=== PATIENT | male | born 1940 | race Caucasian/White ===

== ENCOUNTER 2017-01-05 16:29 | Inpatient (IN) | payer MEDICARE, MEDICAID ==
[2017-01-05] MEDS: Piperacillin/Tazobactam 2.25 GM in Sodium Chloride 0.9% 50 ML IV SCH ×2 (18:51→23:57)
[2017-01-05] MEDS ORDERED: Nitroglycerin 0.4 MG Tab.SL SL PRN (18:53)
[2017-01-05] MEDS ORDERED: Acetaminophen 500 MG Tab PO PRN (18:54)
[2017-01-05] MEDS ORDERED: Vancomycin 1.7 GM in Sodium Chloride 0.9% 500 ML IV ONE (19:00)
[2017-01-05] MEDS: Furosemide 20 MG/2 ML VIAL IVPUSH SCH (23:52)
[2017-01-06] MEDS: Carvedilol 3.125 MG Tab PO SCH ×3 (00:01→19:30)
--- NOTE | 2017-01-06 00:30 | HP ---
This is an admission history and physical for a patient who was admitted directly from clinic today. Source of information came from the patient's spouse and from the patient himself. CHIEF COMPLAINT: Weakness, lightheadedness, and occasional slurred speech. HISTORY OF PRESENT ILLNESS: The patient has known bladder cancer. He has had hematuria with lesions cauterized by his urologist, an indwelling Gruber was in place for a period of time, and when it was removed, he redeveloped his hematuria and his urologist is aware of this. He had seen Dr. Barros in clinic for a UTI in late October 2016 and was treated with Cipro antibiotic. He did well for a couple of weeks, returned to clinic, I saw him about a week ago, and he has was complaining of head cold-type symptoms. We placed him on Ceftin for probable acute on chronic sinusitis at that time, and he came back in for his one- week followup because he was developing worsening dizziness and weakness. The patient had labs and x-rays performed in clinic, and he had significant abnormalities requiring him to be admitted to the hospital. SOCIAL HISTORY: The patient is an active smoker as is his spouse. He uses alcohol socially. ALLERGIES: HE HAS NO KNOWN DRUG ALLERGIES. HE HAS NO LATEX ALLERGIES. PAST MEDICAL HISTORY: Medical/surgical history is positive for a 1. Left middle cerebral artery CVA. 2. Carotid stenosis with endarterectomy. 3. History of colon polyps. 4. History of bladder cancer with persisting hematuria. 5. Chronic renal insufficiency. 6. COPD. 7. History of abdominal aortic aneurysm. 8. 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 9. A history of hypertension. MEDICATIONS: Current medications upon admission to the hospital are Coreg 3.125 b.i.d., aspirin 81 mg p.o. daily, nitroglycerin 0.4 mg sublingual p.r.n., and Ceftin 500 mg p.o. b.i.d. REVIEW OF SYSTEMS: GENERAL/VITAL SIGNS: The patient admits to fatigue, but he has had no fever or weight loss. His weight has been steady at approximately 145 to 148 pounds. HEENT: Eyes, he reports no vision changes. ENT, reports that his head cold has improved. There is no longer any nasal congestion, sore throat, or ear fullness. CARDIOVASCULAR: He denies any chest pain or palpitations. However, he does have some dyspnea on exertion. RESPIRATORY: No coughing or wheezing, but he does get short of breath with exertion. GI: No nausea, vomiting, diarrhea, constipation, heartburn, or rectal bleeding. : No dysuria; however, he continues with kevon hematuria, sometimes passing clots. MUSCULOSKELETAL: No complaints of specific joint inflammation or limitations in motion. SKIN: No rashes or sores. NEUROLOGIC: No complaints of focal weakness or headache. PSYCHIATRIC: No complaints of depression. PHYSICAL EXAMINATION: GENERAL: A thin elderly male, appears chronically ill. He is in no acute distress. VITALS SIGNS: Vital signs while in clinic show the patient to be afebrile with pulse of 88, respirations of 18, blood pressure of 118/52, and an oxygen saturation of 100%. HEENT: His eyes show pale conjunctivae. He is anicteric. EOMI. PERRLA. Ears, nose, and throat shows his nose to be clear. He does have a scar from his old basal cancer surgery. His ears show normal TMs bilaterally. Throat is clear without signs of thrush. NECK: Symmetrical. No bruits. No thyromegaly. No JVD. LYMPH: Normal. No adenopathy. LUNGS: Clear. HEART: Regular rate and rhythm. No murmurs, rubs, or gallops. No S3. No S4. ABDOMEN: Soft. No mass. Nontender. No organomegaly. BACK: No CVA or cord tenderness. SKIN: No rashes, sores, or lesions; however, he is pale. EXTREMITIES: No clubbing or cyanosis. He does have some mild edema of both his upper and lower extremities. NEUROLOGIC: No focal deficits noted at this time. He has no nystagmus. His Barany is negative. PSYCHIATRIC: He has normal judgment and insight. He is oriented. His memory is intact. His mood is appropriate. ASSESSMENT: 1. Sepsis. 2. Severe anemia secondary to hematuria from bladder cancer. 3. Coronary artery disease. 4. Chronic obstructive pulmonary disease. 5. Chronic renal sufficiency. 6. Active smoker. 7. History of abdominal aortic aneurysm. PLAN: In clinic, a chest x-ray was done, showed no acute changes. Vital signs were done, again no acute changes. CBC was performed showed a hemoglobin of 4.7, his white count was 7.3, his platelet count was 277. On a manual differential, the slabber light noticed that there was bacteria in his blood. His CMP was performed, showed normal electrolytes, normal liver function, total protein was normal, but albumin was slightly low at 3.1. His creatinine was 1.6, slightly higher than his baseline of approximately 1.3. His urine was sent for culture. His blood was sent for culture. A urinalysis just showed kevon blood with negative nitrites, negative leukocytes. The patient will be admitted for IV antibiotics. He will be admitted for blood transfusions. We will be careful not to put him in heart failure. We will monitor EKG before and after he completes his transfusions. We will give him Lasix after his units of blood are given. Once the patient is transfused, hopefully he will feel better enough, we will ambulate him more, and we will monitor his antibiotic levels of vancomycin and monitor his renal functioning to make sure we do not affect it with his vancomycin. Dr. Szymanski will be covering for me, the case was discussed with him, and hopefully the patient will be able to be discharged in a reasonably short amount of time and get him back to his baseline level. THOMAS/CHAIM
[2017-01-06] MEDS: Furosemide 20 MG/2 ML VIAL IVPUSH SCH (06:00)
[2017-01-06] MEDS: Piperacillin/Tazobactam 2.25 GM in Sodium Chloride 0.9% 50 ML IV SCH ×3 (06:01→19:31)
[2017-01-06] MEDS: Lactobacillus Acidophilus/Lactobacillus Sporogenes (Probiotic) Tab PO SCH (08:30)
[2017-01-06] MEDS: Fluticasone/Salmeterol 250-50 MCG Inhalation Powder 14/Diskus INH SCH ×2 (08:31→19:31)
--- NOTE | 2017-01-06 08:31 | CR ---
DATE OF SERVICE: 01/05/2017 CLINICAL DATA: Acute bronchitis, unspecified. PA AND LATERAL CHEST Comparison is made to a prior exam dated 02/16/2016. The patient is status post median sternotomy. The heart size is normal. The lungs are hyperexpanded. There is pleural thickening in the posterior aspect of the left costophrenic angle. The lungs otherwise clear. No pneumothorax. No areas of consolidation. No significant changes from the prior study. IMPRESSION: No evidence of acute intrathoracic disease. [id number] [facility]
--- NOTE | 2017-01-06 08:34 | CR ---
DATE OF SERVICE: 01/05/2017 CLINICAL DATA: Chronic sinusitis, unspecified. PARANASAL SINUSES The paranasal sinuses are clear. No air-fluid levels. No osseous abnormalities. IMPRESSION: Negative exam. [id number] MTDD
[2017-01-06] MEDS: Acetaminophen/Codeine 300-30 MG Tab PO PRN ×2 (15:51→21:22)
--- NOTE | 2017-01-06 17:03 | PCM.PN ---
- General Info Date of Service: 01/06/17 Subjective Update: Pt claims that he is felling better today. appears more energetic now than past few weeks. Feeding well. On further questioning. Pt claims that he has had hematuria for past 2 months since his urinary catheter was removed 2 months ago , but bleeding has got worse in the past 1 month. No pelvic pain or discomfort. Most of his care is from [facility] and his Urologist is Dr. Mullen. Functional Status: Reports: tolerating diet, ambulating, urinating - Review of Systems General: Reports: Weakness, Fatigue, Malaise. Denies: Fever HEENT: Reports: visual changes. Denies: headaches Pulmonary: Reports: shortness of breath. Denies: cough, sputum, hemoptysis, wheezing Cardiovascular: Reports: Dyspnea on Exertion. Denies: Chest Pain, Palpitations Gastrointestinal: Denies: Decreased appetite, Hematochezia, Melena, Nausea, Vomiting Genitourinary: Reports: hematuria. Denies: dysuria, frequency Musculoskeletal: Denies: shoulder pain, joint pain, joint swelling Skin: Denies: pruritis, rash - Patient Data Vitals - most recent: Last Vital Signs Temp 97.9 F 01/06/17 11:47 Pulse 104 H 01/06/17 11:47 Resp 12 01/06/17 11:47 BP 98/68 01/06/17 11:47 Pulse Ox 99 01/06/17 11:47 Weight - most recent: 64.864 kg I&O - last 24 hours: Intake & Output 01/06/17 01/06/17 01/06/17 06:59 14:59 22:59 Intake Total 752 0 Output Total 2300 Balance -1548 0 Lab Results last 24 hrs: Laboratory Results - last 24 hr 01/05/17 01/05/17 01/05/17 Range/Units 16:35 16:35 16:35 WBC 7.3 (4.0-11.0) K/uL RBC 2.06 L (4.50-6.50) M/uL Hgb 4.7 L* D (13.0-18.0) g/dL Hct 16.0 L* D (40.0-54.0) % MCV 78 (76-96) fL MCH 22.8 L D (27.0-32.0) pg MCHC 29.4 L (31.0-35.0) g/dL RDW 16.6 H (11.0-16.0) % Plt Count 277 D (150-400) K/uL MPV 8.6 (6.0-10.0) fL Neut % (Auto) (45.0-70.0) % Lymph % (Auto) (20.0-40.0) % Cole % (Auto) (3.0-10.0) % Eos % (Auto) (1.0-5.0) % Baso % (Auto) (0.0-0.5) % Neut # (Auto) (2.00-7.50) K/uL Lymph # (Auto) (1.50-4.00) K/uL Cole # (Auto) (0.20-0.80) K/uL Eos # (Auto) (0.04-0.40) K/uL Baso # (Auto) (0.02-0.10) K/uL Add Manual Diff Yes Neutrophils % (Manual) 64.0 (45.0-70.0) % Lymphocytes % (Manual) 25.0 (20.0-40.0) % Monocytes % (Manual) 10.0 (3.0-10.0) % Eosinophils % (Manual) 1.0 (1.0-5.0) % Differential Comment Hypochromasia Moderate H Poikilocytosis Few Anisocytosis Moderate H Microcytosis Moderate H Macrocytosis Few Target Cells Few H Stomatocytes Few Elliptocytes Few H ESR 75 H (0-20) mm/hr Sodium 142 (136-145) mmol/L Potassium 4.8 (3.5-5.1) mmol/L Chloride 107 (98-107) mmol/L Carbon Dioxide 21.3 (21.0-32.0) mmol/L Anion Gap 18.5 H (5.0-15.0) mmol/L BUN 36 H D (8-26) mg/dL Creatinine 1.64 H D (0.70-1.30) mg/dL Est Cr Clr Drug Dosing 2.24 mL/min Estimated GFR (MDRD) 41 L (>60) MLS/MIN BUN/Creatinine Ratio 22.0 (6-25) Glucose 118 H D (74-100) mg/dL Lactic Acid (0.90-1.70) mmol/L Calcium 9.0 (8.5-10.1) mg/dL Total Bilirubin 0.5 (0.0-1.0) mg/dL AST 18 (15-37) U/L ALT 16 (12-78) U/L Alkaline Phosphatase 76 (46-116) U/L Total Protein 6.7 (6.4-8.2) g/dL Albumin 3.1 L (3.4-5.0) g/dL Globulin 3.6 (2.2-4.2) g/dL Albumin/Globulin Ratio 0.9 (0.8-2.0) Urine Color Red Urine Appearance Cloudy (CLEAR) Urine pH 5.5 (5.0-8.0) Ur Specific [place] 1.020 (1.003-1.030) Urine Protein >=300 H (NEGATIVE) mg/dL Urine Glucose (UA) Negative (NEGATIVE) mg/dL Urine Ketones Negative (NEGATIVE) mg/dL Urine Occult Blood Large H (NEGATIVE) Urine Nitrite Negative (NEGATIVE) Urine Bilirubin Negative (NEGATIVE) Urine Urobilinogen 0.2 (0.2-1.0) E.U./dL Ur Leukocyte Esterase Negative (NEGATIVE) Urine RBC >100 H /HPF Urine WBC 0-5 H /HPF Vancomycin Trough (5.0-10.0) ug/mL Blood Type Gel Antibody Screen Crossmatch 01/05/17 01/05/17 01/06/17 Range/Units 16:40 19:15 07:20 WBC 6.9 (4.0-11.0) K/uL RBC 3.09 L (4.50-6.50) M/uL Hgb 7.8 L D (13.0-18.0) g/dL Hct 24.0 L D (40.0-54.0) % MCV 78 (76-96) fL MCH 25.2 L (27.0-32.0) pg MCHC 32.5 (31.0-35.0) g/dL RDW 15.9 (11.0-16.0) % Plt Count 217 D (150-400) K/uL MPV 9.0 (6.0-10.0) fL Neut % (Auto) 61.3 (45.0-70.0) % Lymph % (Auto) 20.8 (20.0-40.0) % Cole % (Auto) 14.2 H (3.0-10.0) % Eos % (Auto) 3.3 (1.0-5.0) % Baso % (Auto) 0.4 (0.0-0.5) % Neut # (Auto) 4.21 (2.00-7.50) K/uL Lymph # (Auto) 1.43 L (1.50-4.00) K/uL Cole # (Auto) 0.98 H (0.20-0.80) K/uL Eos # (Auto) 0.23 (0.04-0.40) K/uL Baso # (Auto) 0.03 (0.02-0.10) K/uL Add Manual Diff Neutrophils % (Manual) (45.0-70.0) % Lymphocytes % (Manual) (20.0-40.0) % Monocytes % (Manual) (3.0-10.0) % Eosinophils % (Manual) (1.0-5.0) % Differential Comment Hypochromasia Poikilocytosis Anisocytosis Microcytosis Macrocytosis Target Cells Stomatocytes Elliptocytes ESR (0-20) mm/hr Sodium (136-145) mmol/L Potassium (3.5-5.1) mmol/L Chloride (98-107) mmol/L Carbon Dioxide (21.0-32.0) mmol/L Anion Gap (5.0-15.0) mmol/L BUN (8-26) mg/dL Creatinine (0.70-1.30) mg/dL Est Cr Clr Drug Dosing mL/min Estimated GFR (MDRD) (>60) MLS/MIN BUN/Creatinine Ratio (6-25) Glucose (74-100) mg/dL Lactic Acid 1.48 (0.90-1.70) mmol/L Calcium (8.5-10.1) mg/dL Total Bilirubin (0.0-1.0) mg/dL AST (15-37) U/L ALT (12-78) U/L Alkaline Phosphatase (46-116) U/L Total Protein (6.4-8.2) g/dL Albumin (3.4-5.0) g/dL Globulin (2.2-4.2) g/dL Albumin/Globulin Ratio (0.8-2.0) Urine Color Urine Appearance (CLEAR) Urine pH (5.0-8.0) Ur Specific [place] (1.003-1.030) Urine Protein (NEGATIVE) mg/dL Urine Glucose (UA) (NEGATIVE) mg/dL Urine Ketones (NEGATIVE) mg/dL Urine Occult Blood (NEGATIVE) Urine Nitrite (NEGATIVE) Urine Bilirubin (NEGATIVE) Urine Urobilinogen (0.2-1.0) E.U./dL Ur Leukocyte Esterase (NEGATIVE) Urine RBC /HPF Urine WBC /HPF Vancomycin Trough (5.0-10.0) ug/mL Blood Type A POSITIVE Gel Antibody Screen Negative Crossmatch See Detail 01/06/17 01/06/17 01/06/17 Range/Units 07:20 07:20 14:53 WBC 6.9 (4.0-11.0) K/uL RBC 3.34 L (4.50-6.50) M/uL Hgb 8.7 L (13.0-18.0) g/dL Hct 26.4 L (40.0-54.0) % MCV 79 (76-96) fL MCH 26.0 L (27.0-32.0) pg MCHC 33.0 (31.0-35.0) g/dL RDW 16.3 H (11.0-16.0) % Plt Count 185 (150-400) K/uL MPV 9.2 (6.0-10.0) fL Neut % (Auto) 51.6 (45.0-70.0) % Lymph % (Auto) 28.1 (20.0-40.0) % Cole % (Auto) 16.7 H (3.0-10.0) % Eos % (Auto) 3.0 (1.0-5.0) % Baso % (Auto) 0.6 H (0.0-0.5) % Neut # (Auto) 3.56 (2.00-7.50) K/uL Lymph # (Auto) 1.94 (1.50-4.00) K/uL Cole # (Auto) 1.15 H (0.20-0.80) K/uL Eos # (Auto) 0.21 (0.04-0.40) K/uL Baso # (Auto) 0.04 (0.02-0.10) K/uL Add Manual Diff Neutrophils % (Manual) (45.0-70.0) % Lymphocytes % (Manual) (20.0-40.0) % Monocytes % (Manual) (3.0-10.0) % Eosinophils % (Manual) (1.0-5.0) % Differential Comment Hypochromasia Poikilocytosis Anisocytosis Microcytosis Macrocytosis Target Cells Stomatocytes Elliptocytes ESR (0-20) mm/hr Sodium 142 (136-145) mmol/L Potassium 4.2 (3.5-5.1) mmol/L Chloride 106 (98-107) mmol/L Carbon Dioxide 23.7 (21.0-32.0) mmol/L Anion Gap 16.5 H (5.0-15.0) mmol/L BUN 31 H (8-26) mg/dL Creatinine 1.47 H (0.70-1.30) mg/dL Est Cr Clr Drug Dosing 37.98 mL/min Estimated GFR (MDRD) 46 L (>60) MLS/MIN BUN/Creatinine Ratio 21.1 (6-25) Glucose 85 (74-100) mg/dL Lactic Acid (0.90-1.70) mmol/L Calcium 8.4 L (8.5-10.1) mg/dL Total Bilirubin (0.0-1.0) mg/dL AST (15-37) U/L ALT (12-78) U/L Alkaline Phosphatase (46-116) U/L Total Protein (6.4-8.2) g/dL Albumin (3.4-5.0) g/dL Globulin (2.2-4.2) g/dL Albumin/Globulin Ratio (0.8-2.0) Urine Color Urine Appearance (CLEAR) Urine pH (5.0-8.0) Ur Specific [place] (1.003-1.030) Urine Protein (NEGATIVE) mg/dL Urine Glucose (UA) (NEGATIVE) mg/dL Urine Ketones (NEGATIVE) mg/dL Urine Occult Blood (NEGATIVE) Urine Nitrite (NEGATIVE) Urine Bilirubin (NEGATIVE) Urine Urobilinogen (0.2-1.0) E.U./dL Ur Leukocyte Esterase (NEGATIVE) Urine RBC /HPF Urine WBC /HPF Vancomycin Trough 16.7 H (5.0-10.0) ug/mL Blood Type Gel Antibody Screen Crossmatch 01/06/17 Range/Units 14:53 WBC (4.0-11.0) K/uL RBC (4.50-6.50) M/uL Hgb (13.0-18.0) g/dL Hct (40.0-54.0) % MCV (76-96) fL MCH (27.0-32.0) pg MCHC (31.0-35.0) g/dL RDW (11.0-16.0) % Plt Count (150-400) K/uL MPV (6.0-10.0) fL Neut % (Auto) (45.0-70.0) % Lymph % (Auto) (20.0-40.0) % Cole % (Auto) (3.0-10.0) % Eos % (Auto) (1.0-5.0) % Baso % (Auto) (0.0-0.5) % Neut # (Auto) (2.00-7.50) K/uL Lymph # (Auto) (1.50-4.00) K/uL Cole # (Auto) (0.20-0.80) K/uL Eos # (Auto) (0.04-0.40) K/uL Baso # (Auto) (0.02-0.10) K/uL Add Manual Diff Neutrophils % (Manual) (45.0-70.0) % Lymphocytes % (Manual) (20.0-40.0) % Monocytes % (Manual) (3.0-10.0) % Eosinophils % (Manual) (1.0-5.0) % Differential Comment Hypochromasia Poikilocytosis Anisocytosis Microcytosis Macrocytosis Target Cells Stomatocytes Elliptocytes ESR (0-20) mm/hr Sodium (136-145) mmol/L Potassium (3.5-5.1) mmol/L Chloride (98-107) mmol/L Carbon Dioxide (21.0-32.0) mmol/L Anion Gap (5.0-15.0) mmol/L BUN (8-26) mg/dL Creatinine 1.56 H (0.70-1.30) mg/dL Est Cr Clr Drug Dosing 35.79 mL/min Estimated GFR (MDRD) 43 L (>60) MLS/MIN BUN/Creatinine Ratio (6-25) Glucose (74-100) mg/dL Lactic Acid (0.90-1.70) mmol/L Calcium (8.5-10.1) mg/dL Total Bilirubin (0.0-1.0) mg/dL AST (15-37) U/L ALT (12-78) U/L Alkaline Phosphatase (46-116) U/L Total Protein (6.4-8.2) g/dL Albumin (3.4-5.0) g/dL Globulin (2.2-4.2) g/dL Albumin/Globulin Ratio (0.8-2.0) Urine Color Urine Appearance (CLEAR) Urine pH (5.0-8.0) Ur Specific [place] (1.003-1.030) Urine Protein (NEGATIVE) mg/dL Urine Glucose (UA) (NEGATIVE) mg/dL Urine Ketones (NEGATIVE) mg/dL Urine Occult Blood (NEGATIVE) Urine Nitrite (NEGATIVE) Urine Bilirubin (NEGATIVE) Urine Urobilinogen (0.2-1.0) E.U./dL Ur Leukocyte Esterase (NEGATIVE) Urine RBC /HPF Urine WBC /HPF Vancomycin Trough (5.0-10.0) ug/mL Blood Type Gel Antibody Screen Crossmatch Med Orders - Current: Current Medications Acetaminophen (Tylenol Extra Strength) 1,000 mg PO Q6H PRN PRN Reason: Pain/Fever Acetaminophen/Codeine Phosphate (Tylenol With Codeine No.3 300mg/30mg) 1 tab PO Q6H PRN PRN Reason: Pain Last Admin: 01/06/17 15:51 Dose: 1 tab Carvedilol (Coreg) 3.125 mg PO BID [facility] Last Admin: 01/06/17 08:30 Dose: 3.125 mg Piperacillin Sod/Tazobactam (Sod 2.25 gm/ Sodium Chloride) 50 mls @ 100 mls/hr IV Q6H ELISSA Last Admin: 01/06/17 13:36 Dose: 100 mls/hr Vancomycin HCl 1 gm/ Sodium (Chloride) 250 mls @ 167 mls/hr IV Q12H [facility] Last Admin: 01/06/17 08:31 Dose: Not Given Lactobacillus Acidophilus (Acidolphilus Extra Strength) 1 tab PO DAILY [facility] Last Admin: 01/06/17 08:30 Dose: 1 tab Nitroglycerin (Nitrostat) 0.4 mg SL ASDIRECTED PRN PRN Reason: CHEST PAIN Fluticasone/Salmeterol (Advair Diskus 250-50) 1 puff INH BID [facility] Last Admin: 01/06/17 08:31 Dose: 1 puff Discontinued Medications Furosemide (Lasix) 20 mg IVPUSH ASDIRECTED [facility] Stop: 01/06/17 01:00 Last Admin: 01/06/17 06:00 Dose: 20 mg Vancomycin HCl 1.7 gm/ Sodium (Chloride) 500 mls @ 250 mls/hr IV ONETIME ONE Stop: 01/05/17 20:59 Last Admin: 01/05/17 20:33 Dose: 250 mls/hr - Exam General: alert, oriented HEENT: Pupils equal, Pupils reactive, EOMI, Mucous membr. moist/pink, Other ( tongue and mucus membrane are pink) Neck: supple Lungs: Clear to auscultation, Normal respiratory effort Cardiovascular: Regular Rate, Regular Rhythm Abdomen: bowel sounds present, soft, no tenderness, no distension Extremities: no edema Peripheral Pulses: 2+: radial (L), radial (R) Skin: warm, dry, intact Neurological: no new focal deficit Psy/Mental Status: alert, normal affect, normal mood - Problem List & Annotations (1) Gross hematuria SNOMED Code(s): 425728968 Code(s): R31.0 - GROSS HEMATURIA Status: Acute Current Visit: Yes (2) Symptomatic anemia SNOMED Code(s): 849644274 Code(s): D64.9 - ANEMIA, UNSPECIFIED Status: Acute Current Visit: Yes - Problem List Review Problem List Initiated/Reviewed/Updated: Yes - My Orders Last 24 Hours: My Active Orders 01/06/17 08:31 Transfuse PRBC [Transfuse Red Blood Cells] [COMM] Stat 01/06/17 14:43 Abdomen Pelvis wo Cont [CT] Routine 01/06/17 14:44 Bladder Irrigation [RC] ASDIRECTED 01/06/17 15:34 Acetaminophen/Codeine [Tylenol with Codeine No.3 300MG/30MG] 1 tab PO Q6H PRN 01/07/17 07:00 CBC WITH AUTO DIFF [HEME] Routine - Assessment Assessment:: Gross hematuria with symptomatic anemia - Plan Plan:: Pt's morning hemoglobin after 2 units of blood transfusion is 7.6. Pt continue to have kevon bloody urine. I have ordered one more unit of PRBC, as he is continuing to bleed. I did discuss patient's cause of anemia with pt and his spouse. We need to stop the bleed. 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 I did contact his Urologist's office at [facility] and discuss patient with the senior resident of Dr. Smith. His recommendation was to do bladder irrigation to get the urine clear and live the catheter in place for bladder decompression to see if it would cause some tamponading effect. Also wanted CT Urogram done. His creat is 1.[address] abdomen and pelvis was done, which appears normal. Have done bladder wash today. Will recheck his CBC in Am. I am not convinced that patient is in sepsis, he appears stable. Will wait for blood culture report before stopping the antibiotics.
[2017-01-06] MEDS: LORazepam 1 MG Tab PO PRN (19:03)
[2017-01-07] MEDS: Piperacillin/Tazobactam 2.25 GM in Sodium Chloride 0.9% 50 ML IV SCH ×2 (00:40→06:10)
[2017-01-07] MEDS: Carvedilol 3.125 MG Tab PO SCH ×2 (09:03→19:50)
[2017-01-07] MEDS: Lactobacillus Acidophilus/Lactobacillus Sporogenes (Probiotic) Tab PO SCH (09:04)
[2017-01-07] MEDS: Fluticasone/Salmeterol 250-50 MCG Inhalation Powder 14/Diskus INH SCH ×2 (09:05→19:53)
--- NOTE | 2017-01-07 09:16 | CT ---
Date of Service: 01/06/17 Clinical Data: Hematuria. UNENHANCED ABDOMEN AND PELVIC CT Multislice acquisition through the abdomen and pelvis without IV or oral contrast was performed. No priors. There are emphysematous changes in both lower lungs. There are linear densities in both lower lungs consistent with linear atelectasis or fibrosis. There are mild atelectatic changes in both lung bases with a small area of consolidation in the left lung base. Pneumonia cannot be excluded. There is also mild pleural thickening and pleural calcification in the left lower chest posteriorly. The unenhanced liver appears normal. No focal hepatic lesions. There is a small calcified gallstone within the gallbladder. No pericholecystic fluid. The spleen appears normal. The pancreas appears normal. The right and left adrenals appear normal. There is atrophy of the left kidney. No nephrocalcinosis or nephrolithiasis. No hydronephrosis or hydroureter. There is a Gurber catheter within the bladder. There is apparent diffuse thickening of the bladder wall. This may be related to nondistention. Cystitis or an infiltrating process should at least be considered. The prostate is mildly enlarged. There is a moderate amount of stool noted throughout the colon and rectum. There is mild diverticulosis of the descending and sigmoid colon. No evidence of diverticulitis. There is a fusiform aneurysm of the abdominal aorta measuring 4.0 cm in diameter. No evidence of leakage. No free air. No free fluid. No dilated loops of bowel. No adenopathy. IMPRESSION: 1. Cholelithiasis. 2. 4.0 cm abdominal aortic aneurysm. No evidence of leakage. 3. Gruber catheter within the bladder. There is apparent diffuse bladder wall thickening. This is probably secondary to nondistention. Cystitis or an infiltrating process should at least be considered. 4. Other findings as discussed above. [id number] [facility]
[2017-01-07] MEDS: LORazepam 1 MG Tab PO PRN (10:42)
--- NOTE | 2017-01-07 16:52 | PCM.PN ---
- General Info Date of Service: 01/07/17 Subjective Update: Pt claims he feels fine. No concerns. still having kevon bloody urine in the urobag. No fever or chills. tolerating diet well. Functional Status: Reports: pain controlled, tolerating diet, ambulating, urinating - Review of Systems General: Denies: Fever, Weakness, Fatigue HEENT: Denies: sinus congestion, rhinitis Pulmonary: Denies: shortness of breath, pleuritic chest pain, cough, sputum Cardiovascular: Denies: Palpitations, Lightheadedness Gastrointestinal: Denies: Hematochezia, Melena, Nausea, Vomiting Genitourinary: Reports: hematuria. Denies: dysuria, frequency, flank pain Musculoskeletal: Denies: joint pain, joint swelling Skin: Denies: pruritis, rash Neurological: Denies: Confusion, Dizziness Psychiatric: Denies: confusion, depression - Patient Data Vitals - most recent: Last Vital Signs Temp 97.5 F 01/07/17 08:00 Pulse 64 01/07/17 16:00 Resp 18 01/07/17 16:00 BP 116/54 L 01/07/17 16:00 Pulse Ox 100 01/07/17 16:00 Weight - most recent: 64.864 kg I&O - last 24 hours: Intake & Output 01/07/17 01/07/17 01/07/17 06:59 14:59 22:59 Intake Total 550 Output Total 1800 Balance -1250 Lab Results last 24 hrs: Laboratory Results - last 24 hr 01/07/17 01/07/17 01/07/17 Range/Units 07:05 07:05 07:05 WBC 7.7 (4.0-11.0) K/uL RBC 3.34 L (4.50-6.50) M/uL Hgb 8.7 L (13.0-18.0) g/dL Hct 26.4 L (40.0-54.0) % MCV 79 (76-96) fL MCH 26.0 L (27.0-32.0) pg MCHC 33.0 (31.0-35.0) g/dL RDW 16.4 H (11.0-16.0) % Plt Count 180 (150-400) K/uL MPV 9.6 (6.0-10.0) fL Neut % (Auto) 56.2 (45.0-70.0) % Lymph % (Auto) 21.3 (20.0-40.0) % [place] % (Auto) 17.2 H (3.0-10.0) % Eos % (Auto) 4.9 (1.0-5.0) % Baso % (Auto) 0.4 (0.0-0.5) % Neut # (Auto) 4.34 (2.00-7.50) K/uL Lymph # (Auto) 1.65 (1.50-4.00) K/uL [place] # (Auto) 1.33 H (0.20-0.80) K/uL Eos # (Auto) 0.38 (0.04-0.40) K/uL Baso # (Auto) 0.03 (0.02-0.10) K/uL Sodium 140 (136-145) mmol/L Potassium 4.1 (3.5-5.1) mmol/L Chloride 107 (98-107) mmol/L Carbon Dioxide 23.5 (21.0-32.0) mmol/L Anion Gap 13.6 (5.0-15.0) mmol/L BUN 28 H (8-26) mg/dL Creatinine 1.48 H (0.70-1.30) mg/dL Est Cr Clr Drug Dosing 37.72 mL/min Estimated GFR (MDRD) 46 L (>60) MLS/MIN BUN/Creatinine Ratio 18.9 (6-25) Glucose 88 (74-100) mg/dL Calcium 8.3 L (8.5-10.1) mg/dL Vancomycin Trough 6.9 (5.0-10.0) ug/mL Piter Results last 24 hrs: Microbiology 01/05/17 17:50 MRSA Surveillance Culture - Final Nares, Unspecified NO MRSA ISOLATED 01/05/17 17:40 Aerobic Blood Culture - Preliminary Blood NO GROWTH AFTER 1 DAY Anaerobic Blood Culture - Preliminary NO GROWTH AFTER 1 DAY 01/05/17 17:45 Aerobic Blood Culture - Preliminary Blood NO GROWTH AFTER 1 DAY Anaerobic Blood Culture - Preliminary NO GROWTH AFTER 1 DAY Med Orders - Current: Current Medications Acetaminophen (Tylenol Extra Strength) 1,000 mg PO Q6H PRN PRN Reason: Pain/Fever Last Admin: 01/06/17 20:10 Dose: 1,000 mg Acetaminophen/Codeine Phosphate (Tylenol With Codeine No.3 300mg/30mg) 1 tab PO Q6H PRN PRN Reason: Pain Last Admin: 01/06/17 21:22 Dose: 1 tab Hydrocodone Bitart/Acetaminophen ([place] 325-5 Mg) 1 tab PO TID PRN PRN Reason: Pain Carvedilol (Coreg) 3.125 mg PO BID [facility] Last Admin: 01/07/17 09:03 Dose: 3.125 mg Lactobacillus Acidophilus (Acidolphilus Extra Strength) 1 tab PO DAILY [facility] Last Admin: 01/07/17 09:04 Dose: 1 tab Lorazepam (Ativan) 1 mg PO Q8H PRN PRN Reason: anxiety Last Admin: 01/07/17 10:42 Dose: 1 mg Nitroglycerin (Nitrostat) 0.4 mg SL ASDIRECTED PRN PRN Reason: CHEST PAIN Fluticasone/Salmeterol (Advair Diskus 250-50) 1 puff INH BID [facility] Last Admin: 01/07/17 09:05 Dose: 1 puff Senna/Docusate Sodium (Senna Plus) 1 tab PO BEDTIME PRN PRN Reason: Constipation Discontinued Medications Furosemide (Lasix) 20 mg IVPUSH ASDIRECTED [facility] Stop: 01/06/17 01:00 Last Admin: 01/06/17 06:00 Dose: 20 mg Piperacillin Sod/Tazobactam (Sod 2.25 gm/ Sodium Chloride) 50 mls @ 100 mls/hr IV Q6H [facility] Last Admin: 01/07/17 06:10 Dose: 100 mls/hr Vancomycin HCl 1.7 gm/ Sodium (Chloride) 500 mls @ 250 mls/hr IV ONETIME ONE Stop: 01/05/17 20:59 Last Admin: 01/05/17 20:33 Dose: 250 mls/hr Vancomycin HCl 1 gm/ Sodium (Chloride) 250 mls @ 167 mls/hr IV Q12H [facility] Last Admin: 01/07/17 08:40 Dose: Not Given - Exam Quality Assessment: urine catheter (Kevon bloody urine) General: alert, oriented HEENT: Pupils equal, Pupils reactive, EOMI, Mucous membr. moist/pink Neck: supple Lungs: Clear to auscultation, Normal respiratory effort Cardiovascular: Regular Rate, Regular Rhythm Abdomen: bowel sounds present, soft, no tenderness, no distension Extremities: no edema Peripheral Pulses: 2+: radial (L), radial (R) Skin: warm, dry, intact Neurological: no new focal deficit Psy/Mental Status: alert, normal affect, normal mood - Problem List & Annotations (1) Gross hematuria SNOMED Code(s): 443786505 Code(s): R31.0 - GROSS HEMATURIA Status: Acute Current Visit: Yes (2) Symptomatic anemia SNOMED Code(s): 968926350 Code(s): D64.9 - ANEMIA, UNSPECIFIED Status: Acute Current Visit: Yes - Problem List Review Problem List Initiated/Reviewed/Updated: Yes - My Orders Last 24 Hours: My Active Orders 01/06/17 18:51 LORazepam [Ativan] 1 mg PO Q8H PRN 01/07/17 15:56 Acetaminophen/HYDROcodone [[place] 325-5 MG] 1 tab PO TID PRN 01/07/17 15:59 Docusate Sodium/Sennosides [Senna Plus] 1 tab PO BEDTIME PRN 01/08/17 07:00 CBC WITH AUTO DIFF [HEME] Routine - Assessment Assessment:: Gross hematuria with symptomatic anemia - Plan Plan:: Pt's morning hemoglobin after 2 units of blood transfusion is 7.6. Pt continue to have kevon bloody urine. I have ordered one more unit of PRBC, as he is continuing to bleed. I did discuss patient's cause of anemia with pt and his spouse. We need to stop the bleed. 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 I did contact his Urologist's office at [facility] and discuss patient with the senior resident of Dr. Smith. His recommendation was to do bladder irrigation to get the urine clear and live the catheter in place for bladder decompression to see if it would cause some tamponading effect. Also wanted CT Urogram done. His creat is 1.[address] abdomen and pelvis was done, which appears normal. Have done bladder wash today. Will recheck his CBC in Am. I am not convinced that patient is in sepsis, he appears stable. Will wait for blood culture report before stopping the antibiotics. 01/07/17:Pt claims he feels fine, has been tolerating diet well. Has been having bloody urine in the urobag. His hemoglobin is at 8.7 today stable. No concerns. Pt's Son is here. Concerned about his bleeding. Prefer to have him transferred to [facility] for further care. I did call Dr. Celis, Urologist semiconductor equipment technician at [facility]. He declines to accept patient. Hence After discussing with family, called at [facility]. Dr. Christopher is concerned about cauterizing the badder due to the friable nature of the tissue from high grade cancer. Prefers to wait for few days with catheter and see if it improves. Advised to call back on Tuesday. So, at this point, will monitor patient over the weekend here. and repeat CBC in Am to check his hemoglobin. I have stopped his vancomycin and zosyn at this point. As he does not have any signs of sepsis and his blood cultures are negative.
[2017-01-08] MEDS: Acetaminophen/HYDROcodone 325-5 MG Tab PO PRN (08:10)
[2017-01-08] MEDS: Lactobacillus Acidophilus/Lactobacillus Sporogenes (Probiotic) Tab PO SCH (08:10)
[2017-01-08] MEDS: Carvedilol 3.125 MG Tab PO SCH ×2 (08:11→19:59)
[2017-01-08] MEDS: Fluticasone/Salmeterol 250-50 MCG Inhalation Powder 14/Diskus INH SCH ×2 (08:16→19:59)
[2017-01-08] MEDS: Oxybutynin 5 MG Tab.ER PO SCH (09:53)
--- NOTE | 2017-01-08 10:47 | PCM.PN ---
- General Info Date of Service: 01/08/17 Subjective Update: Pt calims he feel fine. he still continues to have bloody urine. Ridley draining well. He does complain of bladder spasms on and off. No abdominal pain. No fever or chills. His hemoglobin is down today at 7.9. Functional Status: Reports: tolerating diet, ambulating, urinating (with ridley in place) - Review of Systems General: Denies: Fever, Weakness, Fatigue HEENT: Denies: glasses, visual changes Cardiovascular: Denies: Chest Pain, Palpitations, Lightheadedness Gastrointestinal: Denies: Nausea, Vomiting Genitourinary: Reports: hematuria. Denies: dysuria, frequency Musculoskeletal: Denies: neck pain, shoulder pain, foot pain, joint pain Skin: Denies: pruritis, rash Neurological: Denies: Confusion, Dizziness Psychiatric: Denies: confusion, depression - Patient Data Vitals - most recent: Last Vital Signs Temp 97.5 F 01/08/17 08:00 Pulse 64 01/08/17 08:11 Resp 20 01/08/17 08:00 BP 112/45 L 01/08/17 08:11 Pulse Ox 99 01/08/17 08:00 Weight - most recent: 64.864 kg I&O - last 24 hours: Intake & Output 01/07/17 01/08/17 01/08/17 22:59 06:59 14:59 Intake Total 780 150 Output Total 1250 475 Balance -470 -325 Lab Results last 24 hrs: Laboratory Results - last 24 hr 01/08/17 Range/Units 08:00 WBC 9.0 (4.0-11.0) K/uL RBC 3.05 L (4.50-6.50) M/uL Hgb 7.9 L (13.0-18.0) g/dL Hct 24.7 L (40.0-54.0) % MCV 81 (76-96) fL MCH 25.9 L (27.0-32.0) pg MCHC 32.0 (31.0-35.0) g/dL RDW 17.1 H (11.0-16.0) % Plt Count 174 (150-400) K/uL MPV 9.2 (6.0-10.0) fL Neut % (Auto) 67.5 (45.0-70.0) % Lymph % (Auto) 16.8 L (20.0-40.0) % [place] % (Auto) 12.8 H (3.0-10.0) % Eos % (Auto) 2.6 (1.0-5.0) % Baso % (Auto) 0.3 (0.0-0.5) % Neut # (Auto) 6.06 (2.00-7.50) K/uL Lymph # (Auto) 1.51 (1.50-4.00) K/uL [place] # (Auto) 1.15 H (0.20-0.80) K/uL Eos # (Auto) 0.23 (0.04-0.40) K/uL Baso # (Auto) 0.03 (0.02-0.10) K/uL Piter Results last 24 hrs: Microbiology 01/05/17 17:40 Aerobic Blood Culture - Preliminary Blood NO GROWTH AFTER 2 DAYS Anaerobic Blood Culture - Preliminary NO GROWTH AFTER 2 DAYS 01/05/17 17:45 Aerobic Blood Culture - Preliminary Blood NO GROWTH AFTER 2 DAYS Anaerobic Blood Culture - Preliminary NO GROWTH AFTER 2 DAYS 01/05/17 16:35 Urine Culture - Final Urine, Voided MIXED DELFINO SUGGESTIVE OF CONTAMINATION. 01/05/17 17:50 MRSA Surveillance Culture - Final Nares, Unspecified NO MRSA ISOLATED Med Orders - Current: Current Medications Acetaminophen (Tylenol Extra Strength) 1,000 mg PO Q6H PRN PRN Reason: Pain/Fever Last Admin: 01/06/17 20:10 Dose: 1,000 mg Acetaminophen/Codeine Phosphate (Tylenol With Codeine No.3 300mg/30mg) 1 tab PO Q6H PRN PRN Reason: Pain Last Admin: 01/06/17 21:22 Dose: 1 tab Hydrocodone Bitart/Acetaminophen ([place] 325-5 Mg) 1 tab PO TID PRN PRN Reason: Pain Last Admin: 01/08/17 08:10 Dose: 1 tab Carvedilol (Coreg) 3.125 mg PO BID [facility] Last Admin: 01/08/17 08:11 Dose: 3.125 mg Lactobacillus Acidophilus (Acidolphilus Extra Strength) 1 tab PO DAILY [facility] Last Admin: 01/08/17 08:10 Dose: 1 tab Lorazepam (Ativan) 1 mg PO Q8H PRN PRN Reason: anxiety Last Admin: 01/07/17 10:42 Dose: 1 mg Nitroglycerin (Nitrostat) 0.4 mg SL ASDIRECTED PRN PRN Reason: CHEST PAIN Oxybutynin Chloride (Oxybutynin Er) 15 mg PO DAILY [facility] Last Admin: 01/08/17 09:53 Dose: 15 mg Fluticasone/Salmeterol (Advair Diskus 250-50) 1 puff INH BID [facility] Last Admin: 01/08/17 08:16 Dose: 1 puff Senna/Docusate Sodium (Senna Plus) 1 tab PO BEDTIME PRN PRN Reason: Constipation Discontinued Medications Furosemide (Lasix) 20 mg IVPUSH ASDIRECTED [facility] Stop: 01/06/17 01:00 Last Admin: 01/06/17 06:00 Dose: 20 mg Piperacillin Sod/Tazobactam (Sod 2.25 gm/ Sodium Chloride) 50 mls @ 100 mls/hr IV Q6H [facility] Last Admin: 01/07/17 06:10 Dose: 100 mls/hr Vancomycin HCl 1.7 gm/ Sodium (Chloride) 500 mls @ 250 mls/hr IV ONETIME ONE Stop: 01/05/17 20:59 Last Admin: 01/05/17 20:33 Dose: 250 mls/hr Vancomycin HCl 1 gm/ Sodium (Chloride) 250 mls @ 167 mls/hr IV Q12H [facility] Last Admin: 01/07/17 08:40 Dose: Not Given - Exam General: alert, oriented HEENT: Pupils equal, Pupils reactive, EOMI, Mucous membr. moist/pink Neck: supple Lungs: Clear to auscultation, Normal respiratory effort Cardiovascular: Regular Rate, Regular Rhythm Abdomen: bowel sounds present, soft, no tenderness, no distension, other (Kevon bloody urine) (Male) Exam: Other (ridley draining bloody urine) Skin: warm, dry, intact Neurological: no new focal deficit - Problem List & Annotations (1) Gross hematuria SNOMED Code(s): 362318862 Code(s): R31.0 - GROSS HEMATURIA Status: Acute Current Visit: Yes (2) Symptomatic anemia SNOMED Code(s): 350117642 Code(s): D64.9 - ANEMIA, UNSPECIFIED Status: Acute Current Visit: Yes - Problem List Review Problem List Initiated/Reviewed/Updated: Yes - My Orders Last 24 Hours: My Active Orders 01/07/17 15:56 Acetaminophen/HYDROcodone [[place] 325-5 MG] 1 tab PO TID PRN 01/07/17 15:59 Docusate Sodium/Sennosides [Senna Plus] 1 tab PO BEDTIME PRN 01/07/17 17:46 Dietary Supplements [RC] BIDMEALS 01/08/17 09:45 Oxybutynin [Oxybutynin ER] 15 mg PO DAILY - Assessment Assessment:: Gross hematuria with symptomatic anemia - Plan Plan:: Pt's morning hemoglobin after 2 units of blood transfusion is 7.6. Pt continue to have kevon bloody urine. I have ordered one more unit of PRBC, as he is continuing to bleed. I did discuss patient's cause of anemia with pt and his spouse. We need to stop the bleed. 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 I did contact his Urologist's office at [facility] and discuss patient with the senior resident of Dr. Smith. His recommendation was to do bladder irrigation to get the urine clear and live the catheter in place for bladder decompression to see if it would cause some tamponading effect. Also wanted CT Urogram done. His creat is 1.[address] abdomen and pelvis was done, which appears normal. Have done bladder wash today. Will recheck his CBC in Am. I am not convinced that patient is in sepsis, he appears stable. Will wait for blood culture report before stopping the antibiotics. 01/07/17:Pt claims he feels fine, has been tolerating diet well. Has been having bloody urine in the urobag. His hemoglobin is at 8.7 today stable. No concerns. Pt's Son is here. Concerned about his bleeding. Prefer to have him transferred to [facility] for further care. I did call Dr. Celis, Urologist practice professional at [facility]. He declines to accept patient. Hence After discussing with family, called at [facility]. Dr. Christopher is concerned about cauterizing the badder due to the friable nature of the tissue from high grade cancer. Prefers to wait for few days with catheter and see if it improves. Advised to call back on Tuesday. So, at this point, will monitor patient over the weekend here. and repeat CBC in Am to check his hemoglobin. I have stopped his vancomycin and zosyn at this point. As he does not have any signs of sepsis and his blood cultures are negative. 01/09/16 Pt's still continue to have gross hematuria. His hemoglobin has dropped from 8.7 yesterday to 7.9 today. he has been having bladder spasms. have started him on detrol LA 15mg daily. Will try contacting 's office on Tuesday, as his hemoglobin has continued to drop. Might need Urology intervention. Otherwise he has been tolerating diet and ambulation. Will repeat CBC in am.
[2017-01-08] MEDS: Acetaminophen/Codeine 300-30 MG Tab PO PRN (14:07)
[2017-01-08] MEDS: LORazepam 1 MG Tab PO PRN (18:35)
[2017-01-08] MEDS ORDERED: Sodium Chloride 0.9% 10 ML Syringe FLUSH PRN (20:01)
[2017-01-09] MEDS: Oxybutynin 5 MG Tab.ER PO SCH (08:07)
[2017-01-09] MEDS: Carvedilol 3.125 MG Tab PO SCH ×2 (08:08→19:42)
[2017-01-09] MEDS: Fluticasone/Salmeterol 250-50 MCG Inhalation Powder 14/Diskus INH SCH ×2 (08:08→20:15)
[2017-01-09] MEDS: Lactobacillus Acidophilus/Lactobacillus Sporogenes (Probiotic) Tab PO SCH (08:08)
[2017-01-09] MEDS: Acetaminophen/Codeine 300-30 MG Tab PO PRN ×2 (09:20→19:43)
--- NOTE | 2017-01-09 10:50 | PCM.PN ---
- General Info Date of Service: 01/09/17 Subjective Update: Pt has been doing well. Afebrile. Had some irritation around the catheter insertion site. Also there has been some mild bleeding at the insertion site. Urine is draining still bloody. No fever or chills. Tolerating diet well. His hemoglobin is 8.3 today. Functional Status: Reports: pain controlled, tolerating diet, ambulating, urinating (with ridley has bloody urine) - Review of Systems General: Reports: Weakness, Fatigue. Denies: Fever HEENT: Denies: sinus congestion, visual changes Pulmonary: Denies: shortness of breath, pleuritic chest pain, cough, sputum, wheezing Cardiovascular: Denies: Chest Pain, Lightheadedness Gastrointestinal: Denies: Nausea, Vomiting Genitourinary: Reports: hematuria. Denies: dysuria, frequency Musculoskeletal: Denies: joint pain, joint swelling Skin: Denies: pruritis, rash - Patient Data Vitals - most recent: Last Vital Signs Temp 98.0 F 01/09/17 08:00 Pulse 70 01/09/17 08:08 Resp 20 01/09/17 08:00 BP 121/50 L 01/09/17 08:08 Pulse Ox 99 01/09/17 08:00 Weight - most recent: 64.864 kg I&O - last 24 hours: Intake & Output 01/08/17 01/09/17 01/09/17 22:59 06:59 14:59 Intake Total 2160 450 Output Total 500 900 Balance 1660 -450 Lab Results last 24 hrs: Laboratory Results - last 24 hr 01/09/17 Range/Units 08:05 WBC 9.4 (4.0-11.0) K/uL RBC 3.18 L (4.50-6.50) M/uL Hgb 8.3 L (13.0-18.0) g/dL Hct 26.2 L (40.0-54.0) % MCV 82 (76-96) fL MCH 26.1 L (27.0-32.0) pg MCHC 31.7 (31.0-35.0) g/dL RDW 18.3 H (11.0-16.0) % Plt Count 210 D (150-400) K/uL MPV 9.6 (6.0-10.0) fL Neut % (Auto) 56.7 (45.0-70.0) % Lymph % (Auto) 24.4 (20.0-40.0) % [place] % (Auto) 14.4 H (3.0-10.0) % Eos % (Auto) 4.0 (1.0-5.0) % Baso % (Auto) 0.5 (0.0-0.5) % Neut # (Auto) 5.33 (2.00-7.50) K/uL Lymph # (Auto) 2.30 (1.50-4.00) K/uL [place] # (Auto) 1.36 H (0.20-0.80) K/uL Eos # (Auto) 0.38 (0.04-0.40) K/uL Baso # (Auto) 0.05 (0.02-0.10) K/uL Piter Results last 24 hrs: Microbiology 01/05/17 17:40 Aerobic Blood Culture - Preliminary Blood NO GROWTH AFTER 3 DAYS Anaerobic Blood Culture - Preliminary NO GROWTH AFTER 3 DAYS 01/05/17 17:45 Aerobic Blood Culture - Preliminary Blood NO GROWTH AFTER 3 DAYS Anaerobic Blood Culture - Preliminary NO GROWTH AFTER 3 DAYS Med Orders - Current: Current Medications Acetaminophen (Tylenol Extra Strength) 1,000 mg PO Q6H PRN PRN Reason: Pain/Fever Last Admin: 01/06/17 20:10 Dose: 1,000 mg Acetaminophen/Codeine Phosphate (Tylenol With Codeine No.3 300mg/30mg) 1 tab PO Q6H PRN PRN Reason: Pain Last Admin: 01/09/17 09:20 Dose: 1 tab Hydrocodone Bitart/Acetaminophen ([place] 325-5 Mg) 1 tab PO TID PRN PRN Reason: Pain Last Admin: 01/08/17 08:10 Dose: 1 tab Carvedilol (Coreg) 3.125 mg PO BID [facility] Last Admin: 01/09/17 08:08 Dose: 3.125 mg Lactobacillus Acidophilus (Acidolphilus Extra Strength) 1 tab PO DAILY [facility] Last Admin: 01/09/17 08:08 Dose: 1 tab Lorazepam (Ativan) 1 mg PO Q8H PRN PRN Reason: anxiety Last Admin: 01/08/17 18:35 Dose: 1 mg Nitroglycerin (Nitrostat) 0.4 mg SL ASDIRECTED PRN PRN Reason: CHEST PAIN Oxybutynin Chloride (Oxybutynin Er) 15 mg PO DAILY [facility] Last Admin: 01/09/17 08:07 Dose: 15 mg Fluticasone/Salmeterol (Advair Diskus 250-50) 1 puff INH BID [facility] Last Admin: 01/09/17 08:08 Dose: 1 puff Senna/Docusate Sodium (Senna Plus) 1 tab PO BEDTIME PRN PRN Reason: Constipation Sodium Chloride (Saline Flush) 10 ml FLUSH BID PRN PRN Reason: Other Discontinued Medications Furosemide (Lasix) 20 mg IVPUSH ASDIRECTED [facility] Stop: 01/06/17 01:00 Last Admin: 01/06/17 06:00 Dose: 20 mg Piperacillin Sod/Tazobactam (Sod 2.25 gm/ Sodium Chloride) 50 mls @ 100 mls/hr IV Q6H [facility] Last Admin: 01/07/17 06:10 Dose: 100 mls/hr Vancomycin HCl 1.7 gm/ Sodium (Chloride) 500 mls @ 250 mls/hr IV ONETIME ONE Stop: 01/05/17 20:59 Last Admin: 01/05/17 20:33 Dose: 250 mls/hr Vancomycin HCl 1 gm/ Sodium (Chloride) 250 mls @ 167 mls/hr IV Q12H [facility] Last Admin: 01/07/17 08:40 Dose: Not Given - Exam General: alert, oriented HEENT: Pupils equal, Pupils reactive, EOMI, Mucous membr. moist/pink Neck: supple Lungs: Clear to auscultation, Normal respiratory effort Cardiovascular: Regular Rate, Regular Rhythm Abdomen: bowel sounds present, soft, no tenderness, no distension (Male) Exam: Other (Urobag still draining bloody urine) Extremities: no edema - Problem List & Annotations (1) Gross hematuria SNOMED Code(s): 481222251 Code(s): R31.0 - GROSS HEMATURIA Status: Acute Current Visit: Yes (2) Symptomatic anemia SNOMED Code(s): 727055613 Code(s): D64.9 - ANEMIA, UNSPECIFIED Status: Acute Current Visit: Yes - Problem List Review Problem List Initiated/Reviewed/Updated: Yes - My Orders Last 24 Hours: My Active Orders 01/08/17 09:45 Oxybutynin [Oxybutynin ER] 15 mg PO DAILY 01/08/17 20:00 Convert IV to Saline Lock [OM.PC] Routine 01/08/17 20:01 Sodium Chloride 0.9% [Saline Flush] 10 ml FLUSH BID PRN 01/10/17 07:00 CBC WITH AUTO DIFF [HEME] Routine - Assessment Assessment:: Gross hematuria with symptomatic anemia - Plan Plan:: Pt's morning hemoglobin after 2 units of blood transfusion is 7.6. Pt continue to have kevon bloody urine. I have ordered one more unit of PRBC, as he is continuing to bleed. I did discuss patient's cause of anemia with pt and his spouse. We need to stop the bleed. 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 I did contact his Urologist's office at [facility] and discuss patient with the senior resident of Dr. Smith. His recommendation was to do bladder irrigation to get the urine clear and live the catheter in place for bladder decompression to see if it would cause some tamponading effect. Also wanted CT Urogram done. His creat is 1.[address] abdomen and pelvis was done, which appears normal. Have done bladder wash today. Will recheck his CBC in Am. I am not convinced that patient is in sepsis, he appears stable. Will wait for blood culture report before stopping the antibiotics. 01/07/17:Pt claims he feels fine, has been tolerating diet well. Has been having bloody urine in the urobag. His hemoglobin is at 8.7 today stable. No concerns. Pt's Son is here. Concerned about his bleeding. Prefer to have him transferred to [facility] for further care. I did call Dr. Celis, Urologist construction rep at [facility]. He declines to accept patient. Hence After discussing with family, called at [facility]. Dr. Christopher is concerned about cauterizing the badder due to the friable nature of the tissue from high grade cancer. Prefers to wait for few days with catheter and see if it improves. Advised to call back on Tuesday. So, at this point, will monitor patient over the weekend here. and repeat CBC in Am to check his hemoglobin. I have stopped his vancomycin and zosyn at this point. As he does not have any signs of sepsis and his blood cultures are negative. 01/09/16 Pt's still continue to have gross hematuria. His hemoglobin has dropped from 8.7 yesterday to 7.9 today. he has been having bladder spasms. have started him on detrol LA 15mg daily. Will try contacting 's office on Tuesday, as his hemoglobin has continued to drop. Might need Urology intervention. Otherwise he has been tolerating diet and ambulation. Will repeat CBC in am. 01/09/17 Pt status is unchanged. No complaints form patient. His hemoglobin is stable at 8.3 today from 7.9 yesterday. still having bloody urine. Will try calling Dr. Christopher's office tomorrow for urology consultation, as he continue to bleed. Will repeat CBC in Am.
[2017-01-09] MEDS: Acetaminophen/HYDROcodone 325-5 MG Tab PO PRN (18:07)
[2017-01-09] MEDS: LORazepam 1 MG Tab PO PRN (18:08)
[2017-01-10] MEDS: Carvedilol 3.125 MG Tab PO SCH ×2 (07:46→20:01)
[2017-01-10] MEDS: Oxybutynin 5 MG Tab.ER PO SCH (07:48)
[2017-01-10] MEDS: Lactobacillus Acidophilus/Lactobacillus Sporogenes (Probiotic) Tab PO SCH (07:48)
[2017-01-10] MEDS: Fluticasone/Salmeterol 250-50 MCG Inhalation Powder 14/Diskus INH SCH ×2 (07:49→20:00)
[2017-01-10] MEDS: LORazepam 1 MG Tab PO PRN ×2 (07:49→11:22)
[2017-01-10] MEDS ORDERED: diphenhydrAMINE 50 MG Cap PO ONE (09:50)
[2017-01-10] MEDS ORDERED: Acetaminophen 325 MG Tab PO ONE (09:51)
--- NOTE | 2017-01-10 11:34 | PCM.PN ---
- General Info Date of Service: 01/10/17 Subjective Update: Pt claims he has had a good night. The urinary catheter has been bothering him, at times blood leaks around the urethra. Bladder spasms have improved with detrol LA.No fever or chills. Tolerating diet well. No complaints. Functional Status: Reports: pain controlled, tolerating diet, ambulating, urinating (bloody urine in the uorbag) - Review of Systems General: Denies: Fever, Weakness, Fatigue HEENT: Denies: headaches, visual changes Pulmonary: Denies: shortness of breath, pleuritic chest pain, cough, sputum Cardiovascular: Denies: Chest Pain, Lightheadedness Gastrointestinal: Denies: Abdominal pain, Hematochezia, Nausea, Vomiting Genitourinary: Reports: hematuria. Denies: dysuria, frequency, flank pain Musculoskeletal: Denies: joint pain, joint swelling Skin: Denies: pruritis, rash Neurological: Denies: Confusion, Dizziness - Patient Data Vitals - most recent: Last Vital Signs Temp 97.8 F 01/10/17 08:00 Pulse 59 L 01/10/17 08:00 Resp 16 01/10/17 08:00 BP 107/38 L 01/10/17 08:00 Pulse Ox 97 01/10/17 08:00 Weight - most recent: 64.864 kg I&O - last 24 hours: Intake & Output 01/09/17 01/10/17 01/10/17 22:59 06:59 14:59 Intake Total 2560 240 390 Output Total 1000 325 Balance 1560 -85 390 Lab Results last 24 hrs: Laboratory Results - last 24 hr 01/05/17 01/10/17 01/10/17 Range/Units 16:40 07:00 07:15 WBC 6.7 D (4.0-11.0) K/uL RBC 2.84 L (4.50-6.50) M/uL Hgb 7.3 L (13.0-18.0) g/dL Hct 23.6 L (40.0-54.0) % MCV 83 (76-96) fL MCH 25.7 L (27.0-32.0) pg MCHC 30.9 L (31.0-35.0) g/dL RDW 18.2 H (11.0-16.0) % Plt Count 170 (150-400) K/uL MPV 8.8 (6.0-10.0) fL Neut % (Auto) 50.5 (45.0-70.0) % Lymph % (Auto) 26.3 (20.0-40.0) % [place] % (Auto) 17.7 H (3.0-10.0) % Eos % (Auto) 5.0 (1.0-5.0) % Baso % (Auto) 0.5 (0.0-0.5) % Neut # (Auto) 3.36 (2.00-7.50) K/uL Lymph # (Auto) 1.75 (1.50-4.00) K/uL [place] # (Auto) 1.18 H (0.20-0.80) K/uL Eos # (Auto) 0.33 (0.04-0.40) K/uL Baso # (Auto) 0.03 (0.02-0.10) K/uL Blood Type A POSITIVE A POSITIVE Gel Antibody Screen Negative Negative Crossmatch See Detail See Detail Piter Results last 24 hrs: Microbiology 01/05/17 17:40 Aerobic Blood Culture - Preliminary Blood NO GROWTH AFTER 4 DAYS Anaerobic Blood Culture - Preliminary NO GROWTH AFTER 4 DAYS 01/05/17 17:45 Aerobic Blood Culture - Preliminary Blood NO GROWTH AFTER 4 DAYS Anaerobic Blood Culture - Preliminary NO GROWTH AFTER 4 DAYS Med Orders - Current: Current Medications Acetaminophen (Tylenol Extra Strength) 1,000 mg PO Q6H PRN PRN Reason: Pain/Fever Last Admin: 01/06/17 20:10 Dose: 1,000 mg Acetaminophen/Codeine Phosphate (Tylenol With Codeine No.3 300mg/30mg) 1 tab PO Q6H PRN PRN Reason: Pain Last Admin: 01/09/17 19:43 Dose: 1 tab Hydrocodone Bitart/Acetaminophen ([place] 325-5 Mg) 1 tab PO TID PRN PRN Reason: Pain Last Admin: 01/09/17 18:07 Dose: 1 tab Carvedilol (Coreg) 3.125 mg PO BID [facility] Last Admin: 01/10/17 07:46 Dose: 3.125 mg Furosemide (Lasix) 20 mg PO ASDIRECTED [facility] Stop: 01/12/17 10:01 Lactobacillus Acidophilus (Acidolphilus Extra Strength) 1 tab PO DAILY [facility] Last Admin: 01/10/17 07:48 Dose: 1 tab Lorazepam (Ativan) 1 mg PO Q8H PRN PRN Reason: anxiety Last Admin: 01/10/17 11:22 Dose: 1 mg Nitroglycerin (Nitrostat) 0.4 mg SL ASDIRECTED PRN PRN Reason: CHEST PAIN Oxybutynin Chloride (Oxybutynin Er) 15 mg PO DAILY [facility] Last Admin: 01/10/17 07:48 Dose: 15 mg Fluticasone/Salmeterol (Advair Diskus 250-50) 1 puff INH BID [facility] Last Admin: 01/10/17 07:49 Dose: 1 puff Senna/Docusate Sodium (Senna Plus) 1 tab PO BEDTIME PRN PRN Reason: Constipation Sodium Chloride (Saline Flush) 10 ml FLUSH BID PRN PRN Reason: Other Discontinued Medications Acetaminophen (Tylenol) 650 mg PO ONETIME ONE Stop: 01/10/17 09:52 Last Admin: 01/10/17 11:23 Dose: 650 mg Diphenhydramine HCl (Benadryl) 50 mg PO ONETIME ONE Stop: 01/10/17 09:51 Last Admin: 01/10/17 11:23 Dose: 50 mg Furosemide (Lasix) 20 mg IVPUSH ASDIRECTED [facility] Stop: 01/06/17 01:00 Last Admin: 01/06/17 06:00 Dose: 20 mg Piperacillin Sod/Tazobactam (Sod 2.25 gm/ Sodium Chloride) 50 mls @ 100 mls/hr IV Q6H [facility] Last Admin: 01/07/17 06:10 Dose: 100 mls/hr Vancomycin HCl 1.7 gm/ Sodium (Chloride) 500 mls @ 250 mls/hr IV ONETIME ONE Stop: 01/05/17 20:59 Last Admin: 01/05/17 20:33 Dose: 250 mls/hr Vancomycin HCl 1 gm/ Sodium (Chloride) 250 mls @ 167 mls/hr IV Q12H [facility] Last Admin: 01/07/17 08:40 Dose: Not Given - Exam General: alert, oriented HEENT: Pupils equal, Pupils reactive, EOMI, Mucous membr. moist/pink Neck: supple Lungs: Clear to auscultation, Normal respiratory effort Cardiovascular: Regular Rate, Regular Rhythm Abdomen: bowel sounds present, soft, no tenderness, no distension (Male) Exam: Other (ridley draining bloody urine) Extremities: no edema Peripheral Pulses: 2+: radial (L), radial (R), dorsalis pedis (L), dorsalis pedis (R) Skin: warm, intact - Problem List & Annotations (1) Gross hematuria SNOMED Code(s): 661990913 Code(s): R31.0 - GROSS HEMATURIA Status: Acute Current Visit: Yes (2) Symptomatic anemia SNOMED Code(s): 126016455 Code(s): D64.9 - ANEMIA, UNSPECIFIED Status: Acute Current Visit: Yes - Problem List Review Problem List Initiated/Reviewed/Updated: Yes - My Orders Last 24 Hours: My Active Orders 01/10/17 07:15 RED BLOOD CELLS LP [BBK] Routine TYPE AND SCREEN [BBK] Routine 01/10/17 10:00 Furosemide [Lasix] 20 mg PO ASDIRECTED - Assessment Assessment:: Gross hematuria with symptomatic anemia - Plan Plan:: Pt's morning hemoglobin after 2 units of blood transfusion is 7.6. Pt continue to have kevon bloody urine. I have ordered one more unit of PRBC, as he is continuing to bleed. I did discuss patient's cause of anemia with pt and his spouse. We need to stop the bleed. 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 I did contact his Urologist's office at [facility] and discuss patient with the senior resident of Dr. Smith. His recommendation was to do bladder irrigation to get the urine clear and live the catheter in place for bladder decompression to see if it would cause some tamponading effect. Also wanted CT Urogram done. His creat is 1.[address] abdomen and pelvis was done, which appears normal. Have done bladder wash today. Will recheck his CBC in Am. I am not convinced that patient is in sepsis, he appears stable. Will wait for blood culture report before stopping the antibiotics. 01/07/17:Pt claims he feels fine, has been tolerating diet well. Has been having bloody urine in the urobag. His hemoglobin is at 8.7 today stable. No concerns. Pt's Son is here. Concerned about his bleeding. Prefer to have him transferred to [facility] for further care. I did call Dr. Celis, Urologist professional system administrator at [facility]. He declines to accept patient. Hence After discussing with family, called at [facility]. Dr. Christopher is concerned about cauterizing the badder due to the friable nature of the tissue from high grade cancer. Prefers to wait for few days with catheter and see if it improves. Advised to call back on Tuesday. So, at this point, will monitor patient over the weekend here. and repeat CBC in Am to check his hemoglobin. I have stopped his vancomycin and zosyn at this point. As he does not have any signs of sepsis and his blood cultures are negative. 01/09/16 Pt's still continue to have gross hematuria. His hemoglobin has dropped from 8.7 yesterday to 7.9 today. he has been having bladder spasms. have started him on detrol LA 15mg daily. Will try contacting 's office on Tuesday, as his hemoglobin has continued to drop. Might need Urology intervention. Otherwise he has been tolerating diet and ambulation. Will repeat CBC in am. 01/09/17 Pt status is unchanged. No complaints form patient. His hemoglobin is stable at 8.3 today from 7.9 yesterday. still having bloody urine. Will try calling Dr. Christopher's office tomorrow for urology consultation, as he continue to bleed. Will repeat CBC in Am. 01/10/17 Pt feeling better. His hemoglobin has dropped down to 7.3 today, still having bloody urine in the urobag. As per plan, I did call [facility] in [place] and discuss patient with . His recommendation was to transfuse 4 more units of PRBC today and then have patient sent down to [facility] tomorrow morning for cystoscopy. Pt will be direct admit under him to [facility]. I have discussed his recommendation with Patient and he agrees. Transfusion started today. Will keep him NPO after midnight and will have family drive him down in the morning .
[2017-01-10] MEDS: Furosemide 20 MG Tab PO SCH ×3 (15:04→23:05)
[2017-01-11] MEDS: Furosemide 20 MG Tab PO SCH (02:17)
[2017-01-11] MEDS: Lactobacillus Acidophilus/Lactobacillus Sporogenes (Probiotic) Tab PO SCH (07:48)
[2017-01-11] MEDS: Oxybutynin 5 MG Tab.ER PO SCH (07:49)
[2017-01-11] MEDS: Fluticasone/Salmeterol 250-50 MCG Inhalation Powder 14/Diskus INH SCH (07:49)
[2017-01-11] MEDS: Carvedilol 3.125 MG Tab PO SCH (07:49)
--- NOTE | 2017-01-11 08:40 | PCM.DCSUM1 ---
Discharge Summary - Hospital Course HPI Initial Comments: Pt was admitted on 01/06/2017. he did receive 2units of PRBCs over night and his hemoglobin did go upto 7.6 on 01/07/17. Pt symptoms of weakness and shortness of breath had improve slightly . Patient continued to have bloody urine. As there was active bleeding and his hemoglobin was under 8GM, I did transfuse 1 more units of PRBC and his hemoglobin on 01/07/17 was 8.7gms. Pt continued to have gross hematuria. Hence I did contact ( Pt's Urologist at [facility]). Their recommendation was, patient is not a candidate for any major procedure or construction of urinary conduit. They advised me to do bladder irrigation and leave the urinary catheter in place for bladder decompression, which would cause some tamponading effect on bleeding. If the bleeding continues, advised to have him scoped by the nearest urologist in the area, there is no need to transfer patient to [place] for scoping. Bladder irrigation was done, pt continue to bleed, hence I did call Dr. Jacobsen at [facility] per family preference. He declined to accept patient. Hence I did call Dr. Chrisotpher at [facility] and discuss with him. His recommendation was to wait over the weekend and see if the bleeding stopped, otherwise would be happy to accept patient. On 01/08/17 pt's hemoglobin was7.9 and still bleeding, on 01.09.17 hemoglobin was up to 8.3 and bleeding. On 01/10/17 pt continued to bleed and his hemoglobin did drop to 7.3. At this point I did call [facility] and discuss with Dr. Antoine. His recommendation was to transfuse 4 units of PRBC over the day and send patient down to [facility] on 01/11/17 morning at 8 Am for procedure and admission. Pt did receive 4 units of PRBCs over the day. His hemoglobin is 13.4 and his BMP is normal with creatinine of 1.22 with GFR of 58. At this point patient has been transferred to [facility] Under care of Dr. Antoine in stable condition by BLS ambulance in stable condition. Brief History: Pt is a 76 year old male with High grade urothelial cancer of bladder and urethra, who presented to clinic with extreme weakness, shortness of breath and hematuria. On workup His hemoglobin was down to 4.7 with hemotocrit of 16. He has acute symptomatic anemia from blood loss secondary to hematuria. Hence admitted for Blood transfusion and monitoring of hematuria. Kindly see H&P for details. - Discharge Data Discharge Date: 01/11/17 Discharge Disposition: DC/Tfer to Acute Hospital 02 Condition: Good - Discharge Diagnosis/Problem(s) (1) Gross hematuria SNOMED Code(s): 879456567 ICD Code: R31.0 - GROSS HEMATURIA Status: Acute Current Visit: Yes (2) Symptomatic anemia SNOMED Code(s): 567892863 ICD Code: D64.9 - ANEMIA, UNSPECIFIED Status: Acute Current Visit: Yes - Discharge Plan Home Medications: Home Meds Carvedilol 3.125 mg PO BID 12/25/14 [History] Fluticasone/Salmeterol [Advair 250-50 Diskus] 1 puff INH BID 12/25/14 [History] Nitroglycerin [Nitrostat] 0.4 mg SL ASDIRECTED PRN 02/16/16 [History] Aspirin 81 mg PO DAILY 01/05/17 [History] - Discharge Summary/Plan Comment DC Time >30 min.: Yes Discharge Summary/Plan Comment: Pt transferred to [facility] under care of - General Info Date of Service: 01/11/17 Subjective Update: Pt claims he feels fine and very energetic today. No fever or chills. Urobag draining pinkish colored urine. He has been NPO since midnight. Functional Status: Reports: pain controlled, tolerating diet, ambulating, urinating (light pinkish urine in the urobag) - Review of Systems General: Denies: Fever, Weakness HEENT: Denies: headaches, visual changes Pulmonary: Denies: shortness of breath, cough, sputum Cardiovascular: Denies: Chest Pain, Lightheadedness Gastrointestinal: Denies: Nausea, Vomiting Genitourinary: Reports: hematuria. Denies: dysuria, frequency Musculoskeletal: Denies: joint pain, joint swelling Skin: Denies: pruritis, rash Neurological: Denies: Confusion, Dizziness - Patient Data Vitals - Most Recent: Last Vital Signs Temp 98.4 F 01/11/17 05:30 Pulse 61 01/11/17 05:30 Resp 16 01/11/17 05:30 BP 136/52 L 01/11/17 05:30 Pulse Ox 94 L 01/11/17 05:30 Weight - Most Recent: 64.864 kg I&O - Last 24 hours: Intake & Output 01/10/17 01/11/17 01/11/17 22:59 06:59 14:59 Intake Total 1680 1740 Output Total 2510 3250 Balance -830 -1510 Lab Results - Last 24 hrs: Laboratory Results - last 24 hr 01/05/17 01/10/17 01/11/17 Range/Units 16:40 07:15 06:45 WBC 9.3 D (4.0-11.0) K/uL RBC 4.93 (4.50-6.50) M/uL Hgb 13.5 D (13.0-18.0) g/dL Hct 40.0 D (40.0-54.0) % MCV 81 (76-96) fL MCH 27.4 (27.0-32.0) pg MCHC 33.8 (31.0-35.0) g/dL RDW 17.3 H (11.0-16.0) % Plt Count 158 (150-400) K/uL MPV 9.2 (6.0-10.0) fL Neut % (Auto) 63.4 (45.0-70.0) % Lymph % (Auto) 16.3 L (20.0-40.0) % [place] % (Auto) 15.7 H (3.0-10.0) % Eos % (Auto) 4.0 (1.0-5.0) % Baso % (Auto) 0.6 H (0.0-0.5) % Neut # (Auto) 5.91 (2.00-7.50) K/uL Lymph # (Auto) 1.52 (1.50-4.00) K/uL [place] # (Auto) 1.46 H (0.20-0.80) K/uL Eos # (Auto) 0.37 (0.04-0.40) K/uL Baso # (Auto) 0.06 (0.02-0.10) K/uL Sodium (136-145) mmol/L Potassium (3.5-5.1) mmol/L Chloride (98-107) mmol/L Carbon Dioxide (21.0-32.0) mmol/L Anion Gap (5.0-15.0) mmol/L BUN (8-26) mg/dL Creatinine (0.70-1.30) mg/dL Est Cr Clr Drug Dosing mL/min Estimated GFR (MDRD) (>60) MLS/MIN BUN/Creatinine Ratio (6-25) Glucose (74-100) mg/dL Calcium (8.5-10.1) mg/dL Blood Type A POSITIVE A POSITIVE Gel Antibody Screen Negative Negative Crossmatch See Detail See Detail 01/11/17 Range/Units 06:45 WBC (4.0-11.0) K/uL RBC (4.50-6.50) M/uL Hgb (13.0-18.0) g/dL Hct (40.0-54.0) % MCV (76-96) fL MCH (27.0-32.0) pg MCHC (31.0-35.0) g/dL RDW (11.0-16.0) % Plt Count (150-400) K/uL MPV (6.0-10.0) fL Neut % (Auto) (45.0-70.0) % Lymph % (Auto) (20.0-40.0) % [place] % (Auto) (3.0-10.0) % Eos % (Auto) (1.0-5.0) % Baso % (Auto) (0.0-0.5) % Neut # (Auto) (2.00-7.50) K/uL Lymph # (Auto) (1.50-4.00) K/uL [place] # (Auto) (0.20-0.80) K/uL Eos # (Auto) (0.04-0.40) K/uL Baso # (Auto) (0.02-0.10) K/uL Sodium 142 (136-145) mmol/L Potassium 4.2 (3.5-5.1) mmol/L Chloride 102 (98-107) mmol/L Carbon Dioxide 28.1 (21.0-32.0) mmol/L Anion Gap 16.1 H (5.0-15.0) mmol/L BUN 27 H (8-26) mg/dL Creatinine 1.22 (0.70-1.30) mg/dL Est Cr Clr Drug Dosing 45.76 mL/min Estimated GFR (MDRD) 58 L (>60) MLS/MIN BUN/Creatinine Ratio 22.1 (6-25) Glucose 95 (74-100) mg/dL Calcium 9.1 (8.5-10.1) mg/dL Blood Type Gel Antibody Screen Crossmatch LEX Results - Last 24 hrs: Microbiology 01/05/17 17:40 Aerobic Blood Culture - Final Blood NO GROWTH AFTER 5 DAYS Anaerobic Blood Culture - Final NO GROWTH AFTER 5 DAYS 01/05/17 17:45 Aerobic Blood Culture - Final Blood NO GROWTH AFTER 5 DAYS Anaerobic Blood Culture - Final NO GROWTH AFTER 5 DAYS Med Orders - Current: Current Medications Acetaminophen (Tylenol Extra Strength) 1,000 mg PO Q6H PRN PRN Reason: Pain/Fever Last Admin: 01/06/17 20:10 Dose: 1,000 mg Acetaminophen/Codeine Phosphate (Tylenol With Codeine No.3 300mg/30mg) 1 tab PO Q6H PRN PRN Reason: Pain Last Admin: 01/09/17 19:43 Dose: 1 tab Hydrocodone Bitart/Acetaminophen ([place] 325-5 Mg) 1 tab PO TID PRN PRN Reason: Pain Last Admin: 01/09/17 18:07 Dose: 1 tab Carvedilol (Coreg) 3.125 mg PO BID [facility] Last Admin: 01/11/17 07:49 Dose: 3.125 mg Furosemide (Lasix) 20 mg PO ASDIRECTED [facility] Stop: 01/12/17 10:01 Last Admin: 01/11/17 02:17 Dose: 20 mg Lactobacillus Acidophilus (Acidolphilus Extra Strength) 1 tab PO DAILY [facility] Last Admin: 01/11/17 07:48 Dose: Not Given Lorazepam (Ativan) 1 mg PO Q8H PRN PRN Reason: anxiety Last Admin: 01/10/17 11:22 Dose: 1 mg Nitroglycerin (Nitrostat) 0.4 mg SL ASDIRECTED PRN PRN Reason: CHEST PAIN Oxybutynin Chloride (Oxybutynin Er) 15 mg PO DAILY [facility] Last Admin: 01/11/17 07:49 Dose: Not Given Fluticasone/Salmeterol (Advair Diskus 250-50) 1 puff INH BID [facility] Last Admin: 01/11/17 07:49 Dose: 1 puff Senna/Docusate Sodium (Senna Plus) 1 tab PO BEDTIME PRN PRN Reason: Constipation Sodium Chloride (Saline Flush) 10 ml FLUSH BID PRN PRN Reason: Other Discontinued Medications Acetaminophen (Tylenol) 650 mg PO ONETIME ONE Stop: 01/10/17 09:52 Last Admin: 01/10/17 11:23 Dose: 650 mg Diphenhydramine HCl (Benadryl) 50 mg PO ONETIME ONE Stop: 01/10/17 09:51 Last Admin: 01/10/17 11:23 Dose: 50 mg Furosemide (Lasix) 20 mg IVPUSH ASDIRECTED [facility] Stop: 01/06/17 01:00 Last Admin: 01/06/17 06:00 Dose: 20 mg Piperacillin Sod/Tazobactam (Sod 2.25 gm/ Sodium Chloride) 50 mls @ 100 mls/hr IV Q6H [facility] Last Admin: 01/07/17 06:10 Dose: 100 mls/hr Vancomycin HCl 1.7 gm/ Sodium (Chloride) 500 mls @ 250 mls/hr IV ONETIME ONE Stop: 01/05/17 20:59 Last Admin: 01/05/17 20:33 Dose: 250 mls/hr Vancomycin HCl 1 gm/ Sodium (Chloride) 250 mls @ 167 mls/hr IV Q12H [facility] Last Admin: 01/07/17 08:40 Dose: Not Given - Exam General: Reports: alert, oriented HEENT: Reports: Pupils equal, Pupils reactive, EOMI, Mucous membr. moist/pink Neck: Reports: supple Lungs: Reports: Clear to auscultation, Normal respiratory effort Cardiovascular: Reports: Regular Rate, Regular Rhythm Abdomen: Reports: bowel sounds present, soft, no tenderness, no distension (Male) Exam: Other (urobag draining pinkish urine) Extremities: Reports: no edema, normal pulses Skin: Reports: warm, dry, intact *Q Meaningful Use (DIS) - VTE *Q VTE Criteria *Q: - Stroke *Q Stroke Criteria *Q: - AMI *Q AMI Criteria *Q:
[2017-01-11 09:05] VITALS: BP 140/59
== END 2017-01-11 08:13 | DRG 696 ==
LOC: LB.CLINIC 16:29 → LB.MS 17:25
PROVIDERS: ADMIT Family Medicine; ATTEND Internal Medicine
PROC: 30233N1 Transfusion of Nonautologous Red Blood Cells into Peripheral Vein, Percutaneous Approach (ICD-10-PCS; principal; 2017-01-05)
PROC: 30233N1 Transfusion of Nonautologous Red Blood Cells into Peripheral Vein, Percutaneous Approach (ICD-10-PCS; 2017-01-06)
PROC: 30233N1 Transfusion of Nonautologous Red Blood Cells into Peripheral Vein, Percutaneous Approach (ICD-10-PCS; 2017-01-10)
DX: R31.0 Gross hematuria (principal); D50.0 Iron deficiency anemia secondary to blood loss (chronic); J44.9 Chronic obstructive pulmonary disease, unspecified; J32.9 Chronic sinusitis, unspecified; C67.9 Malignant neoplasm of bladder, unspecified; I12.9 Hypertensive chronic kidney disease with stage 1 through stage 4 chronic kidney disease, or unspecified chronic kidney disease; N18.9 Chronic kidney disease, unspecified; R42 Dizziness and giddiness; D63.0 Anemia in neoplastic disease; F17.210 Nicotine dependence, cigarettes, uncomplicated; I65.29 Occlusion and stenosis of unspecified carotid artery; I25.10 Atherosclerotic heart disease of native coronary artery without angina pectoris; Z86.73 Personal history of transient ischemic attack (TIA), and cerebral infarction without residual deficits; J32.8 Other chronic sinusitis; Z85.828 Personal history of other malignant neoplasm of skin; Z79.82 Long term (current) use of aspirin; N32.89 Other specified disorders of bladder; R53.1 Weakness
CPT/HCPCS: 36415; 36430; 70220; 71020; 74176; 80048; 80053; 80202; 81001; 82565; 83605; 85025; 85651; 86850; 86900; 86901; 86920; 86922; 87040; 87086; 93005; A0425; A0429; A9270-GY; J1940; J2543; J3370; J7040; J7050; P9016

== ENCOUNTER 2017-08-24 13:19 | Inpatient (IN) | payer MEDICARE, MEDICAID ==
--- NOTE | 2017-08-24 15:09 | PCM.HP ---
H&P History of Present Illness - General Date of Service: 08/24/17 Admit Problem/Dx: Admission Diagnosis/Problem Admission Diagnosis/Problem Anemia due to blood loss Source of Information: Patient, Family, Old Records History Limitations: Reports: No Limitations - History of Present Illness Initial Comments - Free Text/Narative: This is a 77yo M here for feeling weak and repeat labs with a Hg of 5.4. Patient has been feeling weak for the past 2-3 days. He has love history of bleeding from the bladder post radiation therapy for bladder cancer. He has had prior blood transfusions for the same concern. He has been back to [facility] for this issue since his last hydrobaric treatment and ridley removal. Onset of Symptoms: Reports: Gradual Duration of Symptoms: Reports: Week(s):, Getting Worse Location: Reports: Generalized Severity: Moderate Improves with: Reports: None Worsens with: Reports: None Associated Symptoms: Reports: Weakness - Related Data Allergies/Adverse Reactions: Allergies Allergy/AdvReac Type Severity Reaction Status Date / Time diphenhydramine Allergy Agitation Verified 03/14/17 18:11 [From Benadryl] Home Medications: Home Meds Carvedilol 3.125 mg PO BID 12/25/14 [History] Fluticasone/Salmeterol [Advair 250-50 Diskus] 1 puff INH BID 12/25/14 [History] Nitroglycerin [Nitrostat] 0.4 mg SL ASDIRECTED PRN 02/16/16 [History] Albuterol [Ventolin HFA] 2 puff INH 5XDAY PRN 03/14/17 [History] Ferrous Sulfate 325 mg PO BID 03/14/17 [History] Folic Acid [Folic Acid] 1 mg PO DAILY 03/14/17 [History] Oxybutynin Chloride 5 mg PO BID 03/14/17 [History] Past Medical History HEENT History: Reports: Cataract, Other (See Below) Other HEENT History: hx sores in mouth Cardiovascular History: Reports: CAD, Stents, Syncope Respiratory History: Reports: COPD Gastrointestinal History: Reports: GERD Genitourinary History: Reports: Other (See Below) Other Genitourinary History: bladder cancer, has had blood in urine on and off for over a year. Musculoskeletal History: Reports: Arthritis, Other (See Below) Other Musculoskeletal History: CVA Neurological History: Reports: CVA Psychiatric History: Reports: None Oncologic (Cancer) History: Reports: Bladder Dermatologic History: Reports: Psoriasis, Other (See Below) Other Dermatologic History: Brown spots watching - Infectious Disease History Infectious Disease History: Reports: Chicken Pox, Measles, Mumps, Rubella - Past Surgical History Cardiovascular Surgical History: Reports: Aneurysm, Carotid Endarterectomy, Coronary Artery Bypass Respiratory Surgical History: Reports: None Neurological Surgical History: Reports: None Oncologic Surgical History: Reports: Other (See Below) Social & Family History - Family History Family Medical History: Noncontributory HEENT: Reports: Hearing Impairment Cardiac: Reports: CAD, Heart Murmur, OR, Stent Musculoskeletal: Reports: Arthritis, Back pain, Chronic, Osteoarthritis, Osteoporosis - Tobacco Use Smoking Status *Q: Current Every Day Smoker Years of Tobacco use: 60 Packs/Tins Daily: 1 Used Tobacco, but Quit: No Month Tobacco Last Used: december Second Hand Smoke Exposure: Yes - Alcohol Use Days Per Week of Alcohol Use: 1 Number of Drinks Per Day: 2 Total Drinks Per Week: 2 - Recreational Drug Use Recreational Drug Use: No H&P Review of Systems - Review of Systems: Review Of Systems: ROS reveals no pertinent complaints other than HPI. Exam - Exam Exam: See Below - Exam General: Alert, Oriented, Cooperative HEENT: PERRLA, Conjunctiva Clear Neck: Supple, Trachea Midline Lungs: Clear to Auscultation, Normal Respiratory Effort Cardiovascular: Regular Rate, Systolic Murmur GI/Abdominal Exam: Normal Bowel Sounds Extremities: Normal Inspection Peripheral Pulses: 2+: Dorsalis Pedis (L), Dorsalis Pedis (R) Skin: Dry, Intact, Cool Neurological: Cranial Nerves Intact, Reflexes Equal Bilateral Neuro Extensive - Mental Status: Alert, Oriented x3, Normal Mood/Affect, Memory Intact - Patient Data Lab Results Last 24 hrs: Laboratory Results - last 24 hr 08/24/17 Range/Units 13:23 WBC 6.4 (4.0-11.0) K/uL RBC 2.26 L (4.50-6.50) M/uL Hgb 5.4 L* D (13.0-18.0) g/dL Hct 18.2 L* D (40.0-54.0) % MCV 81 (76-96) fL MCH 23.9 L (27.0-32.0) pg MCHC 29.7 L (31.0-35.0) g/dL RDW 16.5 H (11.0-16.0) % Plt Count 280 D (150-400) K/uL MPV 8.7 (6.0-10.0) fL Neut % (Auto) 57.5 (45.0-70.0) % Lymph % (Auto) 25.4 (20.0-40.0) % [place] % (Auto) 15.7 H (3.0-10.0) % Eos % (Auto) 0.9 L (1.0-5.0) % Baso % (Auto) 0.5 (0.0-0.5) % Neut # (Auto) 3.69 (2.00-7.50) K/uL Lymph # (Auto) 1.63 (1.50-4.00) K/uL [place] # (Auto) 1.01 H (0.20-0.80) K/uL Eos # (Auto) 0.06 (0.04-0.40) K/uL Baso # (Auto) 0.03 (0.02-0.10) K/uL Result Diagrams: 08/24/17 13:23 *Q Meaningful Use (ADM) - VTE *Q VTE Criteria *Q: - Stroke *Q Stroke Criteria *Q: - AMI *Q AMI Criteria *Q: - Problem List (1) Anemia due to blood loss, chronic SNOMED Code(s): 989601132 ICD Code: D50.0 - IRON DEFICIENCY ANEMIA SECONDARY TO BLOOD LOSS (CHRONIC) Status: Acute Priority: High Current Visit: Yes (2) Hypotension SNOMED Code(s): 61239462 ICD Code: I95.9 - HYPOTENSION, UNSPECIFIED Status: Acute Priority: High Current Visit: No Onset Date: 02/16/16 Problem Details: 02/16/16 - Dizziness due to hypotension Qualifiers: Hypotension type: other hypotension type Qualified Code(s): I95.89 - Other hypotension Problem List Initiated/Reviewed/Updated: Yes Orders Last 24hrs: Active Orders 24 hr Category Date Time Status Patient Status [ADT] Routine ADT 08/24/17 15:03 Ordered Oxygen Therapy [RC] PRN Care 08/24/17 15:03 Ordered Vital Signs [RC] Q4H Care 08/24/17 15:03 Ordered Heart Healthy Diet [DIET] Diet 08/24/17 Dinner Ordered RED BLOOD CELLS LP [BBK] Routine Lab 08/24/17 15:03 Ordered TYPE AND SCREEN [BBK] Routine Lab 08/24/17 15:03 Ordered Furosemide [Lasix] Med 08/24/17 20:00 Ordered 20 mg IVPUSH TID Transfuse Red Blood Cells [COMM] Urgent Oth 08/24/17 15:03 Ordered Assessment/Plan Comment:: Patient admitted for telemetry and blood transfusion. Counseled on blood transfusion side effects and benefits. Discussed risks of fluid overload and use of lasix. Discussed f/u Hg and blood work after transfusions. Discussed f/u KIM as directed.
[2017-08-24] MEDS ORDERED: Nitroglycerin 0.4 MG Tab.SL SL PRN (15:18)
[2017-08-24] MEDS ORDERED: Albuterol 8 GM Inhaler INH PRN (15:18)
[2017-08-24] MEDS ORDERED: Acetaminophen/oxyCODONE 325-5 MG Tab PO PRN (16:14)
[2017-08-24] MEDS ORDERED: Carvedilol 3.125 MG Tab ONE (19:27)
[2017-08-24] MEDS ORDERED: Ferrous Sulfate 325 MG Tab ONE (19:27)
[2017-08-24] MEDS ORDERED: Furosemide 20 MG/2 ML VIAL ONE (19:28)
[2017-08-24] MEDS ORDERED: Oxybutynin 5 MG Tab ONE ×2 (19:28→23:00)
[2017-08-24] MEDS ORDERED: Non-Formulary Medication 1 Each (Fluticasone/Salmeterol [Advair 250-50] 1 PUFF) INH SCH (20:00)
[2017-08-24] MEDS ORDERED: Furosemide 20 MG/2 ML VIAL IVPUSH SCH (20:00)
[2017-08-24] MEDS: Ferrous Sulfate 325 MG Tab PO SCH (20:04)
[2017-08-24] MEDS: Doxycycline 100 MG Cap PO SCH (20:04)
[2017-08-24] MEDS: Carvedilol 3.125 MG Tab PO SCH (20:04)
[2017-08-24] MEDS: Oxybutynin 5 MG Tab PO SCH ×2 (20:05→23:01)
[2017-08-24] MEDS: Formoterol/Mometasone 200-5 MCG 8.8 GM Inhaler IH SCH (20:06)
[2017-08-24] MEDS ORDERED: Phenazopyridine 100 MG Tab PO PRN (23:09)
[2017-08-24] MEDS: Phenazopyridine 100 MG Tab ONE ×2 (23:13→23:38)
[2017-08-25] MEDS ORDERED: Carvedilol 3.125 MG Tab ONE (07:32)
[2017-08-25] MEDS ORDERED: Ferrous Sulfate 325 MG Tab ONE (07:32)
[2017-08-25] MEDS ORDERED: Folic Acid 1 MG Tab ONE (07:33)
[2017-08-25] MEDS ORDERED: Oxybutynin 5 MG Tab ONE (07:33)
[2017-08-25] MEDS ORDERED: Folic Acid 1 MG Tab PO SCH (08:00)
[2017-08-25] MEDS: Carvedilol 3.125 MG Tab PO SCH (08:34)
[2017-08-25] MEDS: Ferrous Sulfate 325 MG Tab PO SCH (08:34)
[2017-08-25] MEDS: Formoterol/Mometasone 200-5 MCG 8.8 GM Inhaler IH SCH (08:35)
[2017-08-25] MEDS: Oxybutynin 5 MG Tab PO SCH (08:35)
[2017-08-25] MEDS: Doxycycline 100 MG Cap PO SCH (08:35)
[2017-08-25 15:29] VITALS: BP 136/56
--- NOTE | 2017-08-25 16:21 | PCM.DCSUM1 ---
Discharge Summary - Discharge Data Discharge Date: 08/25/17 Discharge Disposition: Home, Self-Care 01 Condition: Good - Discharge Diagnosis/Problem(s) (1) Anemia due to blood loss, chronic SNOMED Code(s): 262581636 ICD Code: D50.0 - IRON DEFICIENCY ANEMIA SECONDARY TO BLOOD LOSS (CHRONIC) Status: Acute Priority: High Current Visit: Yes (2) Hypotension SNOMED Code(s): 05724076 ICD Code: I95.9 - HYPOTENSION, UNSPECIFIED Status: Acute Priority: High Current Visit: No Onset Date: 02/16/16 Problem Details: 02/16/16 - Dizziness due to hypotension Qualifiers: Hypotension type: other hypotension type Qualified Code(s): I95.89 - Other hypotension - Patient Instructions Diet: Regular Diet as Tolerated Activity: As Tolerated - Discharge Plan Home Medications: Home Meds Carvedilol 3.125 mg PO BID 12/25/14 [History] Fluticasone/Salmeterol [Advair 250-50 Diskus] 1 puff INH BID 12/25/14 [History] Nitroglycerin [Nitrostat] 0.4 mg SL ASDIRECTED PRN 02/16/16 [History] Albuterol [Ventolin HFA] 2 puff INH 5XDAY PRN 03/14/17 [History] Ferrous Sulfate 325 mg PO BID 03/14/17 [History] Folic Acid [Folic Acid] 1 mg PO DAILY 03/14/17 [History] Oxybutynin Chloride 5 mg PO BID 03/14/17 [History] Doxycycline Hyclate [Doxycycline Hyclate] 100 mg PO BID 08/24/17 [History] Forms: Take Home DC Nutrition Plan - Discharge Summary/Plan Comment Discharge Summary/Plan Comment: Counseled patient on blood loss from his hematuria. Patient and have plan to go to [place] today or tomorrow and see his Urologist. Discussed close monitoring of symptoms and anemia. F/u as directed in clinic and with his specialist. F/u Hg labs as directed. RTC or ER as needed if further symptoms or concerns. - Patient Data Vitals - Most Recent: Last Vital Signs Temp 36.3 C 08/25/17 15:29 Pulse 60 08/25/17 15:29 Resp 16 08/25/17 15:29 BP 136/56 L 12/07/17 15:29 Pulse Ox 60 L 08/25/17 12:25 Weight - Most Recent: 62.596 kg I&O - Last 24 hours: Intake & Output 08/25/17 08/25/17 08/25/17 06:59 14:59 22:59 Intake Total 0 0 390 Balance 0 0 390 Lab Results - Last 24 hrs: Laboratory Results - last 24 hr 08/24/17 08/25/17 Range/Units 15:03 07:05 Hgb 7.6 L D (13.0-18.0) g/dL Blood Type A POSITIVE Gel Antibody Screen Negative Crossmatch See Detail Med Orders - Current: Current Medications Albuterol (Ventolin Hfa) 8 gm INH 5XDAY PRN PRN Reason: Shortness of Breath Carvedilol (Coreg) 3.125 mg PO BID [facility] Last Admin: 08/25/17 08:34 Dose: 3.125 mg Doxycycline Hyclate (Vibramycin) 100 mg PO BID [facility] Last Admin: 08/25/17 08:35 Dose: 100 mg Ferrous Sulfate (Ferrous Sulfate) 325 mg PO BID [facility] Last Admin: 08/25/17 08:34 Dose: 325 mg Folic Acid (Folic Acid) 1 mg PO DAILY [facility] Last Admin: 08/25/17 08:34 Dose: 1 mg Mometasone Furoate/Formoterol Fumar (Dulera 200-5 Mcg) 2 puff IH BID [facility] Last Admin: 08/25/17 08:35 Dose: 2 puff Nitroglycerin (Nitrostat) 0.4 mg SL ASDIRECTED PRN PRN Reason: Pain Oxybutynin Chloride (Oxybutynin) 5 mg PO BID [facility] Last Admin: 08/25/17 08:35 Dose: 5 mg Oxycodone/Acetaminophen (Percocet 325-5 Mg) 1 tab PO Q4H PRN PRN Reason: Pain Last Admin: 08/24/17 22:55 Dose: 1 tab Phenazopyridine HCl (Pyridium) 100 mg PO DAILY PRN PRN Reason: Other Last Admin: 08/24/17 23:13 Dose: 100 mg Discontinued Medications Carvedilol (Coreg) Confirm Administered Dose 3.125 mg .ROUTE .STK-MED ONE Stop: 08/24/17 19:28 Last Admin: 08/24/17 20:02 Dose: Not Given Carvedilol (Coreg) Confirm Administered Dose 3.125 mg .ROUTE .ST-MED ONE Stop: 08/25/17 07:33 Last Admin: 08/25/17 08:04 Dose: Not Given Ferrous Sulfate (Ferrous Sulfate) Confirm Administered Dose 325 mg .ROUTE .STK- MED ONE Stop: 08/24/17 19:28 Last Admin: 08/24/17 20:02 Dose: Not Given Ferrous Sulfate (Ferrous Sulfate) Confirm Administered Dose 325 mg .ROUTE .ST- MED ONE Stop: 08/25/17 07:33 Last Admin: 08/25/17 08:04 Dose: Not Given Folic Acid (Folic Acid) Confirm Administered Dose 1 mg .ROUTE .ST-MED ONE Stop: 08/25/17 07:34 Last Admin: 08/25/17 08:04 Dose: Not Given Furosemide (Lasix) 20 mg IVPUSH TID ELISSA Stop: 08/24/17 23:59 Last Admin: 08/24/17 20:11 Dose: 20 mg Furosemide (Lasix) Confirm Administered Dose 20 mg .ROUTE .ST-MED ONE Stop: 08/24/17 19:29 Last Admin: 08/24/17 20:02 Dose: Not Given Oxybutynin Chloride (Oxybutynin) Confirm Administered Dose 5 mg .ROUTE .ST-MED ONE Stop: 08/24/17 19:29 Last Admin: 08/24/17 20:02 Dose: Not Given Oxybutynin Chloride (Oxybutynin) Confirm Administered Dose 5 mg .ROUTE .ST-MED ONE Stop: 08/24/17 23:01 Last Admin: 08/24/17 23:11 Dose: Not Given Oxybutynin Chloride (Oxybutynin) Confirm Administered Dose 5 mg .ROUTE .ST-MED ONE Stop: 08/25/17 07:34 Last Admin: 08/25/17 08:04 Dose: Not Given Phenazopyridine HCl (Pyridium) Confirm Administered Dose 100 mg .ROUTE .ST-MED ONE Stop: 08/24/17 23:07 Last Admin: 08/24/17 23:38 Dose: Not Given *Q Meaningful Use (DIS) - VTE *Q VTE Criteria *Q: - Stroke *Q Stroke Criteria *Q: - AMI *Q AMI Criteria *Q:
== END 2017-08-25 16:20 | disposition home or self-care (01) | DRG 812 ==
LOC: LB.BLOODTR 13:19 → LB.MS 15:03
PROVIDERS: ADMIT Family Medicine; ATTEND Family Medicine
PROC: 30233N1 Transfusion of Nonautologous Red Blood Cells into Peripheral Vein, Percutaneous Approach (ICD-10-PCS; principal; 2017-08-24)
DX: D50.0 Iron deficiency anemia secondary to blood loss (chronic) (principal); R31.9 Hematuria, unspecified; C67.9 Malignant neoplasm of bladder, unspecified; I95.9 Hypotension, unspecified; Z88.8 Allergy status to other drugs, medicaments and biological substances; Z79.899 Other long term (current) drug therapy; I25.10 Atherosclerotic heart disease of native coronary artery without angina pectoris; Z95.5 Presence of coronary angioplasty implant and graft; J44.9 Chronic obstructive pulmonary disease, unspecified; K21.9 Gastro-esophageal reflux disease without esophagitis; Z86.73 Personal history of transient ischemic attack (TIA), and cerebral infarction without residual deficits; M19.90 Unspecified osteoarthritis, unspecified site; F17.210 Nicotine dependence, cigarettes, uncomplicated
CPT/HCPCS: 36415; 36430; 85018; 85025; 86850; 86900; 86901; 86920; 86922; A9270-GY; J1940; P9016

== ENCOUNTER 2018-02-25 13:11 | Inpatient (IN) | payer MEDICARE, BC ==
[2018-02-25] MEDS ORDERED: Sodium Chloride 0.9% 10 ML Syringe FLUSH PRN (15:24)
--- NOTE | 2018-02-25 15:24 | EDM.PDOC ---
ED HPI GENERAL MEDICAL PROBLEM - General Chief Complaint: General Stated Complaint: WEAKNESS Time Seen by Provider: 02/25/18 14:00 Source of Information: Reports: Patient History Limitations: Reports: No Limitations - History of Present Illness INITIAL COMMENTS - FREE TEXT/NARRATIVE: According to spouse , patient has been weak and tired for the past few days. He has had hematuria for several years now from his Bladder cancer. concerned if he is weak from anemia. Pt needs help with ambulation. cannot walk by himself. Also pt had been scheduled for a followup CT urogram at [facility] yesterday and his Creat was 3.5, and hence he did not get the procedure done. Pt has had suprapubic discomfort. Pt has loss of appetite.No cough. No nausea or vomiting. No fever or chills. No other complaints Pelvic Pain Score (Numeric/FACES): 5 - Related Data Allergies Allergy/AdvReac Type Severity Reaction Status Date / Time diphenhydramine Allergy Agitation Verified 08/25/17 04:24 [From Jeremi] Home Meds: Home Meds Carvedilol 3.125 mg PO BID 12/25/14 [History] Fluticasone/Salmeterol [Advair 250-50 Diskus] 1 puff INH BID 12/25/14 [History] Nitroglycerin [Nitrostat] 0.4 mg SL ASDIRECTED PRN 02/16/16 [History] Albuterol [Ventolin HFA] 2 puff INH 5XDAY PRN 03/14/17 [History] Ferrous Sulfate 325 mg PO BID 03/14/17 [History] Folic Acid 1 mg PO DAILY 03/14/17 [History] Oxybutynin Chloride 5 mg PO BID 03/14/17 [History] Doxycycline Hyclate 100 mg PO BID 08/24/17 [History] Past Medical History HEENT History: Reports: Cataract, Other (See Below) Other HEENT History: hx sores in mouth Cardiovascular History: Reports: CAD, Stents, Syncope Respiratory History: Reports: COPD Gastrointestinal History: Reports: GERD Genitourinary History: Reports: Other (See Below) Other Genitourinary History: bladder cancer, has had blood in urine on and off for over a year. Musculoskeletal History: Reports: Arthritis, Other (See Below) Other Musculoskeletal History: CVA Neurological History: Reports: CVA Psychiatric History: Reports: None Oncologic (Cancer) History: Reports: Bladder Dermatologic History: Reports: Psoriasis, Other (See Below) Other Dermatologic History: Brown spots watching - Infectious Disease History Infectious Disease History: Reports: Chicken Pox, Measles, Mumps, Rubella - Past Surgical History Cardiovascular Surgical History: Reports: Aneurysm, Carotid Endarterectomy, Coronary Artery Bypass Respiratory Surgical History: Reports: None Neurological Surgical History: Reports: None Oncologic Surgical History: Reports: Other (See Below) Social & Family History - Family History Family Medical History: Noncontributory HEENT: Reports: Hearing Impairment Cardiac: Reports: CAD, Heart Murmur, CT, Stent Musculoskeletal: Reports: Arthritis, Back pain, Chronic, Osteoarthritis, Osteoporosis ED ROS GENERAL - Review of Systems Review Of Systems: See Below Constitutional: Reports: Weakness, Fatigue, Decreased Appetite. Denies: Fever, Chills, Diaphoresis HEENT: Denies: Rhinitis, Throat Pain, Throat Swelling Respiratory: Denies: Shortness of Breath, Wheezing, Pleuritic Chest Pain, Cough , Sputum Cardiovascular: Reports: Lightheadedness. Denies: Chest Pain, Dyspnea on Exertion, Syncope GI/Abdominal: Reports: Abdominal Pain, Anorexia. Denies: Difficulty Swallowing , Melena, Nausea, Vomiting : Reports: Hematuria, Incontinence. Denies: Dysuria, Frequency Musculoskeletal: Denies: Joint Pain, Joint Swelling Skin: Denies: Bruising, Pruritis, Rash Neurological: Denies: Dizziness, Headache, Numbness, Tingling ED EXAM, GENERAL - Physical Exam Exam: See Below Exam Limited By: No Limitations General Appearance: Alert, WD/WN, Thin, Other (Ill appearance) Eye Exam: Bilateral Eye: EOMI, PERRL Ears: Normal External Exam, Normal Canal, Hearing Grossly Normal, Normal TMs Ear Exam: Bilateral Ear: Auricle Normal, Canal Normal, TM normal Nose: Normal Inspection, Normal Mucosa, No Blood Throat/Mouth: Normal Inspection, Normal Lips, Normal Teeth, Normal Gums, Normal Oropharynx, Normal Voice, No Airway Compromise Head: Atraumatic, Normocephalic Neck: Normal Inspection, Supple, Non-Tender, Full Range of Motion Respiratory/Chest: No Respiratory Distress, Lungs Clear, Normal Breath Sounds, No Accessory Muscle Use, Chest Non-Tender Cardiovascular: Normal Peripheral Pulses, Regular Rate, Rhythm, No Edema, No Gallop, No JVD, No Murmur, No Rub Peripheral Pulses: 2+: Radial (L), Radial (R) GI/Abdominal: Normal Bowel Sounds, Soft, No Distention, No Mass, Pelvis Stable, Tender (suprapubic) Extremities: Normal Inspection, Normal Range of Motion, Non-Tender, Normal Capillary Refill, No Pedal Edema Neurological: Alert, Oriented, CN II-XII Intact, Normal Cognition Course - Vital Signs Text/Narrative:: Pt's CBC is stable. His hemoglobin is 9.3 which has been the best. He does have chronic hematuria and he has had transfusion several times in the past. His liver functions are normal, opther than low albumin. His Renal function shows normal electrolytes with Creat of 3.7 from 3.5 and BUN of 84 from 50 yesterday. It does appear like patient is is acute renal failure, which is of prerenal cause of decreased oral intake as his electrolytes and CBC are normal and does say he has not been eating well and has poor appetite.He did receive bolus of 500cc NS. will keep him on NS at 100cc/hr and will recheck BMP in am. Will continue his home meds. Pt and spouse understand and agree with plan. Last Recorded V/S: Last Vital Signs Temp 98.0 F 02/25/18 14:08 Pulse 88 02/25/18 14:08 Resp 16 02/25/18 14:08 BP 121/64 02/25/18 14:08 Pulse Ox 100 02/25/18 14:08 - Orders/Labs/Meds Orders: Active Orders 24 hr Category Date Time Status Patient Status [ADT] Routine ADT 02/25/18 15:25 Ordered Bedrest Bedside Commode [RC] ASDIRECTED Care 02/25/18 15:24 Ordered Height and Weight [RC] UPON Care 02/25/18 15:24 Ordered Intake and Output [RC] QSHIFT Care 02/25/18 15:27 Ordered Oxygen Therapy [RC] PRN Care 02/25/18 15:25 Ordered VTE/DVT Education [RC] Per Unit Routine Care 02/25/18 15:25 Ordered Vital Signs [RC] Q4H Care 02/25/18 15:25 Ordered Mechanical Soft Diet [DIET] Diet 02/25/18 Dinner Ordered BASIC METABOLIC PANEL,BMP [CHEM] Routine Lab 02/26/18 08:00 Ordered Sodium Chloride 0.9% @ 100 MLS/HR(1,000ml) Med 02/25/18 15:30 Ordered Sodium Chloride 0.9% [Normal Saline] 1,000 ml IV ASDIRECTED Sodium Chloride 0.9% [Normal Saline] 500 ml Med 02/25/18 15:30 Ordered IV .BOLUS Sodium Chloride 0.9% [Saline Flush] Med 02/25/18 15:24 Ordered 10 ml FLUSH ASDIRECTED PRN Peripheral IV Insertion Adult [OM.PC] Routine Oth 02/25/18 15:24 Ordered Resuscitation Status Routine Resus Stat 02/25/18 15:24 Ordered Medication Orders Sodium Chloride (Normal Saline) 500 mls @ 999 mls/hr IV .BOLUS ELISSA Sodium Chloride (Normal Saline) 1,000 mls @ 100 mls/hr IV ASDIRECTED ELISSA Sodium Chloride (Saline Flush) 10 ml FLUSH ASDIRECTED PRN PRN Reason: Keep Vein Open Labs: Laboratory Tests 02/25/18 02/25/18 Range/Units 14:10 14:10 WBC 9.7 (4.0-11.0) K/uL RBC 4.30 L (4.50-6.50) M/uL Hgb 9.7 L (13.0-18.0) g/dL Hct 30.6 L (40.0-54.0) % MCV 71 L (76-96) fL MCH 22.6 L (27.0-32.0) pg MCHC 31.7 (31.0-35.0) g/dL RDW 21.2 H (11.0-16.0) % Plt Count 312 (150-400) K/uL MPV 8.4 (6.0-10.0) fL Neut % (Auto) 71.4 H (45.0-70.0) % Lymph % (Auto) 17.7 L (20.0-40.0) % Bibb % (Auto) 9.8 (3.0-10.0) % Eos % (Auto) 0.9 L (1.0-5.0) % Baso % (Auto) 0.2 (0.0-0.5) % Neut # (Auto) 6.91 (2.00-7.50) K/uL Lymph # (Auto) 1.71 (1.50-4.00) K/uL [place]b # (Auto) 0.95 H (0.20-0.80) K/uL Eos # (Auto) 0.09 (0.04-0.40) K/uL Baso # (Auto) 0.02 (0.02-0.10) K/uL Sodium 136 (136-145) mmol/L Potassium 4.8 (3.5-5.1) mmol/L Chloride 101 (98-107) mmol/L Carbon Dioxide 21.1 (21.0-32.0) mmol/L Anion Gap 18.7 H (5.0-15.0) mmol/L BUN 84 H* (8-26) mg/dL Creatinine 3.73 H* (0.70-1.30) mg/dL Est Cr Clr Drug Dosing 14.66 mL/min Estimated GFR (MDRD) 16 L (>60) MLS/MIN BUN/Creatinine Ratio 22.5 (6-25) Glucose 86 (74-100) mg/dL Calcium 9.6 (8.5-10.1) mg/dL Total Bilirubin 0.5 (0.0-1.0) mg/dL AST 22 (15-37) U/L ALT 26 (12-78) U/L Alkaline Phosphatase 72 (46-116) U/L Total Protein 8.1 (6.4-8.2) g/dL Albumin 2.8 L (3.4-5.0) g/dL Globulin 5.3 H (2.2-4.2) g/dL Albumin/Globulin Ratio 0.5 L (0.8-2.0) Meds: Medications Generic Name Dose Route Start Last Admin Trade Name Freq PRN Reason Stop Dose Admin Sodium Chloride 500 mls @ 999 mls/hr 02/25/18 15:30 Normal Saline IV .BOLUS ELISSA Sodium Chloride 1,000 mls @ 100 mls/hr 02/25/18 15:30 Normal Saline IV ASDIRECTED ELISSA Sodium Chloride 10 ml 02/25/18 15:24 Saline Flush FLUSH ASDIRECTED PRN Keep Vein Open Departure - Departure Time of Disposition: 15:00 Disposition: Admitted As Inpatient 65 Condition: Fair Clinical Impression: Acute renal failure - Discharge Information Referrals: PCP,None [Primary Care Provider] - Forms: ED Department Discharge - Problem List & Annotations (1) Acute renal failure SNOMED Code(s): 40954208 Code(s): N17.9 - ACUTE KIDNEY FAILURE, UNSPECIFIED Status: Acute Current Visit: Yes (2) Gross hematuria SNOMED Code(s): 811410492 Code(s): R31.0 - GROSS HEMATURIA Status: Acute Current Visit: No - Problem List Review Problem List Initiated/Reviewed/Updated: Yes - My Orders Last 24 Hours: My Active Orders 02/25/18 15:24 Bedrest Bedside Commode [RC] ASDIRECTED Height and Weight [RC] UPON Sodium Chloride 0.9% [Saline Flush] 10 ml FLUSH ASDIRECTED PRN Peripheral IV Insertion Adult [OM.PC] Routine Resuscitation Status Routine 02/25/18 15:25 Patient Status [ADT] Routine Oxygen Therapy [RC] PRN VTE/DVT Education [RC] Per Unit Routine Vital Signs [RC] Q4H 02/25/18 15:27 Intake and Output [RC] QSHIFT 02/25/18 15:30 Sodium Chloride 0.9% @ 100 MLS/HR(1,000ml) Sodium Chloride 0.9% [Normal Saline] 1,000 ml IV ASDIRECTED Sodium Chloride 0.9% [Normal Saline] 500 ml IV .BOLUS 02/25/18 Dinner Mechanical Soft Diet [DIET] 02/26/18 08:00 BASIC METABOLIC PANEL,BMP [CHEM] Routine - Assessment/Plan Last 24 Hours: My Active Orders 02/25/18 15:24 Bedrest Bedside Commode [RC] ASDIRECTED Height and Weight [RC] UPON Sodium Chloride 0.9% [Saline Flush] 10 ml FLUSH ASDIRECTED PRN Peripheral IV Insertion Adult [OM.PC] Routine Resuscitation Status Routine 02/25/18 15:25 Patient Status [ADT] Routine Oxygen Therapy [RC] PRN VTE/DVT Education [RC] Per Unit Routine Vital Signs [RC] Q4H 02/25/18 15:27 Intake and Output [RC] QSHIFT 02/25/18 15:30 Sodium Chloride 0.9% @ 100 MLS/HR(1,000ml) Sodium Chloride 0.9% [Normal Saline] 1,000 ml IV ASDIRECTED Sodium Chloride 0.9% [Normal Saline] 500 ml IV .BOLUS 02/25/18 Dinner Mechanical Soft Diet [DIET] 02/26/18 08:00 BASIC METABOLIC PANEL,BMP [CHEM] Routine Assessment:: Acute renal failure- Prerenal Plan: Pt's CBC is stable. His hemoglobin is 9.3 which has been the best. He does have chronic hematuria and he has had transfusion several times in the past. His liver functions are normal, opther than low albumin. His Renal function shows normal electrolytes with Creat of 3.7 from 3.5 and BUN of 84 from 50 yesterday. It does appear like patient is is acute renal failure, which is of prerenal cause of decreased oral intake as his electrolytes and CBC are normal and does say he has not been eating well and has poor appetite.He did receive bolus of 500cc NS. will keep him on NS at 100cc/hr and will recheck BMP in am. Will continue his home meds. Pt and spouse understand and agree with plan.
[2018-02-25] MEDS ORDERED: Sodium Chloride 0.9% 500 ML IV SCH (15:30)
[2018-02-25] MEDS ORDERED: Albuterol 8 GM Inhaler INH PRN (15:58)
[2018-02-25] MEDS ORDERED: Nitroglycerin 0.4 MG Tab.SL SL PRN (15:58)
[2018-02-25] MEDS: Sodium Chloride 0.9% 1,000 ML IV SCH (16:20)
[2018-02-25] MEDS: Ferrous Sulfate 325 MG Tab PO SCH (20:39)
[2018-02-25] MEDS: Carvedilol 3.125 MG Tab PO SCH (20:39)
[2018-02-25] MEDS: DOXYCYCLINE HYCLATE 100 MG PO SCH (20:45)
[2018-02-25] MEDS: Non-Formulary Medication 1 Each (Fluticasone/Salmeterol [Advair 250-50] 1 PUFF) INH SCH (20:45)
[2018-02-25] MEDS: Oxybutynin 5 MG Tab PO SCH (20:46)
[2018-02-26] MEDS: Acetaminophen/HYDROcodone 325-10 MG Tab PO PRN ×3 (00:20→19:19)
[2018-02-26] MEDS: Sodium Chloride 0.9% 1,000 ML IV SCH ×4 (00:21→21:04)
[2018-02-26] MEDS: Oxybutynin 5 MG Tab PO SCH ×2 (08:14→19:19)
[2018-02-26] MEDS: Folic Acid 1 MG Tab PO SCH (08:14)
[2018-02-26] MEDS: Carvedilol 3.125 MG Tab PO SCH ×2 (08:14→19:22)
[2018-02-26] MEDS: Ferrous Sulfate 325 MG Tab PO SCH ×2 (08:14→20:00)
[2018-02-26] MEDS: DOXYCYCLINE HYCLATE 100 MG PO SCH ×2 (11:06→19:23)
[2018-02-26] MEDS: Non-Formulary Medication 1 Each (Fluticasone/Salmeterol [Advair 250-50] 1 PUFF) INH SCH ×2 (11:06→19:24)
--- NOTE | 2018-02-26 14:33 | PCM.PN ---
- General Info Date of Service: 02/26/18 Subjective Update: Pt claims he is feeling better today. has been tolerating oral diet well. Still on IV NS at 100cc/hr. his creat is down form 3.75 to 3.3 and BUN is improving. No complaints or concerns from patient. Functional Status: Denies: Pain Controlled, Tolerating Diet, Ambulating, Urinating - Review of Systems General: Reports: Weakness. Denies: Fever, Chills, Appetite HEENT: Denies: Glasses, Sinus Congestion, Visual Changes Pulmonary: Denies: Shortness of Breath, Cough, Sputum, Hemoptysis Cardiovascular: Denies: Chest Pain, Lightheadedness Gastrointestinal: Denies: Abdominal Pain, Constipation, Nausea, Vomiting Genitourinary: Reports: Hematuria (Chronic). Denies: Dysuria, Frequency Musculoskeletal: Denies: Joint Pain, Joint Swelling Skin: Denies: Bruising, Pruritis, Rash - Patient Data Vitals - Most Recent: Last Vital Signs Temp 98.9 F 02/26/18 12:00 Pulse 64 02/26/18 12:00 Resp 18 02/26/18 12:00 BP 97/51 L 02/26/18 12:00 Pulse Ox 96 02/26/18 12:00 Weight - Most Recent: 59.058 kg I&O - Last 24 Hours: Intake & Output 02/25/18 02/26/18 02/26/18 22:59 06:59 14:59 Intake Total 300 1200 Balance 300 1200 Lab Results Last 24 Hours: Laboratory Results - last 24 hr 02/25/18 02/26/18 Range/Units 14:10 08:30 Sodium 136 144 (136-145) mmol/L Potassium 4.8 4.9 (3.5-5.1) mmol/L Chloride 101 111 H (98-107) mmol/L Carbon Dioxide 21.1 20.9 L (21.0-32.0) mmol/L Anion Gap 18.7 H 17.0 H (5.0-15.0) mmol/L BUN 84 H* 75 H* (8-26) mg/dL Creatinine 3.73 H* 3.35 H* (0.70-1.30) mg/dL Est Cr Clr Drug Dosing 14.66 15.18 mL/min Estimated GFR (MDRD) 16 L 18 L (>60) MLS/MIN BUN/Creatinine Ratio 22.5 22.4 (6-25) Glucose 86 89 (74-100) mg/dL Calcium 9.6 9.1 (8.5-10.1) mg/dL Phosphorus 4.7 (2.5-4.9) mg/dL Magnesium 2.2 (1.8-2.4) mg/dL Total Bilirubin 0.5 (0.0-1.0) mg/dL AST 22 (15-37) U/L ALT 26 (12-78) U/L Alkaline Phosphatase 72 (46-116) U/L Total Protein 8.1 (6.4-8.2) g/dL Albumin 2.8 L (3.4-5.0) g/dL Globulin 5.3 H (2.2-4.2) g/dL Albumin/Globulin Ratio 0.5 L (0.8-2.0) Med Orders - Current: Current Medications Hydrocodone Bitart/Acetaminophen ([place] 325-10 Mg) 1 tab PO Q6H PRN PRN Reason: Pain Last Admin: 02/26/18 08:41 Dose: 1 tab Albuterol (Ventolin Hfa) 0 gm INH 5XDAY PRN PRN Reason: Shortness of Breath Carvedilol (Coreg) 3.125 mg PO BID [facility] Last Admin: 02/26/18 08:14 Dose: 3.125 mg Ferrous Sulfate (Ferrous Sulfate) 325 mg PO BID [facility] Last Admin: 02/26/18 08:14 Dose: 325 mg Folic Acid (Folic Acid) 1 mg PO DAILY [facility] Last Admin: 02/26/18 08:14 Dose: 1 mg Sodium Chloride (Normal Saline) 500 mls @ 999 mls/hr IV .BOLUS [facility] Last Admin: 02/25/18 15:20 Dose: 999 mls/hr Sodium Chloride (Normal Saline) 1,000 mls @ 100 mls/hr IV ASDIRECTED [facility] Last Admin: 02/26/18 11:11 Dose: 100 mls/hr Nitroglycerin (Nitrostat) 0.4 mg SL ASDIRECTED PRN PRN Reason: Pain Non-Formulary Medication (Doxycycline Hyclate [Doxycycline Hyclate]) 100 mg PO BID [facility] Last Admin: 02/26/18 11:06 Dose: Not Given Non-Formulary Medication (Fluticasone/Salmeterol [Advair 250-50]) 1 puff INH BID [facility] Last Admin: 02/26/18 11:06 Dose: Not Given Oxybutynin Chloride (Oxybutynin) 5 mg PO BID [facility] Last Admin: 02/26/18 08:14 Dose: 5 mg Senna/Docusate Sodium (Senna Plus) 1 tab PO BEDTIME [facility] Last Admin: 02/25/18 20:39 Dose: 1 tab Sodium Chloride (Saline Flush) 10 ml FLUSH ASDIRECTED PRN PRN Reason: Keep Vein Open - Exam General: Alert, Oriented HEENT: Pupils Equal, Pupils Reactive, EOMI, Mucous Membr. Moist/[place] Neck: Supple Lungs: Clear to Auscultation, Normal Respiratory Effort Cardiovascular: Regular Rate, Regular Rhythm GI/Abdominal Exam: Normal Bowel Sounds, Soft, Non-Tender, No Organomegaly, No Distention, No Abnormal Bruit, No Mass, Pelvis Stable Back Exam: Normal Inspection, Full Range of Motion Extremities: Normal Inspection, Normal Range of Motion, Non-Tender, No Pedal Edema, Normal Capillary Refill Peripheral Pulses: 2+: Carotid (L), Carotid (R), Radial (L), Radial (R) Skin: Warm, Intact - Problem List & Annotations (1) Acute renal failure SNOMED Code(s): 54046228 Code(s): N17.9 - ACUTE KIDNEY FAILURE, UNSPECIFIED Status: Acute Current Visit: Yes (2) Gross hematuria SNOMED Code(s): 351973812 Code(s): R31.0 - GROSS HEMATURIA Status: Acute Current Visit: No - Problem List Review Problem List Initiated/Reviewed/Updated: Yes - My Orders Last 24 Hours: My Active Orders 02/25/18 15:24 Bedrest Bedside Commode [RC] ASDIRECTED Height and Weight [RC] DAILY Sodium Chloride 0.9% [Saline Flush] 10 ml FLUSH ASDIRECTED PRN Peripheral IV Insertion Adult [OM.PC] Routine Resuscitation Status Routine 02/25/18 15:25 Patient Status [ADT] Routine Oxygen Therapy [RC] PRN VTE/DVT Education [RC] Per Unit Routine Vital Signs [RC] Q4H 02/25/18 15:27 Intake and Output [RC] 02/25/18 15:30 Sodium Chloride 0.9% [Normal Saline] 1,000 ml IV ASDIRECTED Sodium Chloride 0.9% [Normal Saline] 500 ml IV .BOLUS 02/25/18 15:58 Albuterol [Ventolin HFA] 0 gm INH 5XDAY PRN Nitroglycerin [Nitrostat] 0.4 mg SL ASDIRECTED PRN 02/25/18 16:00 Acetaminophen/HYDROcodone [[place] 325-10 MG] 1 tab PO Q6H PRN 02/25/18 20:00 Carvedilol [Coreg] 3.125 mg PO BID Docusate Sodium/Sennosides [Senna Plus] 1 tab PO BEDTIME Doxycycline Hyclate [Doxycycline Hyclate] 100 mg PO BID Ferrous Sulfate 325 mg PO BID Fluticasone/Salmeterol [Advair 250-50] 1 puff INH BID Oxybutynin 5 mg PO BID 02/25/18 Dinner Mechanical Soft Diet [DIET] 02/26/18 08:00 Folic Acid 1 mg PO DAILY - Assessment Assessment:: Acute renal failure- improving - Plan Plan:: Pt's creat today is 3.3. Pt is feeling better. His electrolytes, magnesium and phosphorus are normal.The creat should improve with time. will continue IV fluids. followup in Am with BMP.
[2018-02-26] MEDS ORDERED: LORazepam 0.5 MG Tab PO ONE (21:00)
[2018-02-27] MEDS: Acetaminophen/HYDROcodone 325-10 MG Tab PO PRN ×3 (06:15→17:57)
[2018-02-27] MEDS: Oxybutynin 5 MG Tab PO SCH ×2 (08:58→20:59)
[2018-02-27] MEDS: Folic Acid 1 MG Tab PO SCH (08:58)
[2018-02-27] MEDS: Ferrous Sulfate 325 MG Tab PO SCH ×2 (08:59→21:00)
--- NOTE | 2018-02-27 09:00 | PCM.PN ---
- General Info Date of Service: 02/27/18 Subjective Update: Pt is very drowsy today. He did receive 0.5mg ativan last night. He wakes up , but claims he feels sleepy. No fever or chills. His IV infiltrated last night and his IV fluids were stopped. No other complaints. Has been voiding and his urine is pinkish red from chronic hematuria. No pain or discomfort. Has been feeding well. Functional Status: Reports: Tolerating Diet, Urinating - Review of Systems General: Reports: Weakness. Denies: Fever, Night Sweats, Appetite HEENT: Denies: Ear Pain, Sore Throat Pulmonary: Denies: Shortness of Breath, Cough, Sputum Cardiovascular: Denies: Chest Pain, Lightheadedness Gastrointestinal: Denies: Abdominal Pain, Nausea, Vomiting Genitourinary: Reports: Hematuria. Denies: Dysuria, Frequency Musculoskeletal: Denies: Joint Pain, Joint Swelling Skin: Denies: Pruritis, Rash Neurological: Denies: Dizziness, Headache - Patient Data Vitals - Most Recent: Last Vital Signs Temp 98 F 02/26/18 19:24 Pulse 66 02/26/18 19:24 Resp 18 02/26/18 19:24 BP 122/48 L 02/26/18 19:24 Pulse Ox 98 02/26/18 16:00 Weight - Most Recent: 59.058 kg I&O - Last 24 Hours: Intake & Output 02/26/18 02/27/18 02/27/18 22:59 06:59 14:59 Intake Total 1650 580 Output Total 15 Balance 1635 580 Lab Results Last 24 Hours: Laboratory Results - last 24 hr 02/26/18 02/27/18 Range/Units 08:30 07:10 Sodium 144 146 H (136-145) mmol/L Potassium 4.9 4.6 (3.5-5.1) mmol/L Chloride 111 H 114 H (98-107) mmol/L Carbon Dioxide 20.9 L 21.3 (21.0-32.0) mmol/L Anion Gap 17.0 H 15.3 H (5.0-15.0) mmol/L BUN 75 H* 68 H* (8-26) mg/dL Creatinine 3.35 H* 3.10 H* (0.70-1.30) mg/dL Est Cr Clr Drug Dosing 15.18 16.40 mL/min Estimated GFR (MDRD) 18 L 20 L (>60) MLS/MIN BUN/Creatinine Ratio 22.4 21.9 (6-25) Glucose 89 92 (74-100) mg/dL Calcium 9.1 8.5 (8.5-10.1) mg/dL Phosphorus 4.7 (2.5-4.9) mg/dL Magnesium 2.2 (1.8-2.4) mg/dL Med Orders - Current: Current Medications Hydrocodone Bitart/Acetaminophen ([place] 325-10 Mg) 1 tab PO Q6H PRN PRN Reason: Pain Last Admin: 02/27/18 06:15 Dose: 1 tab Albuterol (Ventolin Hfa) 0 gm INH 5XDAY PRN PRN Reason: Shortness of Breath Carvedilol (Coreg) 3.125 mg PO BID [facility] Last Admin: 02/26/18 19:22 Dose: 3.125 mg Doxycycline Hyclate (Vibramycin) 100 mg PO BID [facility] Ferrous Sulfate (Ferrous Sulfate) 325 mg PO BID [facility] Last Admin: 02/26/18 20:00 Dose: 325 mg Folic Acid (Folic Acid) 1 mg PO DAILY [facility] Last Admin: 02/26/18 08:14 Dose: 1 mg Sodium Chloride (Normal Saline) 500 mls @ 999 mls/hr IV .BOLUS [facility] Last Admin: 02/25/18 15:20 Dose: 999 mls/hr Sodium Chloride (Sodium Chloride 0.45%) 1,000 mls @ 100 mls/hr IV ASDIRECTED [facility] Mometasone Furoate/Formoterol Fumar (Dulera 200-5 Mcg) 2 puff IH BID [facility] Nitroglycerin (Nitrostat) 0.4 mg SL ASDIRECTED PRN PRN Reason: Pain Oxybutynin Chloride (Oxybutynin) 5 mg PO BID [facility] Last Admin: 02/26/18 19:19 Dose: 5 mg Senna/Docusate Sodium (Senna Plus) 1 tab PO BEDTIME [facility] Last Admin: 02/26/18 19:19 Dose: 1 tab Sodium Chloride (Saline Flush) 10 ml FLUSH ASDIRECTED PRN PRN Reason: Keep Vein Open Discontinued Medications Sodium Chloride (Normal Saline) 1,000 mls @ 100 mls/hr IV ASDIRECTED [facility] Last Admin: 02/26/18 21:04 Dose: 100 mls/hr Lorazepam (Ativan) 0.5 mg PO ONETIME ONE Stop: 02/26/18 21:01 Last Admin: 02/26/18 21:18 Dose: 0.5 mg Non-Formulary Medication (Doxycycline Hyclate [Doxycycline Hyclate]) 100 mg PO BID [facility] Last Admin: 02/26/18 19:23 Dose: Not Given Non-Formulary Medication (Fluticasone/Salmeterol [Advair 250-50]) 1 puff INH BID [facility] Last Admin: 02/26/18 19:24 Dose: Not Given - Exam General: Alert, Oriented, Other (slightly drowsy from ativan last night) HEENT: Pupils Equal, Pupils Reactive, EOMI, Mucous Membr. Moist/[place] Neck: Supple Lungs: Clear to Auscultation, Normal Respiratory Effort Cardiovascular: Regular Rate, Regular Rhythm GI/Abdominal Exam: Normal Bowel Sounds, Soft, Non-Tender, No Organomegaly, No Distention, No Abnormal Bruit, No Mass, Pelvis Stable Skin: Warm, Intact Neurological: No New Focal Deficit - Problem List & Annotations (1) Acute renal failure SNOMED Code(s): 87429242 Code(s): N17.9 - ACUTE KIDNEY FAILURE, UNSPECIFIED Status: Acute Current Visit: Yes (2) Gross hematuria SNOMED Code(s): 565428495 Code(s): R31.0 - GROSS HEMATURIA Status: Acute Current Visit: No - Problem List Review Problem List Initiated/Reviewed/Updated: Yes - My Orders Last 24 Hours: My Active Orders 02/26/18 08:00 Folic Acid 1 mg PO DAILY 02/27/18 07:54 CULTURE MRSA SURVEY [RM] Routine 02/27/18 09:00 Sodium Chloride 0.45% @ 100 MLS/HR(1,000ml) Sodium Chloride 0.45% 1,000 ml IV ASDIRECTED 02/27/18 20:00 Doxycycline [Vibramycin] 100 mg PO BID Mometasone/Formoterol [Dulera 200-5 MCG] 2 puff IH BID 02/28/18 07:30 BASIC METABOLIC PANEL,BMP [CHEM] Routine - Assessment Assessment:: Acute renal failure- improving - Plan Plan:: Pt's creat today is 3.3. Pt is feeling better. His electrolytes, magnesium and phosphorus are normal.The creat should improve with time. will continue IV fluids. followup in Am with BMP. 02/27/18 Apparently he has not got IV fluids from midnight as his IV infiltrated. His Sodium today is 146 adn chloride is 114 and his creat is down to 3.1 Will restart IV fluids of 0.45% NS at 100 cc.hr to prevent sodium overload. Also will give him lasix 20mg IV to jump start the kidneys. Will repeat BMP in Am and followup.
[2018-02-27] MEDS: Carvedilol 3.125 MG Tab PO SCH ×2 (09:01→20:59)
[2018-02-27] MEDS ORDERED: Doxycycline 100 MG Cap ONE (09:14)
[2018-02-27] MEDS: Doxycycline 100 MG Cap PO SCH ×2 (09:15→21:00)
[2018-02-27] MEDS ORDERED: Furosemide 20 MG/2 ML VIAL IVPUSH ONE (09:22)
[2018-02-27] MEDS ORDERED: Furosemide 20 MG/2 ML VIAL ONE (09:36)
[2018-02-27] MEDS: Sodium Chloride 0.45% 1,000 ML IV SCH (10:34)
[2018-02-27] MEDS: Formoterol/Mometasone 200-5 MCG 8.8 GM Inhaler IH SCH (20:57)
[2018-02-27] MEDS: Phenazopyridine 100 MG Tab PO SCH (20:59)
[2018-02-27] MEDS ORDERED: Morphine 2 MG/ML Syringe ONE (22:10)
[2018-02-28] MEDS ORDERED: Acetaminophen/HYDROcodone 325-10 MG Tab PO SCH
[2018-02-28] MEDS: Morphine 2 MG/ML Syringe IVPUSH PRN ×9 (02:42→23:30)
[2018-02-28] MEDS: Sodium Chloride 0.9% 1,000 ML IV SCH (05:18)
[2018-02-28] MEDS: Sodium Chloride 0.45% 1,000 ML IV SCH (05:24)
[2018-02-28] MEDS: Phenazopyridine 100 MG Tab PO SCH ×2 (08:05→20:10)
[2018-02-28] MEDS: Oxybutynin 5 MG Tab PO SCH ×2 (08:05→20:10)
[2018-02-28] MEDS: Carvedilol 3.125 MG Tab PO SCH ×2 (08:05→20:10)
[2018-02-28] MEDS: Doxycycline 100 MG Cap PO SCH ×2 (08:05→20:10)
[2018-02-28] MEDS: Ferrous Sulfate 325 MG Tab PO SCH ×2 (08:06→20:10)
[2018-02-28] MEDS: Formoterol/Mometasone 200-5 MCG 8.8 GM Inhaler IH SCH ×2 (08:06→20:11)
[2018-02-28] MEDS: Folic Acid 1 MG Tab PO SCH (08:06)
[2018-02-28] MEDS ORDERED: Furosemide 20 MG/2 ML VIAL ONE ×2 (10:10→17:45)
[2018-02-28] MEDS: Metolazone 5 MG Tab PO SCH ×2 (10:15→16:30)
--- NOTE | 2018-02-28 10:18 | PCM.PN ---
- General Info Date of Service: 02/28/18 Subjective Update: Pt is drowsy , but he is arousable and oriented. He claims presently he is not in pain. He does at time get pain in his pelvic area. Pt's is here is she is concerned about him being on IV morphine for pain. She feels he is groggy and tired from the medication. No fever or chills. He has been tolerating oral diet well. Does have hematuria. He has been started on pyridium yesterday for his urethral discomfort. Also his oral oxycodone was changed to IV morphine yesterday due to his moaning and groaning last night. Functional Status: Reports: Pain Controlled, Tolerating Diet, Ambulating, Urinating Pain Score: 3 - Review of Systems General: Reports: Weakness, Appetite (good). Denies: Fever, Fatigue HEENT: Denies: Headaches, Sinus Congestion, Sore Throat Pulmonary: Denies: Shortness of Breath, Pleuritic Chest Pain, Cough, Sputum Cardiovascular: Denies: Chest Pain, Lightheadedness Gastrointestinal: Denies: Abdominal Pain, Flatus, Nausea, Vomiting Genitourinary: Reports: Dysuria, Incontinence, Hematuria. Denies: Frequency Musculoskeletal: Denies: Joint Pain, Joint Swelling Skin: Denies: Bruising, Pruritis Neurological: Denies: Confusion, Dizziness, Headache, Numbness, Tingling - Patient Data Vitals - Most Recent: Last Vital Signs Temp 98.5 F 02/28/18 07:30 Pulse 56 L 02/28/18 08:05 Resp 16 02/28/18 07:30 BP 122/56 L 02/28/18 08:05 Pulse Ox 96 02/28/18 07:30 Weight - Most Recent: 59.058 kg I&O - Last 24 Hours: Intake & Output 02/27/18 02/28/18 02/28/18 22:59 06:59 14:59 Intake Total 1693 1220 Balance 1693 1220 Lab Results Last 24 Hours: Laboratory Results - last 24 hr 02/28/18 Range/Units 07:20 Sodium 143 (136-145) mmol/L Potassium 4.5 (3.5-5.1) mmol/L Chloride 110 H (98-107) mmol/L Carbon Dioxide 22.1 (21.0-32.0) mmol/L Anion Gap 15.4 H (5.0-15.0) mmol/L BUN 60 H* (8-26) mg/dL Creatinine 2.92 H (0.70-1.30) mg/dL Est Cr Clr Drug Dosing 17.42 mL/min Estimated GFR (MDRD) 21 L (>60) MLS/MIN BUN/Creatinine Ratio 20.5 (6-25) Glucose 84 (74-100) mg/dL Calcium 8.8 (8.5-10.1) mg/dL Piter Results Last 24 Hours: Microbiology 02/27/18 07:54 MRSA Surveillance Culture - Final Nares, Unspecified NO MRSA ISOLATED Med Orders - Current: Current Medications Albuterol (Ventolin Hfa) 0 gm INH 5XDAY PRN PRN Reason: Shortness of Breath Carvedilol (Coreg) 3.125 mg PO BID [facility] Last Admin: 02/28/18 08:05 Dose: 3.125 mg Doxycycline Hyclate (Vibramycin) 100 mg PO BID [facility] Last Admin: 02/28/18 08:05 Dose: 100 mg Ferrous Sulfate (Ferrous Sulfate) 325 mg PO BID [facility] Last Admin: 02/28/18 08:06 Dose: 325 mg Folic Acid (Folic Acid) 1 mg PO DAILY [facility] Last Admin: 02/28/18 08:06 Dose: 1 mg Sodium Chloride (Normal Saline) 500 mls @ 999 mls/hr IV .BOLUS [facility] Last Admin: 02/25/18 15:20 Dose: 999 mls/hr Sodium Chloride (Sodium Chloride 0.45%) 1,000 mls @ 100 mls/hr IV ASDIRECTED [facility] Last Admin: 02/28/18 05:24 Dose: 100 mls/hr Mometasone Furoate/Formoterol Fumar (Dulera 200-5 Mcg) 2 puff IH BID [facility] Last Admin: 02/28/18 08:06 Dose: 2 puff Morphine Sulfate (Morphine) 2 mg IVPUSH Q4H PRN PRN Reason: pain Last Admin: 02/28/18 08:02 Dose: 2 mg Nitroglycerin (Nitrostat) 0.4 mg SL ASDIRECTED PRN PRN Reason: Pain Oxybutynin Chloride (Oxybutynin) 5 mg PO BID [facility] Last Admin: 02/28/18 08:05 Dose: 5 mg Phenazopyridine HCl (Pyridium) 100 mg PO BID [facility] Last Admin: 02/28/18 08:05 Dose: 100 mg Senna/Docusate Sodium (Senna Plus) 1 tab PO BEDTIME [facility] Last Admin: 02/27/18 20:58 Dose: 1 tab Sodium Chloride (Saline Flush) 10 ml FLUSH ASDIRECTED PRN PRN Reason: Keep Vein Open Discontinued Medications Hydrocodone Bitart/Acetaminophen ([place] 325-10 Mg) 1 tab PO Q6H PRN PRN Reason: Pain Last Admin: 02/27/18 17:57 Dose: 1 tab Hydrocodone Bitart/Acetaminophen ([place] 325-10 Mg) 1 tab PO Q6H [facility]ISSA Doxycycline Hyclate (Vibramycin) Confirm Administered Dose 100 mg .ROUTE .STK- MED ONE Stop: 02/27/18 09:15 Last Admin: 02/27/18 09:35 Dose: Not Given Furosemide (Lasix) 20 mg IVPUSH ONETIME ONE Stop: 02/27/18 09:23 Last Admin: 02/27/18 10:36 Dose: 20 mg Furosemide (Lasix) Confirm Administered Dose 20 mg .ROUTE .STK-MED ONE Stop: 02/27/18 09:37 Last Admin: 02/27/18 10:39 Dose: Not Given Sodium Chloride (Normal Saline) 1,000 mls @ 100 mls/hr IV ASDIRECTED [facility] Last Infusion: 02/27/18 07:04 Dose: Infused Lorazepam (Ativan) 0.5 mg PO ONETIME ONE Stop: 02/26/18 21:01 Last Admin: 02/26/18 21:18 Dose: 0.5 mg Morphine Sulfate (Morphine) Confirm Administered Dose 2 mg .ROUTE .STK-MED ONE Stop: 02/27/18 22:11 Last Admin: 02/27/18 22:15 Dose: 2 mg Non-Formulary Medication (Doxycycline Hyclate [Doxycycline Hyclate]) 100 mg PO BID [facility] Last Admin: 02/26/18 19:23 Dose: Not Given Non-Formulary Medication (Fluticasone/Salmeterol [Advair 250-50]) 1 puff INH BID [facility] Last Admin: 02/26/18 19:24 Dose: Not Given - Exam General: Alert, Oriented HEENT: Pupils Equal, Pupils Reactive, EOMI, Mucous Membr. Moist/[place] Neck: Supple Lungs: Clear to Auscultation, Normal Respiratory Effort Cardiovascular: Regular Rate, Regular Rhythm GI/Abdominal Exam: Normal Bowel Sounds, Soft, No Organomegaly, No Distention, No Abnormal Bruit, No Mass, Pelvis Stable, Tender (vague suprapubic discomfort) . No: Guarding, Rigid, Rebound - Problem List & Annotations (1) Acute renal failure SNOMED Code(s): 20020921 Code(s): N17.9 - ACUTE KIDNEY FAILURE, UNSPECIFIED Status: Acute Current Visit: Yes (2) Gross hematuria SNOMED Code(s): 315076615 Code(s): R31.0 - GROSS HEMATURIA Status: Acute Current Visit: No - Problem List Review Problem List Initiated/Reviewed/Updated: Yes - My Orders Last 24 Hours: My Active Orders 02/27/18 20:00 Doxycycline [Vibramycin] 100 mg PO BID Mometasone/Formoterol [Dulera 200-5 MCG] 2 puff IH BID Phenazopyridine [Pyridium] 100 mg PO BID 02/27/18 22:10 Morphine 2 mg IVPUSH Q4H PRN - Assessment Assessment:: Acute renal failure- improving - Plan Plan:: Pt's creat today is 3.3. Pt is feeling better. His electrolytes, magnesium and phosphorus are normal.The creat should improve with time. will continue IV fluids. followup in Am with BMP. 02/27/18 Apparently he has not got IV fluids from midnight as his IV infiltrated. His Sodium today is 146 adn chloride is 114 and his creat is down to 3.1 Will restart IV fluids of 0.45% NS at 100 cc.hr to prevent sodium overload. Also will give him lasix 20mg IV to jump start the kidneys. Will repeat BMP in Am and followup. 02/28/18 Pt's BMP appears better. His creat is 2.9 and BUN is 60 today. He has been having good urine output, but bloody. I have reassured patient and his , that the slow recovery of his renal function could be multifactorial and due to his poor health status. His electorlytes are normal. I have started him on zaroxyln 5mg BID 45 minutes before lasix and lasix 20mg IV BID. Will recheck his BMP in Am. Pt's is a little concerned about use of morphine for pain. She claims that he has had habit of groaning all the time for years now. He groan when he has to sit from lying down position. he groans with any movement. She says he just sits watching TV and groans for no reason. thinks it is habitual. But patient does seem to be in pain and stoic about pain. Hard to say considering his condition. Pt is alert and oriented now. I did ask patient if he is in pain , he says presently he is not, but sometime he does get pain in the lower abdomen. So, I have discussed with both his and patient , about pain management. I will place him on Morphine 2mg IV every 4 hrs as needed. Pt will be asked if he is in pain, if he says he is not, then will hold of his morphine and reassess. Pt and agrees with it. Also on today's visit, I have discussed with both patient and his , about the end of life care in details, considering his deteriorating health condition. Both Patient and his have made decision of not want full code. Patient prefer DNR and DNI. If he stops breathing or heart stops to beat, he does not want any sort of resuscitation. he just want to be left to take the natures course.
[2018-02-28] MEDS: DOXYCYCLINE HYCLATE 100 MG PO SCH (10:24)
[2018-02-28] MEDS: Non-Formulary Medication 1 Each (Fluticasone/Salmeterol [Advair 250-50] 1 PUFF) INH SCH (10:25)
[2018-02-28] MEDS: Furosemide 20 MG/2 ML VIAL IVPUSH SCH ×2 (10:52→17:45)
[2018-02-28] MEDS ORDERED: Morphine 2 MG/ML Syringe IVPUSH ONE (18:43)
[2018-03-01] MEDS: Morphine 2 MG/ML Syringe IVPUSH PRN ×5 (02:49→22:35)
[2018-03-01] MEDS: Sodium Chloride 0.45% 1,000 ML IV SCH ×2 (04:21→14:43)
[2018-03-01] MEDS ORDERED: Furosemide 20 MG/2 ML VIAL IVPUSH SCH (08:00)
[2018-03-01] MEDS: Folic Acid 1 MG Tab PO SCH (08:05)
[2018-03-01] MEDS: Ferrous Sulfate 325 MG Tab PO SCH ×2 (08:05→19:30)
[2018-03-01] MEDS: Carvedilol 3.125 MG Tab PO SCH ×2 (08:05→19:32)
[2018-03-01] MEDS: Phenazopyridine 100 MG Tab PO SCH (08:05)
[2018-03-01] MEDS: Metolazone 5 MG Tab PO SCH (08:06)
[2018-03-01] MEDS: Oxybutynin 5 MG Tab PO SCH ×2 (08:06→19:30)
[2018-03-01] MEDS: Doxycycline 100 MG Cap PO SCH ×2 (08:06→19:30)
[2018-03-01] MEDS: Formoterol/Mometasone 200-5 MCG 8.8 GM Inhaler IH SCH ×2 (08:07→19:30)
[2018-03-01] MEDS ORDERED: Nicotine 21 MG/24 Hr Patch ONE (09:18)
[2018-03-01] MEDS: Nicotine 21 MG/24 Hr Patch TRDERM SCH (09:30)
--- NOTE | 2018-03-01 10:26 | PCM.PN ---
- General Info Date of Service: 03/01/18 Subjective Update: Pt is doing well. He claims at this point he does not have any pain. Also today he did come out of the bed and sit in the chair for some time. Pt feels fine. he has been having good urinary output. No complaints form patient today. Functional Status: Reports: Pain Controlled, Tolerating Diet, Ambulating, Urinating - Review of Systems General: Reports: Weakness. Denies: Fever, Fatigue HEENT: Denies: Glasses, Headaches, Sinus Congestion, Sore Throat Pulmonary: Denies: Shortness of Breath, Cough, Sputum Cardiovascular: Denies: Chest Pain, Lightheadedness Genitourinary: Reports: Incontinence, Hematuria. Denies: Frequency, Burning, Pain, Urgency Musculoskeletal: Denies: Joint Pain, Joint Swelling Skin: Denies: Pruritis, Rash - Patient Data Vitals - Most Recent: Last Vital Signs Temp 98.3 F 02/28/18 23:30 Pulse 69 03/01/18 08:05 Resp 16 03/01/18 04:00 BP 148/62 H 02/28/18 23:30 Pulse Ox 97 02/28/18 23:30 Weight - Most Recent: 59.103 kg I&O - Last 24 Hours: Intake & Output 02/28/18 03/01/18 03/01/18 22:59 06:59 14:59 Intake Total 1450 1300 Balance 1450 1300 Lab Results Last 24 Hours: Laboratory Results - last 24 hr 03/01/18 03/01/18 03/01/18 Range/Units 07:20 07:30 08:34 WBC 11.1 H (4.0-11.0) K/uL RBC 3.85 L (4.50-6.50) M/uL Hgb 8.8 L (13.0-18.0) g/dL Hct 27.6 L (40.0-54.0) % MCV 72 L (76-96) fL MCH 22.9 L (27.0-32.0) pg MCHC 31.9 (31.0-35.0) g/dL RDW 21.3 H (11.0-16.0) % Plt Count 298 (150-400) K/uL MPV 9.2 (6.0-10.0) fL Neut % (Auto) 78.4 H (45.0-70.0) % Lymph % (Auto) 11.1 L (20.0-40.0) % [place] % (Auto) 9.2 (3.0-10.0) % Eos % (Auto) 1.2 (1.0-5.0) % Baso % (Auto) 0.1 (0.0-0.5) % Neut # (Auto) 8.71 H (2.00-7.50) K/uL Lymph # (Auto) 1.23 L (1.50-4.00) K/uL [place] # (Auto) 1.02 H (0.20-0.80) K/uL Eos # (Auto) 0.13 (0.04-0.40) K/uL Baso # (Auto) 0.01 L (0.02-0.10) K/uL Sodium 142 (136-145) mmol/L Potassium 4.7 (3.5-5.1) mmol/L Chloride 107 (98-107) mmol/L Carbon Dioxide 22.1 (21.0-32.0) mmol/L Anion Gap 17.6 H (5.0-15.0) mmol/L BUN 61 H* (8-26) mg/dL Creatinine 3.15 H* (0.70-1.30) mg/dL Est Cr Clr Drug Dosing 16.16 mL/min Estimated GFR (MDRD) 19 L (>60) MLS/MIN BUN/Creatinine Ratio 19.4 (6-25) Glucose 80 (74-100) mg/dL Calcium 8.9 (8.5-10.1) mg/dL Urine Color Yellow Urine Appearance Slightly cloudy (CLEAR) Urine pH 5.0 (5.0-8.0) Ur Specific [place] 1.010 (1.003-1.030) Urine Protein Negative (NEGATIVE) mg/dL Urine Glucose (UA) Negative (NEGATIVE) mg/dL Urine Ketones Negative (NEGATIVE) mg/dL Urine Occult Blood Moderate H (NEGATIVE) Urine Nitrite Positive H (NEGATIVE) Urine Bilirubin Negative (NEGATIVE) Urine Urobilinogen 0.2 (0.2-1.0) E.U./dL Ur Leukocyte Esterase Small H (NEGATIVE) Urine RBC 10-20 H /HPF Urine WBC 0-5 H /HPF Urine Bacteria Few /HPF Piter Results Last 24 Hours: Microbiology 02/27/18 07:54 MRSA Surveillance Culture - Final Nares, Unspecified NO MRSA ISOLATED Med Orders - Current: Current Medications Albuterol (Ventolin Hfa) 0 gm INH 5XDAY PRN PRN Reason: Shortness of Breath Carvedilol (Coreg) 3.125 mg PO BID [facility] Last Admin: 03/01/18 08:05 Dose: 3.125 mg Doxycycline Hyclate (Vibramycin) 100 mg PO BID [facility] Last Admin: 03/01/18 08:06 Dose: 100 mg Ferrous Sulfate (Ferrous Sulfate) 325 mg PO BID [facility] Last Admin: 03/01/18 08:05 Dose: 325 mg Folic Acid (Folic Acid) 1 mg PO DAILY [facility] Last Admin: 03/01/18 08:05 Dose: 1 mg Furosemide (Lasix) 20 mg IVPUSH BID@0800,1700 [facility] Last Admin: 03/01/18 07:35 Dose: 20 mg Sodium Chloride (Normal Saline) 500 mls @ 999 mls/hr IV .BOLUS [facility] Last Admin: 02/25/18 15:20 Dose: 999 mls/hr Sodium Chloride (Sodium Chloride 0.45%) 1,000 mls @ 100 mls/hr IV ASDIRECTED [facility] Last Admin: 03/01/18 04:21 Dose: 100 mls/hr Metolazone (Zaroxolyn) 5 mg PO BIDDIURETIC [facility] Last Admin: 03/01/18 08:06 Dose: 5 mg Mometasone Furoate/Formoterol Fumar (Dulera 200-5 Mcg) 2 puff IH BID [facility] Last Admin: 03/01/18 08:07 Dose: 2 puff Morphine Sulfate (Morphine) 2 mg IVPUSH Q2H PRN PRN Reason: pain Last Admin: 03/01/18 07:30 Dose: 2 mg Nicotine (Habitrol) 21 mg TRDERM DAILY [facility] Nitroglycerin (Nitrostat) 0.4 mg SL ASDIRECTED PRN PRN Reason: Pain Oxybutynin Chloride (Oxybutynin) 5 mg PO BID [facility] Last Admin: 03/01/18 08:06 Dose: 5 mg Phenazopyridine HCl (Pyridium) 100 mg PO BID [facility] Last Admin: 03/01/18 08:05 Dose: 100 mg Senna/Docusate Sodium (Senna Plus) 1 tab PO BID [facility] Last Admin: 03/01/18 08:05 Dose: 1 tab Sodium Chloride (Saline Flush) 10 ml FLUSH ASDIRECTED PRN PRN Reason: Keep Vein Open Discontinued Medications Hydrocodone Bitart/Acetaminophen ([place] 325-10 Mg) 1 tab PO Q6H PRN PRN Reason: Pain Last Admin: 02/27/18 17:57 Dose: 1 tab Hydrocodone Bitart/Acetaminophen ([place] 325-10 Mg) 1 tab PO Q6H [facility] Doxycycline Hyclate (Vibramycin) Confirm Administered Dose 100 mg .ROUTE .STK- MED ONE Stop: 02/27/18 09:15 Last Admin: 02/27/18 09:35 Dose: Not Given Furosemide (Lasix) 20 mg IVPUSH ONETIME ONE Stop: 02/27/18 09:23 Last Admin: 02/27/18 10:36 Dose: 20 mg Furosemide (Lasix) Confirm Administered Dose 20 mg .ROUTE .STK-MED ONE Stop: 02/27/18 09:37 Last Admin: 02/27/18 10:39 Dose: Not Given Furosemide (Lasix) 20 mg IVPUSH BID [facility] Last Admin: 02/28/18 17:45 Dose: 20 mg Furosemide (Lasix) Confirm Administered Dose 20 mg .ROUTE .STK-MED ONE Stop: 02/28/18 10:11 Last Admin: 02/28/18 10:52 Dose: Not Given Furosemide (Lasix) Confirm Administered Dose 20 mg .ROUTE .STK-MED ONE Stop: 02/28/18 17:46 Last Admin: 02/28/18 18:18 Dose: Not Given Sodium Chloride (Normal Saline) 1,000 mls @ 100 mls/hr IV ASDIRECTED [facility] Last Infusion: 02/27/18 07:04 Dose: Infused Lorazepam (Ativan) 0.5 mg PO ONETIME ONE Stop: 02/26/18 21:01 Last Admin: 02/26/18 21:18 Dose: 0.5 mg Morphine Sulfate (Morphine) Confirm Administered Dose 2 mg .ROUTE .STK-MED ONE Stop: 02/27/18 22:11 Last Admin: 02/27/18 22:15 Dose: 2 mg Morphine Sulfate (Morphine) 2 mg IVPUSH Q4H PRN PRN Reason: pain Last Admin: 02/28/18 16:28 Dose: 2 mg Morphine Sulfate (Morphine) 2 mg IVPUSH ONETIME ONE Stop: 02/28/18 18:44 Last Admin: 02/28/18 19:14 Dose: Not Given Nicotine (Habitrol) Confirm Administered Dose 21 mg .ROUTE .STK-MED ONE Stop: 03/01/18 09:19 Non-Formulary Medication (Doxycycline Hyclate [Doxycycline Hyclate]) 100 mg PO BID [facility] Last Admin: 02/28/18 10:24 Dose: Not Given Non-Formulary Medication (Fluticasone/Salmeterol [Advair 250-50]) 1 puff INH BID [facility] Last Admin: 02/28/18 10:25 Dose: Not Given Senna/Docusate Sodium (Senna Plus) 1 tab PO BEDTIME [facility] Last Admin: 02/28/18 20:10 Dose: 1 tab - Exam General: Alert, Oriented HEENT: Pupils Equal, Pupils Reactive, EOMI, Mucous Membr. Moist/[place] Neck: Supple Lungs: Clear to Auscultation, Normal Respiratory Effort Cardiovascular: Regular Rate, Regular Rhythm GI/Abdominal Exam: Normal Bowel Sounds, Soft, Non-Tender, No Organomegaly, No Distention, No Abnormal Bruit, No Mass, Pelvis Stable Extremities: Normal Inspection Skin: Warm, Intact - Problem List & Annotations (1) Acute renal failure SNOMED Code(s): 78668693 Code(s): N17.9 - ACUTE KIDNEY FAILURE, UNSPECIFIED Status: Acute Current Visit: Yes (2) Gross hematuria SNOMED Code(s): 875404899 Code(s): R31.0 - GROSS HEMATURIA Status: Acute Current Visit: No - Problem List Review Problem List Initiated/Reviewed/Updated: Yes - My Orders Last 24 Hours: My Active Orders 02/28/18 16:00 Metolazone [Zaroxolyn] 5 mg PO BIDDIURETIC 02/28/18 18:47 Morphine 2 mg IVPUSH Q2H PRN 02/28/18 19:42 Resuscitation Status Routine 03/01/18 08:00 Docusate Sodium/Sennosides [Senna Plus] 1 tab PO BID Furosemide [Lasix] 20 mg IVPUSH BID@0800,1700 03/01/18 09:30 Nicotine [Habitrol] 21 mg TRDERM DAILY - Assessment Assessment:: Acute renal failure- improving slightly worsened creatinine today - Plan Plan:: Pt's creat today is 3.3. Pt is feeling better. His electrolytes, magnesium and phosphorus are normal.The creat should improve with time. will continue IV fluids. followup in Am with BMP. 02/27/18 Apparently he has not got IV fluids from midnight as his IV infiltrated. His Sodium today is 146 adn chloride is 114 and his creat is down to 3.1 Will restart IV fluids of 0.45% NS at 100 cc.hr to prevent sodium overload. Also will give him lasix 20mg IV to jump start the kidneys. Will repeat BMP in Am and followup. 02/28/18 Pt's BMP appears better. His creat is 2.9 and BUN is 60 today. He has been having good urine output, but bloody. I have reassured patient and his , that the slow recovery of his renal function could be multifactorial and due to his poor health status. His electorlytes are normal. I have started him on zaroxyln 5mg BID 45 minutes before lasix and lasix 20mg IV BID. Will recheck his BMP in Am. Pt's is a little concerned about use of morphine for pain. She claims that he has had habit of groaning all the time for years now. He groan when he has to sit from lying down position. he groans with any movement. She says he just sits watching TV and groans for no reason. thinks it is habitual. But patient does seem to be in pain and stoic about pain. Hard to say considering his condition. Pt is alert and oriented now. I did ask patient if he is in pain , he says presently he is not, but sometime he does get pain in the lower abdomen. So, I have discussed with both his and patient , about pain management. I will place him on Morphine 2mg IV every 4 hrs as needed. Pt will be asked if he is in pain, if he says he is not, then will hold of his morphine and reassess. Pt and agrees with it. Also on today's visit, I have discussed with both patient and his , about the end of life care in details, considering his deteriorating health condition. Both Patient and his have made decision of not want full code. Patient prefer DNR and DNI. If he stops breathing or heart stops to beat, he does not want any sort of resuscitation. he just want to be left to take the natures course. 03/01/18 Pt is doing better symptomatically, less pain, more alert and active. His creat is riase slightly to 3.1 today. His electrolyte are stable. His magnesium and phosphorus is normal. His UA appears normal other then blood, even urine protein is negative. Urine nitrites is positive because of pyridium. Will get urine culture top maek sure he is not having UTI as his UA showed mild leucs. I will stop the pyridium today, Also Will decrease his lasix to 20mg IV in the morning with zaroxlyn. Continue IV fluids. I did try to go back in time and look through medical records to see when or what was the cause of the ARF. Apparently the last time I see normal Creatinine done here is in December of 2016 when it was 1.16. He has not had any renal function check done here in between. But patient does go to [facility] for most of his health care. His creat was normal until 2016 per [facility] notes. The last note form December of 2017 from [facility] does not have creat and BUn , but patient did under go CT abdomen and pelvis with contrast. the next renal function was done on 02/16/18 which did show elevated creat of 3.3 and later on the creat was rechecked when patient came into emergency room prior to this admission, which was 3.75. This is my assumption of what might have happened. Pt had Ct abdomen with IV contrast in January at [facility] and according to patients he has been weak for some time and not eating and drinking, so he might have had ARF from dehydration , or he had IV contrast, which could have caused nephrotoxin ATN following the CT scan, or he does have chronic anemia and could have had ischemic neprhopathy. Or this could be combination of things. But presently patient is at his base line with respect to his general conditioning, his electrolyte and UA appear stable.
[2018-03-01] MEDS ORDERED: Polyethylene Glycol 3350 Powder 17 GM Packet PO SCH (20:00)
[2018-03-01] MEDS ORDERED: Polyethylene Glycol 3350 Powder 510 GM Bot PO SCH (20:00)
[2018-03-02] MEDS: Sodium Chloride 0.45% 1,000 ML IV SCH ×2 (00:38→10:34)
[2018-03-02] MEDS: Morphine 2 MG/ML Syringe IVPUSH PRN ×4 (02:10→17:24)
[2018-03-02] MEDS ORDERED: Furosemide 20 MG/2 ML VIAL IVPUSH SCH (08:00)
[2018-03-02] MEDS ORDERED: Metolazone 5 MG Tab PO SCH (08:00)
[2018-03-02] MEDS: Folic Acid 1 MG Tab PO SCH (08:22)
[2018-03-02] MEDS: Ferrous Sulfate 325 MG Tab PO SCH (08:22)
[2018-03-02] MEDS: Doxycycline 100 MG Cap PO SCH (08:23)
[2018-03-02] MEDS: Carvedilol 3.125 MG Tab PO SCH (08:23)
[2018-03-02] MEDS: Nicotine 21 MG/24 Hr Patch TRDERM SCH (08:26)
[2018-03-02] MEDS: Oxybutynin 5 MG Tab PO SCH (08:26)
[2018-03-02] MEDS: Formoterol/Mometasone 200-5 MCG 8.8 GM Inhaler IH SCH (10:05)
[2018-03-02 13:21] VITALS: BP 130/35
--- NOTE | 2018-03-02 17:24 | PCM.DCSUM1 ---
Discharge Summary - Hospital Course Free Text/Narrative:: Pt was admitted with diagnosis of acute renal failure,and was started on fluid challenge. His initial electrolyte, magnesium and phosphorus were normal. His creat did improve from 3.75 down to 3.1, at which point his numbers have not made any further change. his creat continue to fluctuate around 3 , but his electrolyte and urine proteins are negative. Pt's normal saline was changed to half normal saline when his Sodium started to be elvateed and ti corrected . Pt 's prerenal cause have been corrected. This could be related at this point to obstruction or combination of ischemic nephropathy form chronic severe anemia, or contrast related nephropathy. the last normal and only creat available is from December 2016. I did contact banquet steward. Dr. Ribeiro at [facility] and discuss patient with him. 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 Presently he is not candidate for urinary catheterisation, or for nephrostomy tube placement per [facility]. So palliative care option was recommended in. Which I do agree considering patient's general condition and the stage of cancer. I have discussed with patient his and pts daughter. At this point his electrolytes are normal and his creat has stabilized around 3, which probably is the new normal for him.He probably is getting into Chronic renal failure. Option of getting Ct abdomen and pelvis with IV contrast , which [facility] wants is not an option, if we use contrast there is going to be more damage to the kidneys. Also the only information CT scan will give is the progression of tumor, but it is not going to change the course of the disease or there is no new medical intervention that is going to be planned around it. [facility] has discussed palliative care with patient and his . So I did have detailed discussion of options available. Pt and his agree with going on palliative care. But they do want to go home if he can get steady on his feet and feeds well. So the plan at this point is to discharge patient from acute care. as he is feeding well will encourage good oral hydration. and have OT and PT start working with patient. Once patient has strength to to some of the ADLs with minimal assistance, will plan on discharge home. Both patient and his agree with the plan. Pt has been discharged and will admit to swing bed status today. HPI Initial Comments: Please see acute care progress notes Brief History: Kinldy see H&P for details. Diagnosis: Stroke: No - Discharge Data Discharge Date: 03/02/18 Discharge Disposition: DC/Tfer W/I Hosp To [place] [address] Condition: Fair - Discharge Diagnosis/Problem(s) (1) Acute renal failure SNOMED Code(s): 85836866 ICD Code: N17.9 - ACUTE KIDNEY FAILURE, UNSPECIFIED Status: Acute Current Visit: Yes (2) Gross hematuria SNOMED Code(s): 539135141 ICD Code: R31.0 - GROSS HEMATURIA Status: Acute Current Visit: No - Patient Instructions Diet: Heart Healthy Diet Fluid Restriction: 1500 mL Activity: As Tolerated Showering/Bathing: January Shower - Discharge Plan Home Medications: Home Meds Carvedilol 3.125 mg PO BID 12/25/14 [History] Fluticasone/Salmeterol [Advair 250-50] 1 puff INH BID 12/25/14 [History] Nitroglycerin [Nitrostat] 0.4 mg SL ASDIRECTED PRN 02/16/16 [History] Albuterol [Ventolin HFA] 2 puff INH 5X PRN 03/14/17 [History] Ferrous Sulfate 325 mg PO BID 03/14/17 [History] Folic Acid 1 mg PO DAILY 03/14/17 [History] Oxybutynin Chloride 5 mg PO BID 03/14/17 [History] Doxycycline Hyclate 100 mg PO BID 08/24/17 [History] Doxycycline [Vibramycin] 100 mg PO BID cap 03/02/18 [Rx] Metolazone [Zaroxolyn] 5 mg PO DAILY tablet 03/02/18 [Rx] Morphine 2 mg IVPUSH Q2H PRN syringe 03/02/18 [Rx] Nicotine [Habitrol] 21 mg TRDERM DAILY patch 03/02/18 [Rx] Polyethylene Glycol 3350 [MiraLAX] 17 gm PO BEDTIME packet 03/02/18 [Rx] Patient Handouts: Acute Kidney Injury, Adult, Chronic Kidney Disease, Adult, [id number] Forms: ED Department Discharge Referrals: PCP,None [Primary Care Provider] - - Discharge Summary/Plan Comment DC Time >30 min.: Yes Discharge Summary/Plan Comment: Use this for Swing bed admission H&P - General Info Date of Service: 03/02/18 Functional Status: Reports: Pain Controlled, Tolerating Diet, Urinating - Review of Systems General: Reports: Weakness. Denies: Fever, Fatigue HEENT: Denies: Sinus Congestion, Rhinitis Pulmonary: Denies: Shortness of Breath, Cough, Sputum, Hemoptysis Cardiovascular: Denies: Chest Pain, Lightheadedness Gastrointestinal: Reports: Abdominal Pain (suprapubic). Denies: Nausea, Vomiting Genitourinary: Reports: Frequency, Hematuria. Denies: Dysuria Musculoskeletal: Denies: Joint Pain, Joint Swelling Skin: Denies: Bruising, Pruritis, Rash Neurological: Reports: Weakness. Denies: Headache, Numbness, Tingling - Patient Data Vitals - Most Recent: Last Vital Signs Temp 98.7 F 03/02/18 12:00 Pulse 58 L 03/02/18 12:00 Resp 12 03/02/18 12:00 BP 130/35 L 03/02/18 12:00 Pulse Ox 100 03/02/18 12:00 Weight - Most Recent: 56.019 kg I&O - Last 24 hours: Intake & Output 03/02/18 03/02/18 03/02/18 06:59 14:59 22:59 Intake Total 1200 Balance 1200 Lab Results - Last 24 hrs: Laboratory Results - last 24 hr 03/02/18 Range/Units 07:25 Sodium 138 (136-145) mmol/L Potassium 3.9 (3.5-5.1) mmol/L Chloride 104 (98-107) mmol/L Carbon Dioxide 22.8 (21.0-32.0) mmol/L Anion Gap 15.1 H (5.0-15.0) mmol/L BUN 60 H* (8-26) mg/dL Creatinine 3.05 H* (0.70-1.30) mg/dL Est Cr Clr Drug Dosing 16.69 mL/min Estimated GFR (MDRD) 20 L (>60) MLS/MIN BUN/Creatinine Ratio 19.7 (6-25) Glucose 96 (74-100) mg/dL Calcium 8.9 (8.5-10.1) mg/dL Med Orders - Current: Current Medications Albuterol (Ventolin Hfa) 0 gm INH 5XDAY PRN PRN Reason: Shortness of Breath Carvedilol (Coreg) 3.125 mg PO BID [facility] Last Admin: 03/02/18 08:23 Dose: 3.125 mg Doxycycline Hyclate (Vibramycin) 100 mg PO BID [facility] Last Admin: 03/02/18 08:23 Dose: 100 mg Ferrous Sulfate (Ferrous Sulfate) 325 mg PO BID [facility] Last Admin: 03/02/18 08:22 Dose: 325 mg Folic Acid (Folic Acid) 1 mg PO DAILY [facility] Last Admin: 03/02/18 08:22 Dose: 1 mg Furosemide (Lasix) 20 mg IVPUSH DAILY [facility] Last Admin: 03/02/18 08:28 Dose: 20 mg Sodium Chloride (Normal Saline) 500 mls @ 999 mls/hr IV .BOLUS [facility] Last Admin: 02/25/18 15:20 Dose: 999 mls/hr Sodium Chloride (Sodium Chloride 0.45%) 1,000 mls @ 100 mls/hr IV ASDIRECTED [facility] Last Admin: 03/02/18 10:34 Dose: 100 mls/hr Metolazone (Zaroxolyn) 5 mg PO DAILY [facility] Last Admin: 03/02/18 08:22 Dose: 5 mg Mometasone Furoate/Formoterol Fumar (Dulera 200-5 Mcg) 2 puff IH BID [facility] Last Admin: 03/02/18 10:05 Dose: 2 puff Morphine Sulfate (Morphine) 2 mg IVPUSH Q2H PRN PRN Reason: pain Last Admin: 03/02/18 08:17 Dose: 2 mg Nicotine (Habitrol) 21 mg TRDERM DAILY [facility] Last Admin: 03/02/18 08:26 Dose: 21 mg Nitroglycerin (Nitrostat) 0.4 mg SL ASDIRECTED PRN PRN Reason: Pain Oxybutynin Chloride (Oxybutynin) 5 mg PO BID [facility] Last Admin: 03/02/18 08:26 Dose: 5 mg Polyethylene Glycol (Miralax) 17 gm PO BEDTIME [facility] Last Admin: 03/01/18 19:30 Dose: 17 gm Senna/Docusate Sodium (Senna Plus) 1 tab PO BID [facility] Last Admin: 03/02/18 08:28 Dose: 1 tab Sodium Chloride (Saline Flush) 10 ml FLUSH ASDIRECTED PRN PRN Reason: Keep Vein Open Last Admin: 03/02/18 02:15 Dose: 10 ml Discontinued Medications Hydrocodone Bitart/Acetaminophen ([place] 325-10 Mg) 1 tab PO Q6H PRN PRN Reason: Pain Last Admin: 02/27/18 17:57 Dose: 1 tab Hydrocodone Bitart/Acetaminophen ([place] 325-10 Mg) 1 tab PO Q6H [facility] Doxycycline Hyclate (Vibramycin) Confirm Administered Dose 100 mg .ROUTE .STK- MED ONE Stop: 02/27/18 09:15 Last Admin: 02/27/18 09:35 Dose: Not Given Furosemide (Lasix) 20 mg IVPUSH ONETIME ONE Stop: 02/27/18 09:23 Last Admin: 02/27/18 10:36 Dose: 20 mg Furosemide (Lasix) Confirm Administered Dose 20 mg .ROUTE .STK-MED ONE Stop: 02/27/18 09:37 Last Admin: 02/27/18 10:39 Dose: Not Given Furosemide (Lasix) 20 mg IVPUSH BID [facility] Last Admin: 02/28/18 17:45 Dose: 20 mg Furosemide (Lasix) Confirm Administered Dose 20 mg .ROUTE .STK-MED ONE Stop: 02/28/18 10:11 Last Admin: 02/28/18 10:52 Dose: Not Given Furosemide (Lasix) Confirm Administered Dose 20 mg .ROUTE .STK-MED ONE Stop: 02/28/18 17:46 Last Admin: 02/28/18 18:18 Dose: Not Given Furosemide (Lasix) 20 mg IVPUSH BID@0800,1700 [facility] Last Admin: 03/01/18 07:35 Dose: 20 mg Sodium Chloride (Normal Saline) 1,000 mls @ 100 mls/hr IV ASDIRECTED [facility] Last Infusion: 02/27/18 07:04 Dose: Infused Lorazepam (Ativan) 0.5 mg PO ONETIME ONE Stop: 02/26/18 21:01 Last Admin: 02/26/18 21:18 Dose: 0.5 mg Metolazone (Zaroxolyn) 5 mg PO BIDDIURETIC [facility] Last Admin: 03/01/18 08:06 Dose: 5 mg Morphine Sulfate (Morphine) Confirm Administered Dose 2 mg .ROUTE .STK-MED ONE Stop: 02/27/18 22:11 Last Admin: 02/27/18 22:15 Dose: 2 mg Morphine Sulfate (Morphine) 2 mg IVPUSH Q4H PRN PRN Reason: pain Last Admin: 02/28/18 16:28 Dose: 2 mg Morphine Sulfate (Morphine) 2 mg IVPUSH ONETIME ONE Stop: 02/28/18 18:44 Last Admin: 02/28/18 19:14 Dose: Not Given Nicotine (Habitrol) Confirm Administered Dose 21 mg .ROUTE .STK-MED ONE Stop: 03/01/18 09:19 Last Admin: 03/01/18 11:12 Dose: Not Given Non-Formulary Medication (Doxycycline Hyclate [Doxycycline Hyclate]) 100 mg PO BID [facility] Last Admin: 02/28/18 10:24 Dose: Not Given Non-Formulary Medication (Fluticasone/Salmeterol [Advair 250-50]) 1 puff INH BID [facility] Last Admin: 02/28/18 10:25 Dose: Not Given Phenazopyridine HCl (Pyridium) 100 mg PO BID [facility] Last Admin: 03/01/18 08:05 Dose: 100 mg Senna/Docusate Sodium (Senna Plus) 1 tab PO BEDTIME [facility] Last Admin: 02/28/18 20:10 Dose: 1 tab - Exam General: Reports: Alert, Oriented HEENT: Reports: Pupils Equal, Pupils Reactive, EOMI, Mucous Membr. Moist/[place] Neck: Reports: Supple Lungs: Reports: Clear to Auscultation, Normal Respiratory Effort Cardiovascular: Reports: Regular Rate, Regular Rhythm GI/Abdominal Exam: Normal Bowel Sounds, Soft, Non-Tender, No Organomegaly, No Distention, No Abnormal Bruit, No Mass, Pelvis Stable Extremities: Normal Inspection, Normal Range of Motion, Non-Tender, No Pedal Edema, Normal Capillary Refill Skin: Reports: Warm, Dry, Intact Neurological: Reports: No New Focal Deficit
[2018-03-02] MEDS ORDERED: Tuberculin, PPD 5 Units/0.1 ML 1 ML MDV IDERM ONE (17:29)
== END 2018-03-02 17:15 | disposition swing bed (61) | DRG 683 ==
LOC: LB.ED 13:11 → LB.MS 15:25
PROVIDERS: ADMIT Family Medicine; ATTEND Family Medicine
DX: N17.9 Acute kidney failure, unspecified (principal); C79.19 Secondary malignant neoplasm of other urinary organs; I12.9 Hypertensive chronic kidney disease with stage 1 through stage 4 chronic kidney disease, or unspecified chronic kidney disease; N18.9 Chronic kidney disease, unspecified; Z66 Do not resuscitate; Z51.5 Encounter for palliative care; J44.9 Chronic obstructive pulmonary disease, unspecified; C67.9 Malignant neoplasm of bladder, unspecified; R31.0 Gross hematuria; I25.10 Atherosclerotic heart disease of native coronary artery without angina pectoris; Z88.8 Allergy status to other drugs, medicaments and biological substances; Z79.899 Other long term (current) drug therapy; M19.90 Unspecified osteoarthritis, unspecified site; Z95.1 Presence of aortocoronary bypass graft; Z95.5 Presence of coronary angioplasty implant and graft
CPT/HCPCS: 36415; 80048; 80053; 81001; 83735; 84100; 85025; 87086; 99285; A9270-GY; J1940; J2270; J3490; J7030; J7040; J7050

== ENCOUNTER 2018-03-02 09:23 | Inpatient (IN) | payer MEDICARE, BC ==
[2018-03-02] MEDS ORDERED: Sodium Chloride 0.9% 10 ML Syringe FLUSH PRN (20:03)
[2018-03-02] MEDS ORDERED: Tuberculin, PPD 5 Units/0.1 ML 1 ML MDV IDERM ONE (20:03)
[2018-03-02] MEDS ORDERED: Nitroglycerin 0.4 MG Tab.SL SL PRN (20:09)
[2018-03-02] MEDS ORDERED: Morphine 2 MG/ML Syringe IVPUSH PRN (20:09)
[2018-03-02] MEDS ORDERED: Albuterol 8 GM Inhaler INH PRN (20:09)
[2018-03-02] MEDS ORDERED: FLUTICASONE INH SCH (20:15)
[2018-03-02] MEDS ORDERED: SALMETEROL INH SCH (20:15)
[2018-03-02] MEDS: Formoterol/Mometasone 200-5 MCG 8.8 GM Inhaler IH SCH ×4 (20:34→20:56)
[2018-03-02] MEDS: Polyethylene Glycol 3350 Powder 17 GM Packet PO SCH (20:49)
[2018-03-02] MEDS: Acetaminophen/HYDROcodone 325-10 MG Tab PO SCH (20:49)
[2018-03-02] MEDS: Carvedilol 3.125 MG Tab PO SCH (20:51)
[2018-03-02] MEDS: Oxybutynin 5 MG Tab PO SCH (20:54)
[2018-03-02] MEDS: Doxycycline 100 MG Cap PO SCH (20:54)
[2018-03-02] MEDS: Ferrous Sulfate 325 MG Tab PO SCH (20:54)
[2018-03-02] MEDS: Morphine 2 MG/ML Syringe IVPUSH PRN (21:13)
[2018-03-02] MEDS: Sodium Chloride 0.45% 1,000 ML IV SCH (21:26)
[2018-03-03] MEDS: Acetaminophen/HYDROcodone 325-10 MG Tab PO SCH ×4 (02:00→21:24)
[2018-03-03] MEDS: Nicotine 21 MG/24 Hr Patch TRDERM SCH (07:40)
[2018-03-03] MEDS: Oxybutynin 5 MG Tab PO SCH ×2 (07:42→19:51)
[2018-03-03] MEDS: Doxycycline 100 MG Cap PO SCH ×2 (07:42→19:50)
[2018-03-03] MEDS: Metolazone 5 MG Tab PO SCH (07:44)
[2018-03-03] MEDS: Folic Acid 1 MG Tab PO SCH ×2 (07:44→08:30)
[2018-03-03] MEDS: Carvedilol 3.125 MG Tab PO SCH ×2 (07:44→19:50)
[2018-03-03] MEDS: Ferrous Sulfate 325 MG Tab PO SCH ×3 (07:44→19:48)
[2018-03-03] MEDS: Sodium Chloride 0.45% 1,000 ML IV SCH ×2 (07:46→17:15)
[2018-03-03] MEDS: Furosemide 20 MG/2 ML VIAL IVPUSH SCH (07:47)
[2018-03-03] MEDS: Formoterol/Mometasone 200-5 MCG 8.8 GM Inhaler IH SCH ×2 (08:30→21:27)
[2018-03-03] MEDS ORDERED: Bisacodyl 10 MG Supp RECTAL ONE (18:18)
[2018-03-03] MEDS ORDERED: Bisacodyl 10 MG Supp ONE (18:21)
[2018-03-03] MEDS: Polyethylene Glycol 3350 Powder 17 GM Packet PO SCH (19:51)
[2018-03-03] MEDS ORDERED: Formoterol/Mometasone 200-5 MCG 8.8 GM Inhaler IH SCH (20:00)
[2018-03-04] MEDS: Acetaminophen/HYDROcodone 325-10 MG Tab PO SCH ×4 (04:10→20:39)
[2018-03-04] MEDS: Ferrous Sulfate 325 MG Tab PO SCH ×2 (08:38→20:39)
[2018-03-04] MEDS: Doxycycline 100 MG Cap PO SCH ×2 (08:38→20:39)
[2018-03-04] MEDS: Formoterol/Mometasone 200-5 MCG 8.8 GM Inhaler IH SCH ×2 (08:39→20:38)
[2018-03-04] MEDS: Folic Acid 1 MG Tab PO SCH (08:39)
[2018-03-04] MEDS: Metolazone 5 MG Tab PO SCH (08:39)
[2018-03-04] MEDS: Oxybutynin 5 MG Tab PO SCH ×2 (08:39→20:39)
[2018-03-04] MEDS: Carvedilol 3.125 MG Tab PO SCH ×2 (08:40→20:45)
[2018-03-04] MEDS: Furosemide 20 MG/2 ML VIAL IVPUSH SCH (08:40)
[2018-03-04] MEDS: Nicotine 21 MG/24 Hr Patch TRDERM SCH (08:40)
[2018-03-04] MEDS: Morphine 2 MG/ML Syringe IVPUSH PRN (12:20)
[2018-03-04] MEDS: Polyethylene Glycol 3350 Powder 17 GM Packet PO SCH (20:41)
[2018-03-05] MEDS: Acetaminophen/HYDROcodone 325-10 MG Tab PO SCH ×4 (04:15→20:40)
[2018-03-05] MEDS ORDERED: Acetaminophen/HYDROcodone 325-10 MG Tab ONE (07:23)
[2018-03-05] MEDS: Folic Acid 1 MG Tab PO SCH (09:43)
[2018-03-05] MEDS: Doxycycline 100 MG Cap PO SCH ×2 (09:43→20:39)
[2018-03-05] MEDS: Ferrous Sulfate 325 MG Tab PO SCH ×2 (09:44→20:39)
[2018-03-05] MEDS: Oxybutynin 5 MG Tab PO SCH ×2 (09:44→20:39)
[2018-03-05] MEDS: Carvedilol 3.125 MG Tab PO SCH ×2 (09:46→20:39)
[2018-03-05] MEDS: Formoterol/Mometasone 200-5 MCG 8.8 GM Inhaler IH SCH (09:50)
[2018-03-05] MEDS: Metolazone 5 MG Tab PO SCH (09:54)
[2018-03-05] MEDS ORDERED: Furosemide 20 MG Tab ONE (09:59)
[2018-03-05] MEDS: Furosemide 20 MG Tab PO SCH (10:11)
[2018-03-05] MEDS: Nicotine 21 MG/24 Hr Patch TRDERM SCH (10:11)
[2018-03-05] MEDS: Furosemide 20 MG/2 ML VIAL IVPUSH SCH (10:33)
[2018-03-05] MEDS: Polyethylene Glycol 3350 Powder 17 GM Packet PO SCH (20:42)
[2018-03-06] MEDS: Formoterol/Mometasone 200-5 MCG 8.8 GM Inhaler IH SCH ×3 (04:08→19:37)
[2018-03-06] MEDS: Acetaminophen/HYDROcodone 325-10 MG Tab PO SCH ×4 (04:09→21:14)
[2018-03-06] MEDS: Metolazone 5 MG Tab PO SCH (08:01)
[2018-03-06] MEDS: Carvedilol 3.125 MG Tab PO SCH ×2 (08:02→19:35)
[2018-03-06] MEDS: Oxybutynin 5 MG Tab PO SCH ×2 (08:02→19:35)
[2018-03-06] MEDS: Folic Acid 1 MG Tab PO SCH (08:02)
[2018-03-06] MEDS: Doxycycline 100 MG Cap PO SCH ×2 (08:02→19:36)
[2018-03-06] MEDS: Furosemide 20 MG Tab PO SCH (08:02)
[2018-03-06] MEDS: Ferrous Sulfate 325 MG Tab PO SCH ×2 (08:02→19:35)
[2018-03-06] MEDS: Nicotine 21 MG/24 Hr Patch TRDERM SCH (08:02)
[2018-03-06] MEDS: Morphine 2 MG/ML Syringe SUBCUT PRN (12:27)
[2018-03-06] MEDS: Polyethylene Glycol 3350 Powder 17 GM Packet PO SCH (19:37)
[2018-03-07] MEDS: Acetaminophen/HYDROcodone 325-10 MG Tab PO SCH ×4 (02:45→21:21)
[2018-03-07] MEDS: Nicotine 21 MG/24 Hr Patch TRDERM SCH (08:33)
[2018-03-07] MEDS: Formoterol/Mometasone 200-5 MCG 8.8 GM Inhaler IH SCH ×2 (08:34→20:45)
[2018-03-07] MEDS: Metolazone 5 MG Tab PO SCH (08:35)
[2018-03-07] MEDS: Folic Acid 1 MG Tab PO SCH (08:35)
[2018-03-07] MEDS: Ferrous Sulfate 325 MG Tab PO SCH ×2 (08:35→20:45)
[2018-03-07] MEDS: Doxycycline 100 MG Cap PO SCH ×2 (08:35→20:45)
[2018-03-07] MEDS: Oxybutynin 5 MG Tab PO SCH ×2 (08:36→20:45)
[2018-03-07] MEDS: Carvedilol 3.125 MG Tab PO SCH ×2 (08:36→21:27)
[2018-03-07] MEDS: Furosemide 20 MG Tab PO SCH (08:37)
[2018-03-07] MEDS: Morphine 2 MG/ML Syringe SUBCUT PRN (08:55)
--- NOTE | 2018-03-07 16:05 | PCM.PN ---
- General Info Date of Service: 03/07/18 Functional Status: Reports: Pain Controlled, Tolerating Diet - Review of Systems General: Reports: Weakness, Fatigue HEENT: Reports: No Symptoms Pulmonary: Reports: No Symptoms Cardiovascular: Reports: No Symptoms Gastrointestinal: Reports: No Symptoms Genitourinary: Reports: No Symptoms Musculoskeletal: Reports: Joint Pain Skin: Reports: No Symptoms Neurological: Reports: Confusion - Patient Data Vitals - Most Recent: Last Vital Signs Temp 36.4 C 03/07/18 08:32 Pulse 62 03/07/18 08:36 Resp 18 03/07/18 08:32 BP 118/61 03/07/18 08:36 Pulse Ox 94 L 03/07/18 08:32 Weight - Most Recent: 53.977 kg I&O - Last 24 Hours: Intake & Output 03/07/18 03/07/18 03/07/18 06:59 14:59 22:59 Intake Total 180 Balance 180 Med Orders - Current: Current Medications Hydrocodone Bitart/Acetaminophen ([place] 325-10 Mg) 1 tab PO Q6H [facility] Last Admin: 03/07/18 13:37 Dose: 1 tab Albuterol (Ventolin Hfa) 0 gm INH 5XDAY PRN PRN Reason: Shortness of Breath Carvedilol (Coreg) 3.125 mg PO BID [facility] Last Admin: 03/07/18 08:36 Dose: 3.125 mg Doxycycline Hyclate (Vibramycin) 100 mg PO BID [facility] Last Admin: 03/07/18 08:35 Dose: 100 mg Ferrous Sulfate (Ferrous Sulfate) 325 mg PO BID [facility] Last Admin: 03/07/18 08:35 Dose: 325 mg Folic Acid (Folic Acid) 1 mg PO DAILY [facility] Last Admin: 03/07/18 08:35 Dose: 1 mg Furosemide (Lasix) 20 mg PO DAILY [facility] Last Admin: 03/07/18 08:37 Dose: 20 mg Dextrose/Lactated Ringer's (Dextrose 5%-Lactated Ringers) 1,000 mls @ 100 mls/ hr IV ASDIRECTED [facility] Stop: 03/09/18 02:14 Metolazone (Zaroxolyn) 5 mg PO DAILY [facility] Last Admin: 03/07/18 08:35 Dose: 5 mg Mometasone Furoate/Formoterol Fumar (Dulera 200-5 Mcg) 2 puff IH BID [facility] Last Admin: 03/07/18 08:34 Dose: 2 puff Morphine Sulfate (Morphine) 2 mg SUBCUT Q4H PRN PRN Reason: MODERATE Pain Last Admin: 03/07/18 08:55 Dose: 2 mg Nicotine (Habitrol) 21 mg TRDERM DAILY [facility] Last Admin: 03/07/18 08:33 Dose: 21 mg Nitroglycerin (Nitrostat) 0.4 mg SL ASDIRECTED PRN PRN Reason: Pain Oxybutynin Chloride (Oxybutynin) 5 mg PO BID [facility] Last Admin: 03/07/18 08:36 Dose: 5 mg Polyethylene Glycol (Miralax) 17 gm PO BEDTIME [facility] Last Admin: 03/06/18 19:37 Dose: 17 gm Senna/Docusate Sodium (Senna Plus) 1 tab PO BID [facility] Last Admin: 03/07/18 08:36 Dose: 1 tab Discontinued Medications Hydrocodone Bitart/Acetaminophen ([place] 325-10 Mg) Confirm Administered Dose 1 tab .ROUTE .STK-MED ONE Stop: 03/05/18 07:24 Last Admin: 03/05/18 10:13 Dose: Not Given Bisacodyl (Dulcolax) 10 mg RECTAL ONETIME ONE Stop: 03/03/18 18:19 Last Admin: 03/03/18 21:35 Dose: 10 mg Bisacodyl (Dulcolax) Confirm Administered Dose 10 mg .ROUTE .STK-MED ONE Stop: 03/03/18 18:22 Last Admin: 03/03/18 20:04 Dose: Not Given Furosemide (Lasix) 20 mg IVPUSH DAILY [facility] Last Admin: 03/05/18 10:33 Dose: Not Given Furosemide (Lasix) Confirm Administered Dose 20 mg .ROUTE .STK-MED ONE Stop: 03/05/18 10:00 Last Admin: 03/05/18 10:12 Dose: Not Given Sodium Chloride (Sodium Chloride 0.45%) 1,000 mls @ 100 mls/hr IV ASDIRECTED [facility] Last Admin: 03/03/18 17:15 Dose: 100 mls/hr Morphine Sulfate (Morphine) 2 mg IVPUSH Q2H PRN PRN Reason: Pain Last Admin: 03/04/18 12:20 Dose: 2 mg Morphine Sulfate (Morphine) 2 mg IVPUSH Q2H PRN PRN Reason: pain Sodium Chloride (Saline Flush) 10 ml FLUSH ASDIRECTED PRN PRN Reason: Other Tuberculin PPD (Aplisol) 5 unit IDERM ONETIME ONE Stop: 03/02/18 20:04 - Exam General: Cooperative. No: Oriented HEENT: Pupils Reactive, EOMI Neck: Supple Lungs: Normal Respiratory Effort, Rhonchi Cardiovascular: Regular Rate, Regular Rhythm GI/Abdominal Exam: Normal Bowel Sounds Back Exam: Paraspinal Tenderness Extremities: Leg Pain Peripheral Pulses: 2+: Dorsalis Pedis (L), Dorsalis Pedis (R) Skin: Warm, Dry, Intact - Problem List & Annotations (1) Acute renal failure SNOMED Code(s): 96975064 Code(s): N17.9 - ACUTE KIDNEY FAILURE, UNSPECIFIED Status: Chronic Priority: High Current Visit: Yes (2) Anemia due to blood loss, chronic SNOMED Code(s): 526192771 Code(s): D50.0 - IRON DEFICIENCY ANEMIA SECONDARY TO BLOOD LOSS (CHRONIC) Status: Chronic Priority: Medium Current Visit: Yes (3) Dizziness SNOMED Code(s): 031937424, 946779346 Code(s): R42 - DIZZINESS AND GIDDINESS Status: Chronic Priority: Medium Current Visit: Yes Onset Date: 02/16/16 Annotation/Comment:: 02/16/16 - Dizziness due to hypotension (4) Hypotension SNOMED Code(s): 57977081 Code(s): I95.9 - HYPOTENSION, UNSPECIFIED Status: Chronic Priority: Medium Current Visit: Yes Onset Date: 02/16/16 Qualifiers: Hypotension type: other hypotension type Qualified Code(s): I95.89 - Other hypotension Annotation/Comment:: 02/16/16 - Dizziness due to hypotension (5) Palliative care patient SNOMED Code(s): 623486242 Code(s): Z51.5 - ENCOUNTER FOR PALLIATIVE CARE Status: Chronic Priority: High Current Visit: Yes - Problem List Review Problem List Initiated/Reviewed/Updated: Yes - My Orders Last 24 Hours: My Active Orders 03/06/18 Dinner Mechanical Soft Diet [DIET] 03/07/18 16:15 Dextrose 5%-Lactated Ringers @ 100 MLS/HR(1,000ml) Dextrose 5%-Lactated Ringers 1,000 ml IV ASDIRECTED - Plan Plan:: We will continue current management and comfort cares. Patient is very weak and unable to get out of bed. His is present and making his medical decisions. He will continue palliative care. We will continue with pain management. Patient will be monitored and continue current diet and cares.
[2018-03-07] MEDS: Dextrose 5%-Lactated Ringers 1,000 ML IV SCH (18:33)
[2018-03-07] MEDS: Polyethylene Glycol 3350 Powder 17 GM Packet PO SCH (21:27)
[2018-03-08] MEDS: Dextrose 5%-Lactated Ringers 1,000 ML IV SCH ×2 (05:41→05:42)
[2018-03-08] MEDS: Acetaminophen/HYDROcodone 325-10 MG Tab PO SCH ×5 (06:06→20:03)
[2018-03-08] MEDS: Morphine 2 MG/ML Syringe SUBCUT PRN ×2 (06:07→14:20)
[2018-03-08] MEDS: Metolazone 5 MG Tab PO SCH (07:27)
[2018-03-08] MEDS: Ferrous Sulfate 325 MG Tab PO SCH ×2 (07:27→20:04)
[2018-03-08] MEDS: Doxycycline 100 MG Cap PO SCH ×2 (07:27→20:04)
[2018-03-08] MEDS: Furosemide 20 MG Tab PO SCH (07:28)
[2018-03-08] MEDS: Carvedilol 3.125 MG Tab PO SCH ×2 (07:28→20:04)
[2018-03-08] MEDS: Folic Acid 1 MG Tab PO SCH (07:28)
[2018-03-08] MEDS: Oxybutynin 5 MG Tab PO SCH ×2 (07:28→20:04)
[2018-03-08] MEDS: Nicotine 21 MG/24 Hr Patch TRDERM SCH (07:29)
[2018-03-08] MEDS: Formoterol/Mometasone 200-5 MCG 8.8 GM Inhaler IH SCH ×2 (10:17→20:04)
[2018-03-08] MEDS ORDERED: Sodium Chloride 0.9% 1,000 ML IV SCH (15:30)
[2018-03-08] MEDS: fentaNYL 12 MCG/HR Transdermal Patch TRDERM SCH (16:03)
[2018-03-08] MEDS: Polyethylene Glycol 3350 Powder 17 GM Packet PO SCH (20:04)
[2018-03-09] MEDS: Acetaminophen/HYDROcodone 325-10 MG Tab PO SCH ×4 (02:51→21:06)
[2018-03-09] MEDS: Ferrous Sulfate 325 MG Tab PO SCH ×2 (10:52→21:06)
[2018-03-09] MEDS: Carvedilol 3.125 MG Tab PO SCH ×2 (10:52→21:06)
[2018-03-09] MEDS: Formoterol/Mometasone 200-5 MCG 8.8 GM Inhaler IH SCH ×2 (10:52→21:06)
[2018-03-09] MEDS: Folic Acid 1 MG Tab PO SCH (10:52)
[2018-03-09] MEDS: Nicotine 21 MG/24 Hr Patch TRDERM SCH (10:53)
[2018-03-09] MEDS: Furosemide 20 MG Tab PO SCH (10:53)
[2018-03-09] MEDS: Metolazone 5 MG Tab PO SCH (10:54)
[2018-03-09] MEDS: Doxycycline 100 MG Cap PO SCH ×2 (10:54→21:06)
[2018-03-09] MEDS: Oxybutynin 5 MG Tab PO SCH ×2 (10:54→21:06)
[2018-03-09] MEDS: Morphine 2 MG/ML Syringe IVPUSH PRN ×2 (16:40→20:48)
[2018-03-09] MEDS: LORazepam 2 MG/ML SDV IVPUSH PRN (16:41)
[2018-03-09] MEDS: Polyethylene Glycol 3350 Powder 17 GM Packet PO SCH (21:06)
[2018-03-10] MEDS: Morphine 2 MG/ML Syringe IVPUSH PRN ×5 (01:54→19:29)
[2018-03-10] MEDS: Acetaminophen/HYDROcodone 325-10 MG Tab PO SCH ×4 (02:15→20:56)
[2018-03-10] MEDS: Nicotine 21 MG/24 Hr Patch TRDERM SCH (08:10)
[2018-03-10] MEDS: Formoterol/Mometasone 200-5 MCG 8.8 GM Inhaler IH SCH ×2 (08:30→21:01)
[2018-03-10] MEDS: Folic Acid 1 MG Tab PO SCH (08:30)
[2018-03-10] MEDS: Furosemide 20 MG Tab PO SCH (08:30)
[2018-03-10] MEDS: Metolazone 5 MG Tab PO SCH (08:30)
[2018-03-10] MEDS: Doxycycline 100 MG Cap PO SCH ×2 (08:30→20:55)
[2018-03-10] MEDS: Carvedilol 3.125 MG Tab PO SCH ×2 (08:30→20:56)
[2018-03-10] MEDS: Ferrous Sulfate 325 MG Tab PO SCH ×2 (08:30→20:56)
[2018-03-10] MEDS: Oxybutynin 5 MG Tab PO SCH ×2 (08:30→20:56)
[2018-03-10] MEDS: Lactated Ringers 1,000 ML IV SCH (13:06)
[2018-03-10] MEDS: Polyethylene Glycol 3350 Powder 17 GM Packet PO SCH (21:01)
[2018-03-11] MEDS: LORazepam 2 MG/ML SDV IVPUSH PRN (01:18)
[2018-03-11] MEDS: Lactated Ringers 1,000 ML IV SCH ×2 (02:21→14:52)
[2018-03-11] MEDS: Acetaminophen/HYDROcodone 325-10 MG Tab PO SCH ×4 (03:13→22:11)
[2018-03-11] MEDS: Furosemide 20 MG Tab PO SCH (07:49)
[2018-03-11] MEDS: Metolazone 5 MG Tab PO SCH (07:50)
[2018-03-11] MEDS: Oxybutynin 5 MG Tab PO SCH ×2 (07:50→20:19)
[2018-03-11] MEDS: Ferrous Sulfate 325 MG Tab PO SCH ×2 (07:50→20:18)
[2018-03-11] MEDS: Carvedilol 3.125 MG Tab PO SCH ×2 (07:51→20:18)
[2018-03-11] MEDS: Folic Acid 1 MG Tab PO SCH (07:51)
[2018-03-11] MEDS: Doxycycline 100 MG Cap PO SCH ×2 (07:51→20:19)
[2018-03-11] MEDS: Formoterol/Mometasone 200-5 MCG 8.8 GM Inhaler IH SCH ×2 (08:20→20:18)
[2018-03-11] MEDS: Morphine 2 MG/ML Syringe IVPUSH PRN (13:09)
[2018-03-11] MEDS: Nicotine 21 MG/24 Hr Patch TRDERM SCH (14:07)
[2018-03-11] MEDS: fentaNYL 12 MCG/HR Transdermal Patch TRDERM SCH (16:00)
[2018-03-11] MEDS: Polyethylene Glycol 3350 Powder 17 GM Packet PO SCH (20:19)
[2018-03-12] MEDS: LORazepam 2 MG/ML SDV IVPUSH PRN ×2 (00:04→09:21)
[2018-03-12] MEDS: Acetaminophen/HYDROcodone 325-10 MG Tab PO SCH ×5 (03:18→20:47)
[2018-03-12] MEDS: Lactated Ringers 1,000 ML IV SCH ×2 (03:41→16:51)
[2018-03-12] MEDS: Furosemide 20 MG Tab PO SCH (07:59)
[2018-03-12] MEDS: Nicotine 21 MG/24 Hr Patch TRDERM SCH (07:59)
[2018-03-12] MEDS: Folic Acid 1 MG Tab PO SCH (08:01)
[2018-03-12] MEDS: Carvedilol 3.125 MG Tab PO SCH ×2 (08:01→20:40)
[2018-03-12] MEDS: Metolazone 5 MG Tab PO SCH (08:02)
[2018-03-12] MEDS: Oxybutynin 5 MG Tab PO SCH ×2 (08:03→20:40)
[2018-03-12] MEDS: Ferrous Sulfate 325 MG Tab PO SCH ×2 (08:03→20:40)
[2018-03-12] MEDS: Formoterol/Mometasone 200-5 MCG 8.8 GM Inhaler IH SCH ×2 (08:04→21:26)
[2018-03-12] MEDS: Doxycycline 100 MG Cap PO SCH ×2 (08:05→20:40)
[2018-03-12] MEDS ORDERED: Acetaminophen/HYDROcodone 325-10 MG Tab ONE (17:01)
[2018-03-12] MEDS: Polyethylene Glycol 3350 Powder 17 GM Packet PO SCH (20:42)
[2018-03-13] MEDS: Acetaminophen/HYDROcodone 325-10 MG Tab PO SCH ×2 (03:27→12:33)
[2018-03-13] MEDS: Morphine 2 MG/ML Syringe IVPUSH PRN (05:15)
[2018-03-13] MEDS: Lactated Ringers 1,000 ML IV SCH ×2 (06:11→19:45)
[2018-03-13] MEDS: Nicotine 21 MG/24 Hr Patch TRDERM SCH (08:00)
[2018-03-13] MEDS ORDERED: fentaNYL 25 MCG/HR Transdermal Patch TRDERM SCH (09:45)
[2018-03-13] MEDS: fentaNYL 25 MCG/HR Transdermal Patch TRDERM SCH (12:15)
[2018-03-13] MEDS: Carvedilol 3.125 MG Tab PO SCH ×2 (12:33→20:00)
[2018-03-13] MEDS: Formoterol/Mometasone 200-5 MCG 8.8 GM Inhaler IH SCH ×2 (12:34→20:51)
[2018-03-13] MEDS: Doxycycline 100 MG Cap PO SCH (12:34)
[2018-03-13] MEDS: Ferrous Sulfate 325 MG Tab PO SCH ×2 (12:35→20:51)
[2018-03-13] MEDS: Folic Acid 1 MG Tab PO SCH (12:35)
[2018-03-13] MEDS: Furosemide 20 MG Tab PO SCH (12:36)
[2018-03-13] MEDS: Oxybutynin 5 MG Tab PO SCH ×2 (12:37→20:03)
[2018-03-13] MEDS: Metolazone 5 MG Tab PO SCH (12:38)
[2018-03-13] MEDS: Polyethylene Glycol 3350 Powder 17 GM Packet PO SCH (20:01)
[2018-03-14] MEDS: LORazepam 2 MG/ML SDV IVPUSH PRN ×3 (03:28→12:00)
[2018-03-14] MEDS: Formoterol/Mometasone 200-5 MCG 8.8 GM Inhaler IH SCH ×3 (03:44→19:49)
[2018-03-14] MEDS: Nicotine 21 MG/24 Hr Patch TRDERM SCH (07:30)
[2018-03-14] MEDS: Oxybutynin 5 MG Tab PO SCH ×2 (08:24→19:42)
[2018-03-14] MEDS: Metolazone 5 MG Tab PO SCH (08:24)
[2018-03-14] MEDS: Furosemide 20 MG Tab PO SCH (08:24)
[2018-03-14] MEDS: Folic Acid 1 MG Tab PO SCH (08:24)
[2018-03-14] MEDS: Ferrous Sulfate 325 MG Tab PO SCH ×2 (08:24→19:41)
[2018-03-14] MEDS: Carvedilol 3.125 MG Tab PO SCH ×2 (08:25→19:41)
[2018-03-14] MEDS: Lactated Ringers 1,000 ML IV SCH ×2 (09:04→22:50)
[2018-03-14] MEDS: Polyethylene Glycol 3350 Powder 17 GM Packet PO SCH (19:43)
[2018-03-14] MEDS: Acetaminophen/HYDROcodone 325-10 MG Tab PO PRN (19:55)
[2018-03-15] MEDS: Nicotine 21 MG/24 Hr Patch TRDERM SCH (07:40)
[2018-03-15] MEDS: Formoterol/Mometasone 200-5 MCG 8.8 GM Inhaler IH SCH ×2 (10:10→20:48)
[2018-03-15] MEDS: Furosemide 20 MG Tab PO SCH (10:15)
[2018-03-15] MEDS: Metolazone 5 MG Tab PO SCH (10:15)
[2018-03-15] MEDS: Acetaminophen/HYDROcodone 325-10 MG Tab PO PRN (10:22)
[2018-03-15] MEDS: Lactated Ringers 1,000 ML IV SCH (11:45)
[2018-03-15] MEDS: Folic Acid 1 MG Tab PO SCH (12:24)
[2018-03-15] MEDS: Carvedilol 3.125 MG Tab PO SCH ×2 (12:24→20:44)
[2018-03-15] MEDS: Ferrous Sulfate 325 MG Tab PO SCH ×2 (12:24→20:48)
[2018-03-15] MEDS: Oxybutynin 5 MG Tab PO SCH ×2 (12:26→20:49)
[2018-03-15] MEDS: LORazepam 2 MG/ML SDV IVPUSH PRN (20:09)
[2018-03-15] MEDS: Polyethylene Glycol 3350 Powder 17 GM Packet PO SCH (20:48)
[2018-03-16] MEDS: Lactated Ringers 1,000 ML IV SCH ×2 (00:50→14:08)
[2018-03-16] MEDS ORDERED: fentaNYL 25 MCG/HR Transdermal Patch ONE (07:22)
[2018-03-16] MEDS: fentaNYL 25 MCG/HR Transdermal Patch TRDERM SCH (08:55)
[2018-03-16] MEDS: Carvedilol 3.125 MG Tab PO SCH ×2 (09:04→20:17)
[2018-03-16] MEDS: Oxybutynin 5 MG Tab PO SCH ×2 (09:06→20:16)
[2018-03-16] MEDS: Folic Acid 1 MG Tab PO SCH (09:06)
[2018-03-16] MEDS: Furosemide 20 MG Tab PO SCH (09:13)
[2018-03-16] MEDS: Ferrous Sulfate 325 MG Tab PO SCH ×2 (09:13→20:16)
[2018-03-16] MEDS: Metolazone 5 MG Tab PO SCH (09:13)
[2018-03-16] MEDS: Formoterol/Mometasone 200-5 MCG 8.8 GM Inhaler IH SCH ×2 (09:21→20:15)
[2018-03-16] MEDS: Nicotine 21 MG/24 Hr Patch TRDERM SCH (09:22)
[2018-03-16] MEDS: Acetaminophen/HYDROcodone 325-10 MG Tab PO PRN (15:24)
[2018-03-16] MEDS: Polyethylene Glycol 3350 Powder 17 GM Packet PO SCH (19:30)
[2018-03-16] MEDS: LORazepam 2 MG/ML SDV IVPUSH PRN (20:17)
[2018-03-17] MEDS: Lactated Ringers 1,000 ML IV SCH ×2 (03:27→16:47)
[2018-03-17] MEDS: Folic Acid 1 MG Tab PO SCH (08:08)
[2018-03-17] MEDS: Ferrous Sulfate 325 MG Tab PO SCH ×2 (08:08→20:15)
[2018-03-17] MEDS: Oxybutynin 5 MG Tab PO SCH ×2 (08:08→20:15)
[2018-03-17] MEDS: Formoterol/Mometasone 200-5 MCG 8.8 GM Inhaler IH SCH ×2 (08:08→20:15)
[2018-03-17] MEDS: Metolazone 5 MG Tab PO SCH (08:08)
[2018-03-17] MEDS: Carvedilol 3.125 MG Tab PO SCH ×2 (08:09→20:09)
[2018-03-17] MEDS: Nicotine 21 MG/24 Hr Patch TRDERM SCH (08:09)
[2018-03-17] MEDS: Furosemide 20 MG Tab PO SCH (08:09)
[2018-03-17] MEDS: Acetaminophen/HYDROcodone 325-10 MG Tab PO PRN ×2 (08:10→20:16)
[2018-03-17] MEDS ORDERED: LORazepam 1 MG Tab ONE (19:53)
[2018-03-17] MEDS: Polyethylene Glycol 3350 Powder 17 GM Packet PO SCH (20:14)
[2018-03-18] MEDS: Lactated Ringers 1,000 ML IV SCH ×2 (05:58→19:26)
[2018-03-18] MEDS: Folic Acid 1 MG Tab PO SCH (07:52)
[2018-03-18] MEDS: Acetaminophen/HYDROcodone 325-10 MG Tab PO PRN (07:52)
[2018-03-18] MEDS: Carvedilol 3.125 MG Tab PO SCH ×2 (07:52→21:00)
[2018-03-18] MEDS: Oxybutynin 5 MG Tab PO SCH ×2 (07:52→20:45)
[2018-03-18] MEDS: Furosemide 20 MG Tab PO SCH (07:52)
[2018-03-18] MEDS: Ferrous Sulfate 325 MG Tab PO SCH ×2 (07:53→23:15)
[2018-03-18] MEDS: Nicotine 21 MG/24 Hr Patch TRDERM SCH (07:53)
[2018-03-18] MEDS: Metolazone 5 MG Tab PO SCH (10:17)
[2018-03-18] MEDS: Formoterol/Mometasone 200-5 MCG 8.8 GM Inhaler IH SCH ×2 (10:17→20:34)
[2018-03-18] MEDS ORDERED: LORazepam 1 MG Tab ONE (19:06)
[2018-03-18] MEDS: Polyethylene Glycol 3350 Powder 17 GM Packet PO SCH (23:15)
[2018-03-19] MEDS: Metolazone 5 MG Tab PO SCH (08:02)
[2018-03-19] MEDS: Nicotine 21 MG/24 Hr Patch TRDERM SCH (08:02)
[2018-03-19] MEDS: Oxybutynin 5 MG Tab PO SCH (08:02)
[2018-03-19] MEDS: Furosemide 20 MG Tab PO SCH (08:03)
[2018-03-19] MEDS: Folic Acid 1 MG Tab PO SCH (08:03)
[2018-03-19] MEDS: Carvedilol 3.125 MG Tab PO SCH ×2 (08:03→20:14)
[2018-03-19] MEDS: Acetaminophen/HYDROcodone 325-10 MG Tab PO PRN ×2 (08:03→20:00)
[2018-03-19] MEDS: Ferrous Sulfate 325 MG Tab PO SCH ×2 (08:03→20:00)
[2018-03-19] MEDS: fentaNYL 25 MCG/HR Transdermal Patch TRDERM SCH (08:04)
[2018-03-19] MEDS: Formoterol/Mometasone 200-5 MCG 8.8 GM Inhaler IH SCH ×2 (08:04→20:00)
[2018-03-19] MEDS: Lactated Ringers 1,000 ML IV SCH (09:01)
[2018-03-19] MEDS ORDERED: Morphine 2 MG/ML Syringe IVPUSH ONE (10:07)
[2018-03-19] MEDS: Polyethylene Glycol 3350 Powder 17 GM Packet PO SCH (19:55)
[2018-03-19] MEDS ORDERED: LORazepam 1 MG Tab ONE (20:00)
[2018-03-20] MEDS: Oxybutynin 5 MG Tab PO SCH ×3 (01:02→20:05)
[2018-03-20] MEDS: Acetaminophen/HYDROcodone 325-10 MG Tab PO PRN ×3 (01:06→20:05)
[2018-03-20] MEDS: Carvedilol 3.125 MG Tab PO SCH ×2 (08:57→19:48)
[2018-03-20] MEDS: Metolazone 5 MG Tab PO SCH (08:58)
[2018-03-20] MEDS: Folic Acid 1 MG Tab PO SCH (08:58)
[2018-03-20] MEDS: Ferrous Sulfate 325 MG Tab PO SCH ×2 (09:12→20:05)
[2018-03-20] MEDS: Furosemide 20 MG Tab PO SCH (09:12)
[2018-03-20] MEDS: Formoterol/Mometasone 200-5 MCG 8.8 GM Inhaler IH SCH ×2 (09:18→20:04)
[2018-03-20] MEDS: Nicotine 21 MG/24 Hr Patch TRDERM SCH (09:28)
[2018-03-20] MEDS: Lactated Ringers 1,000 ML IV SCH (11:04)
[2018-03-20] MEDS: Polyethylene Glycol 3350 Powder 17 GM Packet PO SCH (20:05)
[2018-03-21] MEDS: Lactated Ringers 1,000 ML IV SCH (00:08)
[2018-03-21] MEDS: Oxybutynin 5 MG Tab PO SCH ×2 (09:52→20:04)
[2018-03-21] MEDS: Metolazone 5 MG Tab PO SCH (09:52)
[2018-03-21] MEDS: Carvedilol 3.125 MG Tab PO SCH ×2 (09:52→20:04)
[2018-03-21] MEDS: Furosemide 20 MG Tab PO SCH (09:52)
[2018-03-21] MEDS: Acetaminophen/HYDROcodone 325-10 MG Tab PO PRN (09:52)
[2018-03-21] MEDS: Formoterol/Mometasone 200-5 MCG 8.8 GM Inhaler IH SCH ×2 (10:39→20:05)
[2018-03-21] MEDS: Ferrous Sulfate 325 MG Tab PO SCH (10:39)
[2018-03-21] MEDS: Nicotine 21 MG/24 Hr Patch TRDERM SCH (10:40)
[2018-03-21] MEDS: Folic Acid 1 MG Tab PO SCH (10:40)
--- NOTE | 2018-03-21 14:56 | PCM.PN ---
- General Info Date of Service: 03/14/18 Subjective Update: This is a 78yo M with severe pain and deconditioning admitted for subacute care and management for acute on chronic renal failure. Patient is being hydrated due to progressive renal dysfunction and to prevent progression. His deterioration has stabilized with the fluid hydration. This is according to family wishes and patient wishes. Family and patient are in agreement. Patient unable to be transferred to other facilities due to his acute on chronic renal disease where he can obtain this level of care and IVF. Functional Status: Reports: Pain Controlled, Tolerating Diet - Review of Systems General: Reports: Weakness HEENT: Reports: No Symptoms Pulmonary: Reports: No Symptoms Cardiovascular: Reports: No Symptoms Gastrointestinal: Reports: No Symptoms Genitourinary: Reports: Incontinence Musculoskeletal: Reports: Back Pain, Joint Pain Skin: Reports: No Symptoms Neurological: Reports: Pre-Existing Deficit, Trouble Speaking, Difficulty Walking, Weakness, Other (hx of CVA) Psychiatric: Reports: No Symptoms - Patient Data Vitals - Most Recent: Last Vital Signs Temp 36.4 C 03/20/18 07:44 Pulse 69 03/20/18 19:48 Resp 15 03/20/18 07:44 BP 129/69 03/20/18 19:48 Pulse Ox 90 L 03/21/18 08:00 Weight - Most Recent: 53.694 kg I&O - Last 24 Hours: Intake & Output 03/20/18 03/21/18 03/21/18 22:59 06:59 14:59 Intake Total 900 900 Balance 900 900 Med Orders - Current: Current Medications Hydrocodone Bitart/Acetaminophen ([place] 325-10 Mg) 1 tab PO Q6H PRN PRN Reason: MODERATE PAIN Last Admin: 03/21/18 09:52 Dose: 0.5 tab Albuterol (Ventolin Hfa) 0 gm INH 5XDAY PRN PRN Reason: Shortness of Breath Carvedilol (Coreg) 3.125 mg PO BID [facility] Last Admin: 03/21/18 09:52 Dose: 3.125 mg Fentanyl (Duragesic) 25 mcg TRDERM Q72H [facility] Last Admin: 03/19/18 08:04 Dose: 25 mcg Furosemide (Lasix) 20 mg PO DAILY [facility] Last Admin: 03/21/18 09:52 Dose: 20 mg Lactated Ringer's (Ringers, Lactated) 1,000 mls @ 75 mls/hr IV ASDIRECTED [facility] Last Admin: 03/21/18 00:08 Dose: 75 mls/hr Lorazepam (Ativan) 0.5 mg IVPUSH Q4H PRN PRN Reason: Anxiety Last Admin: 03/16/18 20:17 Dose: 0.5 mg Metolazone (Zaroxolyn) 5 mg PO DAILY [facility] Last Admin: 03/21/18 09:52 Dose: 5 mg Miscellaneous Information (Remove Patch) 1 ea TRDERM Q72H [facility] Last Admin: 03/19/18 08:38 Dose: 1 ea Mometasone Furoate/Formoterol Fumar (Dulera 200-5 Mcg) 2 puff IH BID [facility] Last Admin: 03/21/18 10:39 Dose: Not Given Nicotine (Habitrol) 21 mg TRDERM DAILY [facility] Last Admin: 03/21/18 10:40 Dose: 21 mg Nitroglycerin (Nitrostat) 0.4 mg SL ASDIRECTED PRN PRN Reason: Pain Oxybutynin Chloride (Oxybutynin) 5 mg PO BID [facility] Last Admin: 03/21/18 09:52 Dose: 5 mg Polyethylene Glycol (Miralax) 17 gm PO BEDTIME [facility] Last Admin: 03/20/18 20:05 Dose: Not Given Senna/Docusate Sodium (Senna Plus) 1 tab PO BID [facility] Last Admin: 03/21/18 09:52 Dose: 1 tab Discontinued Medications Hydrocodone Bitart/Acetaminophen ([place] 325-10 Mg) 1 tab PO Q6H [facility] Last Admin: 03/13/18 12:33 Dose: Not Given Hydrocodone Bitart/Acetaminophen ([place] 325-10 Mg) Confirm Administered Dose 1 tab .ROUTE .STK-MED ONE Stop: 03/05/18 07:24 Last Admin: 03/05/18 10:13 Dose: Not Given Hydrocodone Bitart/Acetaminophen ([place] 325-10 Mg) Confirm Administered Dose 1 tab .ROUTE .STK-MED ONE Stop: 03/12/18 17:02 Last Admin: 03/12/18 17:28 Dose: Not Given Bisacodyl (Dulcolax) 10 mg RECTAL ONETIME ONE Stop: 03/03/18 18:19 Last Admin: 03/03/18 21:35 Dose: 10 mg Bisacodyl (Dulcolax) Confirm Administered Dose 10 mg .ROUTE .STK-MED ONE Stop: 03/03/18 18:22 Last Admin: 03/03/18 20:04 Dose: Not Given Doxycycline Hyclate (Vibramycin) 100 mg PO BID [facility] Last Admin: 03/13/18 12:34 Dose: Not Given Fentanyl (Duragesic) 12 mcg TRDERM Q72H [facility] Last Admin: 03/11/18 16:00 Dose: 12 mcg Fentanyl (Duragesic) 25 mcg TRDERM Q72H [facility] Last Admin: 03/13/18 12:32 Dose: Not Given Fentanyl (Duragesic) Confirm Administered Dose 25 mcg .ROUTE .[employer]-MED ONE Stop: 03/16/18 07:23 Last Admin: 03/16/18 08:53 Dose: Not Given Ferrous Sulfate (Ferrous Sulfate) 325 mg PO BID [facility] Last Admin: 03/21/18 10:39 Dose: Not Given Folic Acid (Folic Acid) 1 mg PO DAILY [facility] Last Admin: 03/21/18 10:40 Dose: Not Given Furosemide (Lasix) 20 mg IVPUSH DAILY [facility] Last Admin: 03/05/18 10:33 Dose: Not Given Furosemide (Lasix) Confirm Administered Dose 20 mg .ROUTE .STK-MED ONE Stop: 03/05/18 10:00 Last Admin: 03/05/18 10:12 Dose: Not Given Sodium Chloride (Sodium Chloride 0.45%) 1,000 mls @ 100 [facility] Last Admin: 03/03/18 17:15 Dose: 100 mls/hr Dextrose/Lactated Ringer's (Dextrose 5%-Lactated Ringers) 1,000 mls @ 100 mls/ [facility] Stop: 03/09/18 02:14 Last Admin: 03/08/18 05:42 Dose: 100 mls/hr Sodium Chloride (Normal Saline) 1,000 mls @ 0 mls[facility] Last Admin: 03/08/18 16:19 Dose: 30 mls/hr Lorazepam (Ativan) Confirm Administered Dose 1 mg .ROUTE .STK-MED ONE Stop: 03/17/18 19:54 Last Admin: 03/17/18 20:09 Dose: 1 mg Lorazepam (Ativan) Confirm Administered Dose 1 mg .ROUTE .STK-MED ONE Stop: 03/18/18 19:07 Last Admin: 03/18/18 20:56 Dose: 1 mg Lorazepam (Ativan) Confirm Administered Dose 1 mg .ROUTE .STK-MED ONE Stop: 03/19/18 20:01 Last Admin: 03/19/18 20:15 Dose: 1 mg Miscellaneous Information (Remove Patch) 1 ea TRDERM Q72H [facility] Last Admin: 03/13/18 12:31 Dose: 1 ea Morphine Sulfate (Morphine) 2 mg IVPUSH Q2H PRN PRN Reason: Pain Last Admin: 03/04/18 12:20 Dose: 2 mg Morphine Sulfate (Morphine) 2 mg IVPUSH Q2H PRN PRN Reason: pain Morphine Sulfate (Morphine) 2 mg SUBCUT Q4H PRN PRN Reason: MODERATE Pain Last Admin: 03/08/18 14:20 Dose: 2 mg Morphine Sulfate (Morphine) 2 mg IVPUSH Q4H PRN PRN Reason: Pain Last Admin: 03/13/18 05:15 Dose: 2 mg Morphine Sulfate (Morphine) 2 mg IVPUSH ONETIME ONE Stop: 03/19/18 10:08 Last Admin: 03/19/18 19:54 Dose: Not Given Sodium Chloride (Saline Flush) 10 ml FLUSH ASDIRECTED PRN PRN Reason: Other Tuberculin PPD (Aplisol) 5 unit IDERM ONETIME ONE Stop: 03/02/18 20:04 - Exam General: Alert, Cooperative HEENT: Pupils Equal, Pupils Reactive, EOMI Neck: Supple Lungs: Clear to Auscultation, Normal Respiratory Effort Cardiovascular: Regular Rate, Regular Rhythm GI/Abdominal Exam: Normal Bowel Sounds Extremities: Normal Inspection - Problem List & Annotations (1) Acute renal failure SNOMED Code(s): 36057368 Code(s): N17.9 - ACUTE KIDNEY FAILURE, UNSPECIFIED Status: Chronic Priority: High Current Visit: Yes (2) Anemia due to blood loss, chronic SNOMED Code(s): 166594208 Code(s): D50.0 - IRON DEFICIENCY ANEMIA SECONDARY TO BLOOD LOSS (CHRONIC) Status: Chronic Priority: Medium Current Visit: Yes (3) Dizziness SNOMED Code(s): 758321899, 218712881 Code(s): R42 - DIZZINESS AND GIDDINESS Status: Chronic Priority: Medium Current Visit: Yes Onset Date: 02/16/16 Annotation/Comment:: 02/16/16 - Dizziness due to hypotension (4) Hypotension SNOMED Code(s): 33324283 Code(s): I95.9 - HYPOTENSION, UNSPECIFIED Status: Chronic Priority: Medium Current Visit: Yes Onset Date: 02/16/16 Qualifiers: Hypotension type: other hypotension type Qualified Code(s): I95.89 - Other hypotension Annotation/Comment:: 02/16/16 - Dizziness due to hypotension (5) Palliative care patient SNOMED Code(s): 215454749 Code(s): Z51.5 - ENCOUNTER FOR PALLIATIVE CARE Status: Chronic Priority: High Current Visit: Yes - Problem List Review Problem List Initiated/Reviewed/Updated: Yes - Plan Plan:: We will continue current management and comfort cares. Patient is very weak and unable to get out of bed. His is present and making his medical decisions. He will continue palliative care. We will continue with pain management. Patient will be monitored and continue current diet and cares. 03/21/18 Patient plan for IVF hydration due to progressive renal dysfunction. Patient deterioration will be mitigated with current IVF hydration. Family desire this course of action and patient appears to agree as well. Patient's expected duration of life expectancy is less than 6 months. He does not qualify for other facilities due to his acute renal dysfunction with IVF hydration and current cares. We will continue with current pain management.
[2018-03-21] MEDS: Polyethylene Glycol 3350 Powder 17 GM Packet PO SCH (20:05)
[2018-03-22] MEDS: Acetaminophen/HYDROcodone 325-10 MG Tab PO PRN (05:39)
[2018-03-22] MEDS: Carvedilol 3.125 MG Tab PO SCH ×2 (08:23→20:16)
[2018-03-22] MEDS: Formoterol/Mometasone 200-5 MCG 8.8 GM Inhaler IH SCH ×2 (08:27→20:20)
[2018-03-22] MEDS: Nicotine 21 MG/24 Hr Patch TRDERM SCH (08:28)
[2018-03-22] MEDS: Furosemide 20 MG Tab PO SCH (08:29)
[2018-03-22] MEDS: Oxybutynin 5 MG Tab PO SCH ×2 (08:29→20:16)
[2018-03-22] MEDS: Metolazone 5 MG Tab PO SCH (08:33)
[2018-03-22] MEDS: fentaNYL 25 MCG/HR Transdermal Patch TRDERM SCH (08:40)
[2018-03-22] MEDS: Polyethylene Glycol 3350 Powder 17 GM Packet PO SCH (20:16)
[2018-03-23] MEDS ORDERED: Menthol/Zinc Oxide Ointment 113 GM Tube TOP ONE (05:40)
[2018-03-23] MEDS: Menthol/Zinc Oxide Ointment 113 GM Tube TOP PRN ×2 (05:42→07:25)
[2018-03-23] MEDS: Furosemide 20 MG Tab PO SCH (07:43)
[2018-03-23] MEDS: Carvedilol 3.125 MG Tab PO SCH ×2 (07:43→20:32)
[2018-03-23] MEDS: Oxybutynin 5 MG Tab PO SCH ×2 (07:43→20:32)
[2018-03-23] MEDS: Nicotine 21 MG/24 Hr Patch TRDERM SCH (07:44)
[2018-03-23] MEDS: Metolazone 5 MG Tab PO SCH (07:44)
[2018-03-23] MEDS: Acetaminophen/HYDROcodone 325-10 MG Tab PO PRN (07:45)
[2018-03-23] MEDS ORDERED: Sodium Chloride 0.9% 10 ML Syringe FLUSH PRN (09:00)
[2018-03-23] MEDS ORDERED: Lidocaine/Prilocaine 2.5-2.5% Crm 5 GM Tube ONE (09:36)
[2018-03-23] MEDS: LORazepam 0.5 MG Tab PO PRN (10:04)
[2018-03-23] MEDS: Formoterol/Mometasone 200-5 MCG 8.8 GM Inhaler IH SCH ×2 (10:10→20:32)
[2018-03-23] MEDS: LORazepam 2 MG/ML SDV IVPUSH PRN (18:43)
[2018-03-23] MEDS: Polyethylene Glycol 3350 Powder 17 GM Packet PO SCH (19:20)
[2018-03-24] MEDS: Lactated Ringers 1,000 ML IV SCH ×2 (01:28→14:17)
[2018-03-24] MEDS: LORazepam 2 MG/ML SDV IVPUSH PRN ×5 (02:49→23:11)
[2018-03-24] MEDS: Nicotine 21 MG/24 Hr Patch TRDERM SCH (09:25)
[2018-03-24] MEDS: Furosemide 20 MG Tab PO SCH ×2 (09:26→11:46)
[2018-03-24] MEDS: Acetaminophen/HYDROcodone 325-10 MG Tab PO PRN (09:29)
[2018-03-24] MEDS: Metolazone 5 MG Tab PO SCH ×2 (09:31→11:46)
[2018-03-24] MEDS: Carvedilol 3.125 MG Tab PO SCH ×3 (09:31→19:21)
[2018-03-24] MEDS: Oxybutynin 5 MG Tab PO SCH ×2 (09:32→11:46)
[2018-03-24] MEDS: Formoterol/Mometasone 200-5 MCG 8.8 GM Inhaler IH SCH ×2 (11:46→19:20)
[2018-03-24] MEDS ORDERED: fentaNYL 12 MCG/HR Transdermal Patch ONE (18:04)
[2018-03-24] MEDS ORDERED: fentaNYL 12 MCG/HR Transdermal Patch TRDERM SCH (18:30)
[2018-03-24] MEDS: Polyethylene Glycol 3350 Powder 17 GM Packet PO SCH (19:20)
[2018-03-25] MEDS: Lactated Ringers 1,000 ML IV SCH ×2 (03:20→15:23)
[2018-03-25] MEDS: LORazepam 2 MG/ML SDV IVPUSH PRN ×3 (06:04→22:18)
[2018-03-25] MEDS: Nicotine 21 MG/24 Hr Patch TRDERM SCH (08:15)
[2018-03-25] MEDS: fentaNYL 25 MCG/HR Transdermal Patch TRDERM SCH (08:23)
[2018-03-25] MEDS: Furosemide 20 MG Tab PO SCH (08:26)
[2018-03-25] MEDS: Carvedilol 3.125 MG Tab PO SCH ×2 (08:27→22:16)
[2018-03-25] MEDS: Formoterol/Mometasone 200-5 MCG 8.8 GM Inhaler IH SCH ×2 (08:27→22:16)
[2018-03-25] MEDS: LORazepam 0.5 MG Tab PO PRN (12:05)
[2018-03-25] MEDS: Acetaminophen/HYDROcodone 325-10 MG Tab PO PRN (18:43)
[2018-03-25] MEDS: Polyethylene Glycol 3350 Powder 17 GM Packet PO SCH (22:17)
[2018-03-26] MEDS: LORazepam 2 MG/ML SDV IVPUSH PRN ×4 (04:04→23:11)
[2018-03-26] MEDS: Acetaminophen/HYDROcodone 325-10 MG Tab PO PRN ×3 (04:05→16:45)
[2018-03-26] MEDS: Lactated Ringers 1,000 ML IV SCH ×2 (04:06→15:59)
[2018-03-26] MEDS: Nicotine 21 MG/24 Hr Patch TRDERM SCH (09:29)
[2018-03-26] MEDS: Furosemide 20 MG Tab PO SCH (09:30)
[2018-03-26] MEDS: Formoterol/Mometasone 200-5 MCG 8.8 GM Inhaler IH SCH ×2 (09:30→20:52)
[2018-03-26] MEDS: Carvedilol 3.125 MG Tab PO SCH ×2 (09:35→20:51)
[2018-03-26] MEDS: Morphine 2 MG/ML Syringe IVPUSH PRN ×2 (19:52→23:11)
[2018-03-26] MEDS: fentaNYL 50 MCG/HR Transdermal Patch TRDERM SCH (19:58)
[2018-03-26] MEDS: [UNRECOGNIZED DRUG - REMARK] TRDERM SCH (19:59)
[2018-03-26] MEDS: Polyethylene Glycol 3350 Powder 17 GM Packet PO SCH (20:52)
[2018-03-27] MEDS: Lactated Ringers 1,000 ML IV SCH ×2 (06:30→20:50)
[2018-03-27] MEDS: Nicotine 21 MG/24 Hr Patch TRDERM SCH (08:26)
[2018-03-27] MEDS: Carvedilol 3.125 MG Tab PO SCH ×2 (08:26→20:00)
[2018-03-27] MEDS: Furosemide 20 MG Tab PO SCH (08:27)
[2018-03-27] MEDS: Formoterol/Mometasone 200-5 MCG 8.8 GM Inhaler IH SCH ×2 (08:27→20:00)
[2018-03-27] MEDS: Morphine 2 MG/ML Syringe IVPUSH PRN ×3 (09:10→20:40)
[2018-03-27] MEDS: LORazepam 2 MG/ML SDV IVPUSH PRN ×2 (11:36→20:44)
[2018-03-27] MEDS: [UNRECOGNIZED DRUG - REMARK] TRDERM SCH (18:40)
[2018-03-27] MEDS: Polyethylene Glycol 3350 Powder 17 GM Packet PO SCH (20:00)
[2018-03-28] MEDS: Morphine 2 MG/ML Syringe IVPUSH PRN ×3 (00:15→14:47)
[2018-03-28] MEDS: LORazepam 2 MG/ML SDV IVPUSH PRN (03:40)
[2018-03-28] MEDS: Formoterol/Mometasone 200-5 MCG 8.8 GM Inhaler IH SCH ×2 (08:53→20:18)
[2018-03-28] MEDS: Furosemide 20 MG Tab PO SCH (08:53)
[2018-03-28] MEDS: Carvedilol 3.125 MG Tab PO SCH ×2 (08:53→20:17)
[2018-03-28] MEDS: Nicotine 21 MG/24 Hr Patch TRDERM SCH (09:01)
[2018-03-28] MEDS: Lactated Ringers 1,000 ML IV SCH (16:00)
[2018-03-28] MEDS: Polyethylene Glycol 3350 Powder 17 GM Packet PO SCH (20:18)
[2018-03-29] MEDS: Morphine 2 MG/ML Syringe IVPUSH PRN ×6 (02:05→23:45)
[2018-03-29] MEDS: LORazepam 2 MG/ML SDV IVPUSH PRN ×3 (04:03→16:58)
[2018-03-29] MEDS: Lactated Ringers 1,000 ML IV SCH (05:00)
[2018-03-29] MEDS: Formoterol/Mometasone 200-5 MCG 8.8 GM Inhaler IH SCH (08:54)
[2018-03-29] MEDS: Furosemide 20 MG Tab PO SCH (08:54)
[2018-03-29] MEDS: Carvedilol 3.125 MG Tab PO SCH (08:54)
[2018-03-29] MEDS: Nicotine 21 MG/24 Hr Patch TRDERM SCH (08:54)
[2018-03-29] MEDS ORDERED: Morphine 2 MG/ML Syringe IVPUSH PRN (18:40)
[2018-03-29] MEDS: fentaNYL 50 MCG/HR Transdermal Patch TRDERM SCH (20:39)
--- NOTE | 2018-03-29 23:29 | PN ---
DATE OF VISIT: The patient is a swing-bed patient with terminal cancer. He has been declining over the last couple of days. I did sit down and discuss with pretty much all of his family today how they wish to continue with his care. He is currently getting IV fluid at 75 mL an hour. At this point, there does not seem to be any good indication for continuing his IV fluid, and they would like to discontinue it. We also discussed a [employer] pump. The patient is not really lucid enough to push the [employer] pump on his own. It would decrease the amount of time that the patient would need in preparation for IV morphine if we kept him on a [employer] pump, but I would have to discontinue his patch to start him on a basal rate and he can get it through the IV if it is hep-locked, they would prefer not to have any fluids going at this point, so we will go ahead and continue his morphine on a Hep-Lock. He is currently getting 2 mg prior to movement, etc. We could certainly up that if need be. We upped his patch the other day from 37.5 mcg of fentanyl per hour to 50 mcg/hour patch. He seems to be comfortable unless we are moving him. He is becoming less aware of his surroundings and at this point is declining. We will continue with comfort care. We will discontinue all oral medications as he is unable to take them anyway. We will Hep-Lock his IV and continue with the morphine 2 mg as needed. We can certainly bump this up if he needs a bigger dose with moving him. He is also on Ativan for agitation, which is being given through the IV, but as long as the medications are given prior to moving him, it should not really make much difference as long as he is not moving, he is not in pain or at least does not appear to be in pain. The family was in agreement with this plan, and we will go ahead and discontinue the medications now and Hep-Lock the IV and continue with the morphine adjusting the dose as necessary. MATT/CHAIM /[id number]
[2018-03-30] MEDS: Nicotine 21 MG/24 Hr Patch TRDERM SCH (09:47)
[2018-03-30] MEDS: Sodium Chloride 0.9% 10 ML Syringe FLUSH SCH ×2 (09:48→20:21)
[2018-03-30] MEDS: Morphine 2 MG/ML Syringe IVPUSH PRN (11:11)
[2018-03-30] MEDS: LORazepam 2 MG/ML SDV IVPUSH PRN ×2 (11:15→17:43)
[2018-03-30] MEDS: Morphine 10 MG/ML SDV IVPUSH PRN (17:41)
[2018-03-31] MEDS: Morphine 10 MG/ML SDV IVPUSH PRN ×6 (02:00→23:01)
[2018-03-31] MEDS: Nicotine 21 MG/24 Hr Patch TRDERM SCH (08:00)
[2018-03-31] MEDS: Sodium Chloride 0.9% 10 ML Syringe FLUSH SCH ×2 (08:10→20:30)
[2018-03-31 10:45] VITALS: BP 120/64
[2018-03-31] MEDS: Menthol/Zinc Oxide Ointment 113 GM Tube TOP PRN (20:46)
[2018-04-01] MEDS: Morphine 10 MG/ML SDV IVPUSH PRN ×6 (05:20→22:30)
[2018-04-01] MEDS: Menthol/Zinc Oxide Ointment 113 GM Tube TOP PRN ×2 (05:39→22:37)
[2018-04-01] MEDS ORDERED: Morphine 10 MG/ML SDV ONE ×2 (07:51→11:02)
[2018-04-01] MEDS: Nicotine 21 MG/24 Hr Patch TRDERM SCH (09:52)
[2018-04-01] MEDS: Sodium Chloride 0.9% 10 ML Syringe FLUSH SCH ×2 (09:55→20:02)
[2018-04-01] MEDS: fentaNYL 50 MCG/HR Transdermal Patch TRDERM SCH (19:58)
[2018-04-02] MEDS: Menthol/Zinc Oxide Ointment 113 GM Tube TOP PRN ×2 (02:15→09:10)
[2018-04-02] MEDS: Morphine 10 MG/ML SDV IVPUSH PRN ×3 (02:58→13:41)
[2018-04-02] MEDS: LORazepam 2 MG/ML SDV IVPUSH PRN ×3 (05:06→17:25)
[2018-04-02] MEDS: Sodium Chloride 0.9% 10 ML Syringe FLUSH SCH ×2 (08:02→19:38)
[2018-04-03] MEDS: Menthol/Zinc Oxide Ointment 113 GM Tube TOP PRN (01:00)
[2018-04-03] MEDS: Morphine 2 MG/ML Syringe IVPUSH PRN ×3 (01:04→08:40)
[2018-04-03] MEDS: Sodium Chloride 0.9% 10 ML Syringe FLUSH SCH ×4 (05:39→20:29)
[2018-04-04] MEDS: Sodium Chloride 0.9% 10 ML Syringe FLUSH SCH ×2 (09:17→19:30)
[2018-04-04] MEDS: fentaNYL 50 MCG/HR Transdermal Patch TRDERM SCH (19:39)
[2018-04-05] MEDS: Sodium Chloride 0.9% 10 ML Syringe FLUSH SCH (09:05)
--- NOTE | 2018-04-06 08:35 | PCM.DCSUM1 ---
Discharge Summary - Hospital Course HPI Initial Comments: Pt admit 03-02-2018 with history of bladder cancer and chronic anemia and acute renal failure. Pt has declined in health and has been able to be at home with his significant other, Prabha. Pt history of CAD, COPD and CVA. Pt was placed on palliative care and pain management with Fentanyl transderm and Morphine Sulfate. Intake has declined since admit and pt has been unable to eat for about 2 weeks per staff. This provider was contacted today for of pt at 15:00. Significant other, next of kin, Prabha has been present with pt and was present at time of . Staff are assisting with after life care. No breathing and no heart sounds auscultated per this provider. Diagnosis: Stroke: No - Discharge Data Discharge Date: 04/05/18 Discharge Disposition: 20 Preliminary Cause of *Q: Multi System Organ Failure Condition: Good - Discharge Diagnosis/Problem(s) (1) Acute renal failure SNOMED Code(s): 88510098 ICD Code: N17.9 - ACUTE KIDNEY FAILURE, UNSPECIFIED Status: Chronic Priority: High (2) Anemia due to blood loss, chronic SNOMED Code(s): 701424271 ICD Code: D50.0 - IRON DEFICIENCY ANEMIA SECONDARY TO BLOOD LOSS (CHRONIC) Status: Chronic Priority: Medium - Patient Summary/Data Consults: Consultations 03/02/18 17:29 OT Evaluation and Treatment [CONS] Routine Please Evaluate and Treat. OT Reason for Consult: Strengthening This query below is only for informational purposes and is not editable. Admission Diagnosis/Problem: Renal failure PT Evaluation and Treatment [CONS] Routine Please Evaluate and Treat. PT Reason for Consult: stengthening This query below is only for informational purposes and is not editable. Admission Diagnosis/Problem: Renal failure 03/16/18 09:03 Consult to Speech Language Pathology [[employer] Evaluation and Treatment] [CONS] Routine Please Evaluate and Treat [employer] Reason for Consult: Swallow This query below is only for informational purposes and is not editable. Admission Diagnosis/Problem: Renal failure - Discharge Plan Home Medications: Home Meds Carvedilol 3.125 mg PO BID 12/25/14 [History] Fluticasone/Salmeterol [Advair 250-50] 1 puff INH BID 12/25/14 [History] Nitroglycerin [Nitrostat] 0.4 mg SL ASDIRECTED PRN 02/16/16 [History] Albuterol [Ventolin HFA] 2 puff INH 5XDAY PRN 03/14/17 [History] Ferrous Sulfate 325 mg PO BID 03/14/17 [History] Folic Acid 1 mg PO DAILY 03/14/17 [History] Oxybutynin Chloride 5 mg PO BID 03/14/17 [History] Doxycycline [Vibramycin] 100 mg PO BID cap 03/02/18 [Rx] Morphine 2 mg IVPUSH Q2H PRN syringe 03/02/18 [Rx] Nicotine [Habitrol] 21 mg TRDERM DAILY patch 03/02/18 [Rx] Polyethylene Glycol 3350 [MiraLAX] 17 gm PO BEDTIME packet 03/02/18 [Rx] metOLazone [Zaroxolyn] 5 mg PO DAILY tablet 03/02/18 [Rx] - Discharge Summary/Plan Comment Discharge Summary/Plan Comment: Pt history of bladder cancer and chronic anemia and acute renal failure. Pt has declined in health and has been able to be at home with his significant other, Prabha. Pt history of CAD, COPD and CVA. Pt was placed on palliative care and pain management with Fentanyl transderm and Morphine Sulfate. Intake has declined since admit and pt has been unable to eat for about 2 weeks per staff. This provider was contacted today for of pt at 15:00. Significant other, next of kin, Prabha has been present with pt and was present at time of . Staff are assisting with after life care. No breathing and no heart sounds auscultated per this provider. - General Info Date of Service: 04/05/18 Subjective Update: Staff report pt at 13:00 04-05-2018 - Patient Data Vitals - Most Recent: Last Vital Signs Temp 98.9 F 04/03/18 08:00 Pulse 84 04/03/18 08:00 Resp 8 L 04/03/18 08:00 BP 120/64 03/31/18 08:00 Pulse Ox 93 L 04/03/18 08:00 Weight - Most Recent: 116 lb 1.6 oz Med Orders - Current: Current Medications Discontinued Medications Hydrocodone Bitart/Acetaminophen (Dana 325-10 Mg) 1 tab PO Q6H [facility]IS[facility] Last Admin: 03/13/18 12:33 Dose: Not Given Hydrocodone Bitart/Acetaminophen (Dana 325-10 Mg) Confirm Administered Dose 1 tab .ROUTE .STK-MED ONE Stop: 03/05/18 07:24 Last Admin: 03/05/18 10:13 Dose: Not Given Hydrocodone Bitart/Acetaminophen (Dana 325-10 Mg) Confirm Administered Dose 1 tab .ROUTE .STK-MED ONE Stop: 03/12/18 17:02 Last Admin: 03/12/18 17:28 Dose: Not Given Hydrocodone Bitart/Acetaminophen (Dana 325-10 Mg) 1 tab PO Q6H PRN PRN Reason: MODERATE PAIN Last Admin: 03/26/18 16:45 Dose: 1 tab Albuterol (Ventolin Hfa) 0 gm INH 5XDAY PRN PRN Reason: Shortness of Breath Bisacodyl (Dulcolax) 10 mg RECTAL ONETIME ONE Stop: 03/03/18 18:19 Last Admin: 03/03/18 21:35 Dose: 10 mg Bisacodyl (Dulcolax) Confirm Administered Dose 10 mg .ROUTE .STK-MED ONE Stop: 03/03/18 18:22 Last Admin: 03/03/18 20:04 Dose: Not Given Calamine/Phenol (Calmoseptine) 0 gm TOP QID PRN PRN Reason: [place] area redness Last Admin: 04/03/18 01:00 Dose: 1 applic Calamine/Phenol (Calmoseptine) Confirm Administered Dose 113 gm TOP .STK-MED ONE Stop: 03/23/18 05:41 Last Admin: 03/23/18 06:23 Dose: Not Given Carvedilol (Coreg) 3.125 mg PO BID [facility] Last Admin: 03/29/18 08:54 Dose: Not Given Doxycycline Hyclate (Vibramycin) 100 mg PO BID [facility] Last Admin: 03/13/18 12:34 Dose: Not Given Fentanyl (Duragesic) 12 mcg TRDERM Q72H [facility] Last Admin: 03/11/18 16:00 Dose: 12 mcg Fentanyl (Duragesic) 25 mcg TRDERM Q72H [facility] Last Admin: 03/13/18 12:32 Dose: Not Given Fentanyl (Duragesic) 25 mcg TRDERM Q72H [facility] Last Admin: 03/25/18 08:23 Dose: 25 mcg Fentanyl (Duragesic) Confirm Administered Dose 25 mcg .ROUTE .STK-MED ONE Stop: 03/16/18 07:23 Last Admin: 03/16/18 08:53 Dose: Not Given Fentanyl (Duragesic) 12 mcg TRDERM Q72H [facility] Last Admin: 03/24/18 18:19 Dose: 12 mcg Fentanyl (Duragesic) Confirm Administered Dose 12 mcg .ROUTE .STK-MED ONE Stop: 03/24/18 18:05 Last Admin: 03/24/18 18:19 Dose: Not Given Fentanyl (Duragesic) 50 mcg TRDERM Q72H [facility] Last Admin: 04/04/18 19:39 Dose: 50 mcg Ferrous Sulfate (Ferrous Sulfate) 325 mg PO BID [facility] Last Admin: 03/21/18 10:39 Dose: Not Given Folic Acid (Folic Acid) 1 mg PO DAILY [facility] Last Admin: 03/21/18 10:40 Dose: Not Given Furosemide (Lasix) 20 mg IVPUSH DAILY [facility] Last Admin: 03/05/18 10:33 Dose: Not Given Furosemide (Lasix) 20 mg PO DAILY [facility] Last Admin: 03/29/18 08:54 Dose: Not Given Furosemide (Lasix) Confirm Administered Dose 20 mg .ROUTE .K-MED ONE Stop: 03/05/18 10:00 Last Admin: 03/05/18 10:12 Dose: Not Given Sodium Chloride (Sodium Chloride 0.45%) 1,000 mls @ 100 mls/hr IV ASDIRECTED [facility] Last Admin: 03/03/18 17:15 Dose: 100 mls/hr Dextrose/Lactated Ringer's (Dextrose 5%-Lactated Ringers) 1,000 mls @ 100 mls/ hr IV ASDIRECTED [facility] Stop: 03/09/18 02:14 Last Admin: 03/08/18 05:42 Dose: 100 mls/hr Sodium Chloride (Normal Saline) 1,000 mls @ 0 mls/hr IV ASDIRECTED [facility] Last Admin: 03/08/18 16:19 Dose: 30 mls/hr Lactated Ringer's (Ringers, Lactated) 1,000 mls @ 75 mls/hr IV ASDIRECTED [facility] Last Admin: 03/21/18 00:08 Dose: 75 mls/hr Lactated Ringer's (Ringers, Lactated) 1,000 mls @ 75 mls/hr IV ASDIRECTED [facility] Last Admin: 03/29/18 05:00 Dose: 75 mls/hr Lidocaine/Prilocaine (Emla Crm) Confirm Administered Dose 5 gm .ROUTE .STK-MED ONE Stop: 03/23/18 09:37 Last Admin: 03/23/18 10:11 Dose: 5 gram Lorazepam (Ativan) 0.5 mg IVPUSH Q4H PRN PRN Reason: Anxiety Last Admin: 04/02/18 17:25 Dose: 0.5 mg Lorazepam (Ativan) Confirm Administered Dose 1 mg .ROUTE .STK-MED ONE Stop: 03/17/18 19:54 Last Admin: 03/17/18 20:09 Dose: 1 mg Lorazepam (Ativan) Confirm Administered Dose 1 mg .ROUTE .STK-MED ONE Stop: 03/18/18 19:07 Last Admin: 03/18/18 20:56 Dose: 1 mg Lorazepam (Ativan) Confirm Administered Dose 1 mg .ROUTE .STK-MED ONE Stop: 03/19/18 20:01 Last Admin: 03/19/18 20:15 Dose: 1 mg Lorazepam (Ativan) 0.5 mg PO Q4H PRN PRN Reason: Agitation Last Admin: 03/25/18 12:05 Dose: 0.5 mg Metolazone (Zaroxolyn) 5 mg PO DAILY [facility] Last Admin: 03/24/18 11:46 Dose: Not Given Miscellaneous Information (Remove Patch) 1 ea TRDERM Q72H [facility] Last Admin: 03/13/18 12:31 Dose: 1 ea Miscellaneous Information (Remove Patch) 1 ea TRDERM Q72H [facility] Last Admin: 03/25/18 08:19 Dose: 1 ea Miscellaneous Information (Remove Patch) 1 ea TRDERM Q72H [facility] Last Admin: 03/27/18 18:40 Dose: Not Given Miscellaneous Information (Remove Patch) 1 ea TRDERM Q72H [facility] Mometasone Furoate/Formoterol Fumar (Dulera 200-5 Mcg) 2 puff IH BID [facility] Last Admin: 03/29/18 08:54 Dose: Not Given Morphine Sulfate (Morphine) 2 mg IVPUSH Q2H PRN PRN Reason: Pain Last Admin: 03/04/18 12:20 Dose: 2 mg Morphine Sulfate (Morphine) 2 mg IVPUSH Q2H PRN PRN Reason: pain Morphine Sulfate (Morphine) 2 mg SUBCUT Q4H PRN PRN Reason: MODERATE Pain Last Admin: 03/08/18 14:20 Dose: 2 mg Morphine Sulfate (Morphine) 2 mg IVPUSH Q4H PRN PRN Reason: Pain Last Admin: 03/13/18 05:15 Dose: 2 mg Morphine Sulfate (Morphine) 2 mg IVPUSH ONETIME ONE Stop: 03/19/18 10:08 Last Admin: 03/19/18 19:54 Dose: Not Given Morphine Sulfate (Morphine) 2 mg IVPUSH Q1H PRN PRN Reason: Breakthrough Pain Last Admin: 04/03/18 08:40 Dose: 2 mg Morphine Sulfate (Morphine) 4 mg IVPUSH Q1H PRN PRN Reason: Pain Morphine Sulfate (Morphine) 4 mg IVPUSH Q1H PRN PRN Reason: MODERATE PAIN Last Admin: 04/02/18 13:41 Dose: 4 mg Morphine Sulfate (Morphine) Confirm Administered Dose 10 mg .ROUTE .STK-MED ONE Stop: 04/01/18 07:52 Last Admin: 04/01/18 09:23 Dose: Not Given Morphine Sulfate (Morphine) Confirm Administered Dose 10 mg .ROUTE .STK-MED ONE Stop: 04/01/18 11:03 Last Admin: 04/01/18 10:59 Dose: Not Given Morphine Sulfate (Morphine Sulfate) 4 mg IVPUSH Q1H PRN PRN Reason: MODERATE PAIN Last Admin: 04/05/18 14:30 Dose: 4 mg Nicotine (Habitrol) 21 mg TRDERM DAILY [facility] Last Admin: 04/01/18 09:52 Dose: Not Given Nitroglycerin (Nitrostat) 0.4 mg SL ASDIRECTED PRN PRN Reason: Pain Oxybutynin Chloride (Oxybutynin) 5 mg PO BID [facility] Last Admin: 03/24/18 11:46 Dose: Not Given Polyethylene Glycol (Miralax) 17 gm PO BEDTIME [facility] Last Admin: 03/28/18 20:18 Dose: Not Given Senna/Docusate Sodium (Senna Plus) 1 tab PO BID [facility] Last Admin: 03/29/18 08:54 Dose: Not Given Sodium Chloride (Saline Flush) 10 ml FLUSH ASDIRECTED PRN PRN Reason: Other Sodium Chloride (Saline Flush) 10 ml FLUSH ASDIRECTED PRN PRN Reason: Keep Vein Open Last Admin: 03/23/18 10:15 Dose: 10 ml Sodium Chloride (Saline Flush) 10 ml FLUSH BID [facility] Last Admin: 04/05/18 09:05 Dose: 10 ml Tuberculin PPD (Aplisol) 5 unit IDERM ONETIME ONE Stop: 03/02/18 20:04 - Exam Lungs: Reports: Other (no breath sounds) Cardiovascular: Reports: Other (no heart sounds auscultated)
== END 2018-04-05 15:00 | disposition expired | DRG 951 ==
LOC: LB.MS 16:49 → UNDOADMIN 16:49 → LB.MS 17:29
PROVIDERS: ADMIT Family Medicine; ATTEND Family Medicine
DX: Z51.5 Encounter for palliative care (principal); N17.9 Acute kidney failure, unspecified; Z66 Do not resuscitate; C67.9 Malignant neoplasm of bladder, unspecified; I25.10 Atherosclerotic heart disease of native coronary artery without angina pectoris; J44.9 Chronic obstructive pulmonary disease, unspecified; R53.1 Weakness; R63.0 Anorexia; K21.9 Gastro-esophageal reflux disease without esophagitis; M19.90 Unspecified osteoarthritis, unspecified site; L40.9 Psoriasis, unspecified; R53.83 Other fatigue; N18.9 Chronic kidney disease, unspecified; R45.1 Restlessness and agitation; R31.0 Gross hematuria; R32 Unspecified urinary incontinence; D50.0 Iron deficiency anemia secondary to blood loss (chronic); I95.9 Hypotension, unspecified; Z79.899 Other long term (current) drug therapy; Z86.73 Personal history of transient ischemic attack (TIA), and cerebral infarction without residual deficits; Z95.1 Presence of aortocoronary bypass graft; Z88.8 Allergy status to other drugs, medicaments and biological substances; Z95.5 Presence of coronary angioplasty implant and graft
CPT/HCPCS: 36415; 80048; 80053; 85025; 92526-GN; 92610-GN; 97110-GO; 97162-GP; 97166-GO; 97530-GO; 97530-GP; A9270-GY; J1940; J2060; J2270; J3490; J7030; J7042; J7050; J7120